=== PATIENT | female | born 1955 | race Caucasian/White ===

== ENCOUNTER 2017-02-21 19:04 | Inpatient (IN) | payer BC, OTHER ==
[2017-02-21] MEDS ORDERED: KETOROLAC 30 MG/ML 1 ML VIAL IVP STA (19:50)
[2017-02-21] MEDS ORDERED: SODIUM CHLORIDE 0.9% 1,000 ML IV STA (19:50)
[2017-02-21] MEDS ORDERED: SODIUM CHLORIDE 0.9% 500 ML IV STA (19:50)
--- NOTE | 2017-02-21 20:34 | XR ---
EXAMINATION TYPE: XR chest 2V DATE OF EXAM: 02/21/2017 COMPARISON: 09/16/16 HISTORY: Shortness of breath TECHNIQUE: Frontal and lateral views of the chest are obtained. FINDINGS: Scattered senescent parenchymal changes noted. Hyperinflation compatible with COPD. No evidence for infiltrate. No evidence for atelectasis. Heart size is stable. Mediastinal structures are stable and grossly unremarkable. No evidence for hilar prominence. Degenerative changes dorsal spine. IMPRESSION: 1. No evidence for acute pulmonary disease.
[2017-02-21 20:37] LABS: Basophils % (A) 0 %; CH 29.5; Eosinophils # (A) 0.1 k/uL (0-0.7); Eosinophils % (A) 1 %; HCT 38.5 % (34.0-46.0); HDW 2.29; HGB 12.7 gm/dL (11.4-16.0); Luc # (Auto) 0.19; Luc % (Auto) 2; Lymphocytes # (A) 1.5 k/uL (1.0-4.8); Lymphocytes % (A) 15 %; MCH 29.7 pg (25.0-35.0); MCHC 33.1 g/dL (31.0-37.0); MCV 89.8 fL (80.0-100.0); Monocytes # (A) 0.8 k/uL (0-1.0); Monocytes % (A) 8 %; Neutrophils # (A) 7.3 k/uL (1.3-7.7); Neutrophils % (A) 74 %; RBC 4.28 m/uL (3.80-5.40); RDW 13.8 % (11.5-15.5); WBC 9.8 k/uL (3.8-10.6); WBC (Perox) 10.05
[2017-02-21 20:43] LABS: ALT 85 U/L (9-52); AST 82 U/L (14-36); Alkaline Phosphatase 108 U/L (38-126); Anion Gap 10 mmol/L; Blood Urea Nitrogen 9 mg/dL (7-17); Calcium 9.1 mg/dL (8.4-10.2); Carbon Dioxide 27 mmol/L (22-30); Chloride 103 mmol/L (98-107); Glucose 118 mg/dL (74-99); Non-African American GFR(MDRD) >60 (>60 ml/min/1.73 sqM); Potassium 3.9 mmol/L (3.5-5.1); Sodium 140 mmol/L (137-145); Total Bilirubin 0.8 mg/dL (0.2-1.3)
[2017-02-21 20:47] LABS: Prothrombin Time 10.2 sec (9.0-12.0)
[2017-02-21 20:50] LABS: Creatine Kinase 75 U/L (30-135)
[2017-02-21 21:02] LABS: Creatine Kinase MB <0.2 ng/mL (0.0-2.4); Troponin I <0.012 ng/mL (0.000-0.034)
[2017-02-21] MEDS ORDERED: RX INFO: IV CONTRAST WAS GIVEN 1 EACH MISC MISCELLANE PRN (21:17)
--- NOTE | 2017-02-21 22:06 | ED ---
General Adult HPI - General Chief complaint: Shortness of Breath Stated complaint: SOB Time Seen by Provider: 02/21/17 19:35 Source: patient Mode of arrival: ambulatory Limitations: no limitations - Related Data Home Medications Medication Instructions Recorded Confirmed Lisinopril 40 mg PO HS 12/09/14 02/21/17 Lovastatin [Mevacor] 20 mg PO HS 12/09/14 02/21/17 Atenolol [Atenolol] 100 mg PO DAILY 12/10/14 02/21/17 hydrALAZINE HCL 25 mg PO BID 06/11/15 02/21/17 Budesonide-Formot 160-4.5 Mcg 2 puff INHALATION RT-BID 09/16/16 02/21/17 [Symbicort 160-4.5 Mcg Inhaler] Levothyroxine Sodium [Synthroid] 100 mcg PO DAILY 09/17/16 02/21/17 Cyclobenzaprine [Flexeril] 10 mg PO TID PRN 02/21/17 02/21/17 Omeprazole 20 mg PO BID 02/21/17 02/21/17 Allergies Allergy/AdvReac Type Severity Reaction Status Date / Time No Known Allergies Allergy Verified 02/21/17 20:13 Review of Systems ROS Statement: Those systems with pertinent positive or pertinent negative responses have been documented in the HPI. ROS Other: All systems not noted in ROS Statement are negative. Past Medical History Past Medical History: GERD/Reflux, Pulmonary Embolus (PE) Additional Past Medical History / Comment(s): chronic neck pain with bulging discs, arthritis, DVT with PE in 2002 History of Any Multi-Drug Resistant Organisms: None Reported Past Surgical History: Cholecystectomy, Hernia Repair Additional Past Surgical History / Comment(s): hiatel hernia Past Anesthesia/Blood Transfusion Reactions: No Reported Reaction Additional Past Anesthesia/Blood Transfusion Reaction / Comment(s): dry heaves from anesthesia Past Psychological History: No Psychological Hx Reported Smoking Status: Never smoker Past Alcohol Use History: None Reported Past Drug Use History: None Reported - Past Family History Brother(s) Family Medical History: Cancer Additional Family Medical History / Comment(s): bone cancer. brain cancer Sister(s) History Unknown: Yes Family Medical History: Cancer Additional Family Medical History / Comment(s): skin cancer. colon cancer Father Family Medical History: Cancer Additional Family Medical History / Comment(s): prostate,lung and brain cancer General Exam Limitations: no limitations Course Vital Signs 02/21/17 02/21/17 19:11 21:26 Temperature 98.4 F Pulse Rate 100 93 Respiratory 26 H 16 Rate Blood Pressure 145/79 135/66 O2 Sat by Pulse 95 96 Oximetry Medical Decision Making - Medical Decision Making Medical decision making the patient's white count is 9.8 hemoglobin 12.7 hematocrit 38.5 with a INR 1.0. D-dimer is elevated 1.75, potassium 3.9 BUN 9 creatinine 0.94 and GFR greater than 60. Glucose 118. Troponin less than 0.012. Chest x-ray was done and reviewed by radiologist his impression is no evidence for acute pulmonary disease. As read by Dr. Lopez CT of the chest was done and reviewed by radiologist his findings are multiple bilateral pulmonary emboli, involving both upper and lower lobes, with segmental and subsegmental involvement. It may be a small amount of thrombus in the main pulmonary trunk along its left lateral superior margin. Aorta thoracic aorta is intact without evidence of dissection. Lungs small left pleural effusion with underlying compressive atelectasis, an additional atelectasis in the right lower lobe and lingula. Heart the right ventricular size is similar to that of the left ventricle suggesting a component of RV strain. No significant pericardial effusion. Final impression #1 multiple bilateral pulmonary emboli. There appears to be a component of associated right ventricular strain. This was called and Dr. Mark at the time of dictation Eastern standard time. A small left pleural effusion with left greater than the right basilar atelectasis. Additional findings as above. As read by Dr. hilliard Patient had high-dose heparin started applying report by radiologist. The case admitted discussed with Dr. Ruiz the patient's to be admitted to his service with pulmonary consultation - Lab Data Result diagrams: 02/21/17 19:35 02/21/17 19:35 Lab Results 02/21/17 02/21/17 02/21/17 Range/Units 19:35 19:35 19:35 WBC 9.8 (3.8-10.6) k/uL RBC 4.28 (3.80-5.40) m/uL Hgb 12.7 (11.4-16.0) gm/dL Hct 38.5 (34.0-46.0) % MCV 89.8 (80.0-100.0) fL MCH 29.7 (25.0-35.0) pg MCHC 33.1 (31.0-37.0) g/dL RDW 13.8 (11.5-15.5) % Plt Count 193 (150-450) k/uL Neutrophils % 74 % Lymphocytes % 15 % Monocytes % 8 % Eosinophils % 1 % Basophils % 0 % Neutrophils # 7.3 (1.3-7.7) k/uL Lymphocytes # 1.5 (1.0-4.8) k/uL Monocytes # 0.8 (0-1.0) k/uL Eosinophils # 0.1 (0-0.7) k/uL Basophils # 0.0 (0-0.2) k/uL PT (9.0-12.0) sec INR (<1.1) D-Dimer (<0.60) mg/L FEU Sodium 140 (137-145) mmol/L Potassium 3.9 (3.5-5.1) mmol/L Chloride 103 (98-107) mmol/L Carbon Dioxide 27 (22-30) mmol/L Anion Gap 10 mmol/L BUN 9 (7-17) mg/dL Creatinine 0.94 (0.52-1.04) mg/dL Est GFR (MDRD) Af Amer >60 (>60 ml/min/1.73 sqM) Est GFR (MDRD) Non-Af >60 (>60 ml/min/1.73 sqM) Glucose 118 H (74-99) mg/dL Calcium 9.1 (8.4-10.2) mg/dL Total Bilirubin 0.8 (0.2-1.3) mg/dL AST 82 H (14-36) U/L ALT 85 H (9-52) U/L Alkaline Phosphatase 108 (38-126) U/L Total Creatine Kinase 75 (30-135) U/L CK-MB (CK-2) <0.2 (0.0-2.4) ng/mL CK-MB (CK-2) Rel Index Troponin I <0.012 (0.000-0.034) ng/mL Total Protein 7.0 (6.3-8.2) g/dL Albumin 4.0 (3.5-5.0) g/dL 02/21/17 Range/Units 19:35 WBC (3.8-10.6) k/uL RBC (3.80-5.40) m/uL Hgb (11.4-16.0) gm/dL Hct (34.0-46.0) % MCV (80.0-100.0) fL MCH (25.0-35.0) pg MCHC (31.0-37.0) g/dL RDW (11.5-15.5) % Plt Count (150-450) k/uL Neutrophils % % Lymphocytes % % Monocytes % % Eosinophils % % Basophils % % Neutrophils # (1.3-7.7) k/uL Lymphocytes # (1.0-4.8) k/uL Monocytes # (0-1.0) k/uL Eosinophils # (0-0.7) k/uL Basophils # (0-0.2) k/uL PT 10.2 (9.0-12.0) sec INR 1.0 (<1.1) D-Dimer 1.75 H (<0.60) mg/L FEU Sodium (137-145) mmol/L Potassium (3.5-5.1) mmol/L Chloride (98-107) mmol/L Carbon Dioxide (22-30) mmol/L Anion Gap mmol/L BUN (7-17) mg/dL Creatinine (0.52-1.04) mg/dL Est GFR (MDRD) Af Amer (>60 ml/min/1.73 sqM) Est GFR (MDRD) Non-Af (>60 ml/min/1.73 sqM) Glucose (74-99) mg/dL Calcium (8.4-10.2) mg/dL Total Bilirubin (0.2-1.3) mg/dL AST (14-36) U/L ALT (9-52) U/L Alkaline Phosphatase (38-126) U/L Total Creatine Kinase (30-135) U/L CK-MB (CK-2) (0.0-2.4) ng/mL CK-MB (CK-2) Rel Index Troponin I (0.000-0.034) ng/mL Total Protein (6.3-8.2) g/dL Albumin (3.5-5.0) g/dL Disposition Clinical Impression: Bilateral pulmonary embolism Disposition: ADMITTED IP TO THIS HOSP Condition: Serious Referrals: Dino Ruiz MD [Primary Care Provider] - 1-2 days
[2017-02-21] MEDS ORDERED: HEPARIN SODIUM,PORCINE 5,000 UNIT/ML 1 ML VIAL IV STA (22:29)
--- NOTE | 2017-02-21 22:29 | CT ---
EXAM: CT Angiography Chest With Intravenous Contrast CLINICAL HISTORY: Reason: CP, short of breath,history PE, elev d dimer TECHNIQUE: Axial computed tomographic angiography images of the chest with intravenous contrast using pulmonary embolism protocol. CTDI is 49.27 mGy and DLP is 571 mGy-cm. This CT exam was performed using one or more of the following dose reduction techniques: automated exposure control, adjustment of the mA and/or kV according to patient size, and/or use of iterative reconstruction technique. MIP reconstructed images were created and reviewed. COMPARISON: Earlier chest radiographs of the same evening. FINDINGS: Pulmonary arteries: Multiple bilateral pulmonary emboli, involving both upper and lower lobes, with segmental and subsegmental involvement. There may be a small amount of thrombus in the main pulmonary trunk along its left lateral superior margin. Aorta: Thoracic aorta is intact without evidence of dissection. Lungs: Small left pleural effusion with underlying compressive atelectasis, and additional atelectasis in the right lower lobe and lingula. Pleural space: See above. Heart: The right ventricular size is similar to that of the left ventricle suggesting a component of RV strain. No significant pericardial effusion. Bones/joints: Degenerative changes without acute osseous abnormality. No dislocation. Soft tissues: Unremarkable. Lymph nodes: No adenopathy seen. Upper abdomen: 12 mm hypodense lesion in the posterior segment right hepatic lobe most suggestive of a cyst. Prior cholecystectomy. Stomach and bowel: Small to moderate sized hiatal hernia with evidence of previous surgery at the GE junction. IMPRESSION: 1. Multiple bilateral pulmonary emboli. There appears to be a component of associated right ventricular strain. This was called to Dr. Mark at time of dictation 2227 hrs. Eastern standard time 2. Small left pleural effusion with left greater than the right basilar atelectasis. 3. Additional findings as above. [employer] 02/21/17 22:26 Call Doctor Regarding Pulmonary Embolism, called Dr. Mark on 02/21 22:26 (-04:00)
[2017-02-21] MEDS ORDERED: NALOXONE 0.4 MG/ML 1 ML VIAL IV PRN (22:37)
[2017-02-21] MEDS ORDERED: CYCLOBENZAPRINE 10 MG TAB PO PRN (22:40)
[2017-02-21] MEDS: HEPARIN SODIUM,PORCINE/D5W PMX 25,000 UNIT in DEXTROSE/WATER 1 500ML.BAG IV SCH (23:09)
[2017-02-22] MEDS ORDERED: PANTOPRAZOLE 40 MG TABLET PO STA (00:20)
[2017-02-22] MEDS ORDERED: ATORVASTATIN 20 MG TAB PO STA (00:21)
[2017-02-22] MEDS ORDERED: hydrALAZINE HCL 25 MG TAB PO STA (00:21)
[2017-02-22] MEDS ORDERED: LISINOPRIL 20 MG TAB PO STA (00:22)
[2017-02-22] MEDS ORDERED: HYDROcodone/APAP 5-325MG 1 EACH TAB PO PRN (00:49)
[2017-02-22] MEDS: SODIUM CHLORIDE 0.9% 1,000 ML IV SCH ×3 (01:34→22:01)
[2017-02-22 05:43] LABS: Basophils % (A) 0 %; CH 29.4; CHCM 32.9; Eosinophils # (A) 0.1 k/uL (0-0.7); Eosinophils % (A) 2 %; HCT 33.9 % (34.0-46.0); HDW 2.27; Luc # (Auto) 0.13; Luc % (Auto) 2; Lymphocytes # (A) 1.5 k/uL (1.0-4.8); Lymphocytes % (A) 23 %; MCH 29.2 pg (25.0-35.0); MCHC 32.4 g/dL (31.0-37.0); Mean Platelet Volume 7.5; Monocytes # (A) 0.5 k/uL (0-1.0); Monocytes % (A) 7 %; Neutrophils # (A) 4.4 k/uL (1.3-7.7); Neutrophils % (A) 67 %; RBC 3.77 m/uL (3.80-5.40); WBC 6.5 k/uL (3.8-10.6); WBC (Perox) 7.02
[2017-02-22 06:06] LABS: Anion Gap 8 mmol/L; Blood Urea Nitrogen 14 mg/dL (7-17); Calcium 8.3 mg/dL (8.4-10.2); Carbon Dioxide 24 mmol/L (22-30); Chloride 109 mmol/L (98-107); Glucose 112 mg/dL (74-99); Non-African American GFR(MDRD) 50 (>60 ml/min/1.73 sqM); Phosphorous 4.1 mg/dL (2.5-4.5); Potassium 3.7 mmol/L (3.5-5.1); Sodium 141 mmol/L (137-145)
[2017-02-22] MEDS: LEVOTHYROXINE 100 MCG TAB PO SCH (06:55)
[2017-02-22] MEDS ORDERED: POTASSIUM CHLORIDE ER 20 MEQ TAB.ER PO SCH (07:00)
--- NOTE | 2017-02-22 07:32 | XR ---
EXAMINATION TYPE: XR chest 1V portable DATE OF EXAM: 02/22/2017 HISTORY: PE. REFERENCE: Previous study dated 02/21/2017. FINDINGS: The lungs are clear. Heart size upper limits of normal. There is a stable left pleural reac tion which may represent some pleural thickening or pleural fluid this was not present in 2016. IMPRESSION: PROBABLE SMALL LEFT EFFUSION.
[2017-02-22] MEDS: ATENOLOL 50 MG TAB PO SCH (08:17)
[2017-02-22] MEDS: hydrALAZINE HCL 25 MG TAB PO SCH ×2 (08:17→20:15)
[2017-02-22] MEDS: SYMBICORT 160-4.5 MCG INHALER INHALATION SCH ×2 (08:57→19:38)
[2017-02-22] MEDS ORDERED: PANTOPRAZOLE 40 MG/10 ML VIAL IV SCH (09:00)
--- NOTE | 2017-02-22 12:44 | ECHOF ---
Referral Reason:Bilateral pulmonary emboli RV strain rule out MEASUREMENTS -------- HEIGHT: 157.5 cm WEIGHT: 81.2 kg BP: 117/63 RVIDd: 2.6 cm (< 3.3) IVSd: 1.1 cm (0.6 - 1.1) LVIDd: 3.5 cm (3.9 - 5.3) LVPWd: 1.1 cm (0.6 - 1.1) IVSs: 1.4 cm LVIDs: 2.1 cm LVPWs: 1.3 cm LA Diam: 2.4 cm (2.7 - 3.8) LAESV Index (A-L): 19.50 ml/m Ao Diam: 2.5 cm (2.0 - 3.7) AV Cusp: 1.8 cm (1.5 - 2.6) MV EXCURSION: 18.894 mm (> 18.000) MV EF SLOPE: 119 mm/s (70 - 150) EPSS: 0.4 cm MV E Pedro: 1.04 m/s MV DecT: 181 ms MV A Pedro: 0.82 m/s MV E/A Ratio: 1.27 FINDINGS -------- Sinus rhythm. This was a technically good study. The left ventricular size is normal. There is borderline concentric left ventricular hypertrophy. Overall left ventricular systolic function is normal with, an EF between 55 - 60 %. The right ventricle is normal in size and function. Normal LA size by volume 22+/-6 ml/m2. The right atrium is normal in size. The aortic valve is trileaflet and appears structurally normal. The mitral valve is normal. The tricuspid valve appears structurally normal. Trace/mild (physiologic) pulmonic regurgitation. The aortic root, ascending aorta and aortic arch are normal. Normal inferior vena cava with normal inspiratory collapse consistent with estimated right atrial pressure of 5 mmHg. The pericardium is normal. CONCLUSIONS -------- 1. Sinus rhythm. 2. The tricuspid valve appears structurally normal. 3. Trace/mild (physiologic) pulmonic regurgitation. 4. The aortic root, ascending aorta and aortic arch are normal. 5. Normal inferior vena cava with normal inspiratory collapse consistent with estimated right atrial pressure of 5 mmHg. 6. The pericardium is normal. 7. This was a technically good study. 8. The left ventricular size is normal. 9. There is borderline concentric left ventricular hypertrophy. 10. Overall left ventricular systolic function is normal with, an EF between 55 - 60 %. 11. The right ventricle is normal in size and function. 12. Normal LA size by volume 22+/-6 ml/m2. 13. The aortic valve is trileaflet and appears structurally normal. 14. The mitral valve is normal. [employer]: Renee Manzo RDCS
--- NOTE | 2017-02-22 13:15 | P.HPIM ---
History of Present Illness H&P Date: 02/22/17 A 61-year-old female presented on the day of admission to the emergency room with a chief complaint of developing shortness of breath onset several days prior. Patient stated that it hurts taken a deep breath causes pain tightness and pressure in the chest. Patient stated I felt like I just couldn't take and of breath. Patient stated it felt similar to a prior event when she was diagnosed with a pulmonary emboli in 1999. Patient was on no anticoagulation this admission. Patient denied any hemoptysis cough fever or chills. In the emergency room was afebrile tachypneic respiratory rate 26 with a heart rate in the 100s. Patient did undergo CAT scan of the chest emergency room it did show evidence of bilateral multiple pulmonary emboli involving both the upper and lower lobes with the right ventricle size similar to the left ventricle size suggesting a component of RV strain. No evidence of pericardial effusion. The patient did undergo an echocardiogram showed left ventricular systolic function normal with an EF between 55 and 60%. Subsequently the patient was admitted to the intensive care unit and started on IV heparin. Patient stated the last pulmonary emboli in 1999 the patient was on Coumadin for 6 months and then it was stopped. Patient additionally states her last hospitalization was in August 2016 at that time the patient stated that she was treated for an acute cholecystitis with the patient underwent a laparoscopic cholecystectomy on 09/18/2016 Review of Systems Essentially unremarkable except as mentioned in the present illness Past Medical History Past Medical History: GERD/Reflux, Hyperlipidemia, Hypertension, Osteoarthritis (OA), Pulmonary Embolus (PE) Additional Past Medical History / Comment(s): chronic neck pain with bulging discs, DVT with PE in 2002 History of Any Multi-Drug Resistant Organisms: None Reported Past Surgical History: Cholecystectomy, Hernia Repair Additional Past Surgical History / Comment(s): hiatel hernia Past Anesthesia/Blood Transfusion Reactions: No Reported Reaction Additional Past Anesthesia/Blood Transfusion Reaction / Comment(s): dry heaves from anesthesia Past Psychological History: No Psychological Hx Reported Smoking Status: Never smoker Past Alcohol Use History: None Reported Past Drug Use History: None Reported - Past Family History Brother(s) Family Medical History: Cancer Additional Family Medical History / Comment(s): bone cancer. brain cancer Sister(s) History Unknown: Yes Family Medical History: Cancer Additional Family Medical History / Comment(s): skin cancer. colon cancer Father Family Medical History: Cancer Additional Family Medical History / Comment(s): prostate,lung and brain cancer Medications and Allergies Home Medications Medication Instructions Recorded Confirmed Type Lisinopril 40 mg PO HS 12/09/14 02/21/17 History Lovastatin [Mevacor] 20 mg PO HS 12/09/14 02/21/17 History Atenolol [Atenolol] 100 mg PO DAILY 12/10/14 02/21/17 History hydrALAZINE HCL 25 mg PO BID 06/11/15 02/22/17 History Budesonide-Formot 160-4.5 Mcg 2 puff INHALATION RT-BID 09/16/16 02/21/17 History [Symbicort 160-4.5 Mcg Inhaler] Levothyroxine Sodium [Synthroid] 100 mcg PO DAILY 09/17/16 02/21/17 History Cyclobenzaprine [Flexeril] 10 mg PO TID PRN 02/21/17 02/21/17 History Omeprazole 20 mg PO BID 02/21/17 02/22/17 History Allergies Allergy/AdvReac Type Severity Reaction Status Date / Time No Known Allergies Allergy Verified 02/21/17 20:13 Physical Exam Vitals: Vital Signs Temp Pulse Resp BP Pulse Ox 02/22/17 11:00 78 26 H 115/67 96 02/22/17 10:00 73 19 117/63 96 02/22/17 09:00 74 20 113/72 98 02/22/17 08:00 98.3 F 67 17 115/74 96 02/22/17 07:00 82 17 105/70 98 02/22/17 06:00 67 18 104/72 97 02/22/17 05:00 73 20 95/60 97 02/22/17 04:00 98.1 F 72 15 93/55 98 02/22/17 03:00 81 17 95/57 98 02/22/17 02:00 75 16 111/65 98 02/22/17 01:00 89 26 H 144/79 88 L 02/22/17 00:01 97.9 F 77 24 142/73 92 L 02/21/17 23:12 87 18 113/70 98 02/21/17 21:26 93 16 135/66 96 02/21/17 19:11 98.4 F 100 26 H 145/79 95 Intake and Output 02/21/17 02/22/17 02/22/17 22:59 06:59 14:59 Intake Total 719.349 410 Output Total 400 Balance 719.349 10 Intake: IV 520 350 Heparin Sodium,Porcine/ 100 D5w Pmx 25,000 unit In Dextrose/Water 1 500ml. bag @ 18 UNITS/KG/HR 28. 21 mls/hr IV .[id number] CHAR Rx#:[id number] Sodium Chloride 0.9% 1, 420 350 000 ml @ 70 mls/hr IV . [id number] CHAR Rx#:[id number] Intake, IV Titration 169.349 Amount Heparin Sodium,Porcine/ 169.349 D5w Pmx 25,000 unit In Dextrose/Water 1 500ml. bag @ 18 UNITS/KG/HR 28. 21 mls/hr IV .[id number] CHAR Rx#:[id number] Oral 30 60 Output: Urine 400 Other: Voiding Method Bedpan Bedpan Weight 78.381 kg 81.2 kg GENERAL APPEARANCE: 61-year-old female patient is alert, oriented, in no acute distress. Sitting up in bed currently is denying shortness of breath dizziness lightheadedness or chest pain when questioning VITAL SIGNS: Reviewed HEENT: Head is normocephalic and atraumatic. Pupils are equal and reactive. The nares are patent. Oropharynx is clear without lesions. NECK: Supple without lymphadenopathy. Traches midline. HEART: S1, S2. Regular rate and rhythm. Monitor sinus rhythm no murmur noted LUNGS: No crackles or wheezes are heard. Adequate air movement bilaterally on room air the sats are documented 96% no cough noted no use of accessory muscles to breathe patient states feels like she can take a deeper breath compared to omission ABDOMEN: Soft, nontender, nondistended with good bowel sounds. No peritoneal signs. No palpable organomegaly or masses. Denies any burning on urination frequency urgency or incontinence denies any nausea or vomiting denies a change in bowel habits denies any blood in stool EXTREMITIES: Normal skin color and turgor. No cyanosis, rash, ulceration, clubbing or edema. Radial pedal pulses are 2/4 bilaterally. Denies any calf tenderness NEUROLOGICAL: No focal deficits. Strength and sensation are grossly intact. Results CBC & Chem 7: 02/22/17 04:59 02/22/17 04:59 Labs: Abnormal Lab Results - Last 24 Hours (Table) 02/21/17 02/21/17 02/22/17 Range/Units 19:35 19:35 04:59 RBC 3.77 L (3.80-5.40) m/uL Hgb 11.0 L (11.4-16.0) gm/dL Hct 33.9 L (34.0-46.0) % APTT (22.0-30.0) sec D-Dimer 1.75 H (<0.60) mg/L FEU Chloride (98-107) mmol/L Creatinine (0.52-1.04) mg/dL Glucose 118 H (74-99) mg/dL Calcium (8.4-10.2) mg/dL AST 82 H (14-36) U/L ALT 85 H (9-52) U/L 02/22/17 02/22/17 Range/Units 04:59 04:59 RBC (3.80-5.40) m/uL Hgb (11.4-16.0) gm/dL Hct (34.0-46.0) % APTT 95.3 H (22.0-30.0) sec D-Dimer (<0.60) mg/L FEU Chloride 109 H (98-107) mmol/L Creatinine 1.10 H (0.52-1.04) mg/dL Glucose 112 H (74-99) mg/dL Calcium 8.3 L (8.4-10.2) mg/dL AST (14-36) U/L ALT (9-52) U/L Thrombosis Risk Factor Assmnt - Choose All That Apply Any of the Below Risk Factors Present?: Yes Each Factor Represents 1 point: Obesity (BMI >25) Other Risk Factors: Yes Each Risk Factor Represents 2 Points: Age 61-74 years Each Risk Factor Represents 3 Points: History of DVT/PE Other congenital or acquired thrombophilia - If yes, enter type in comment: No Thrombosis Risk Factor Assessment Total Risk Factor Score: 6 Thrombosis Risk Factor Assessment Level: High Risk Assessment and Plan Plan: Impression Present on admission shortness of breath with a CAT scan of the chest showing multiple bilateral pulmonary emboli involving upper and lower lobes with a small amount of thrombus in the main pulmonary trunk History of a prior pulmonary emboli in 2002 Hypertension Obesity Echocardiogram February 22 left contiguous systolic function normal with an EF between 55 and 60% History of esophageal reflux disease History of a DVT and pulmonary emboli in 2002 Hyperlipidemia Chronic neck pain Mild Asthma no evidence of acute exacerbation Plan Continue IV heparin as ordered Doppler the lower extremities Cardiology eval pending Cardiovascular dr willis to eval if the patient is a candidate for embolectomy would transfer to a tertiary center for higher level of care if felt to be a candidate will start Coumadin 5 mg daily patient indicates preferring Coumadin was on that in 2002 and has no prescription coverage DVT and GI prophylaxis Repeat labs in the morning Further recommendations pending Resume home meds as appropriate Consult Dr. Clinton hematology oncology coagulopathy workup if indicated The above dictated assessment and findings were discussed with dr yañez Impression and the plan of care have been dictated as directed. Latisha Shafer nurse practitioner acting as a scribe for dr yañez
--- NOTE | 2017-02-22 13:25 | P.CNPUL ---
History of Present Illness Consult date: 02/22/17 Requesting physician: Dino Ruiz Reason for consult: pulmonary embolism Chief complaint: Shortness of breath History of present illness: This is a 61-year-old female patient being evaluated and examined today in the intensive care unit. She came into the emergency room with severe increasing shortness of breath. She was noted to have an elevated d-dimer of 1.75, chest x -ray was done and was negative, a CTA of the chest was done and shows multiple bilateral pulmonary emboli involving both upper and lower lobes with segmental and subsegmental involvement. There is a possible small thrombus in the main pulmonary trunk as well. Lungs were also noted to have bilateral pleural effusions with the left greater than the right. Patient was subsequently started on high-dose heparin per protocol and admitted to the hospital with a pulmonary consultation. Also today cardiothoracic surgery was consulted. Upon examination patient's resting up in bed and states that she feels less of short of breath today. She currently is using 2 L of supplemental oxygen via nasal cannula. The patient does not use home oxygen. Patient does have a known history of PE and DVTs in the past. Review of Systems 14 point review of systems was completed and is negative other than what's noted in the HPI. Past Medical History Past Medical History: GERD/Reflux, Hyperlipidemia, Hypertension, Osteoarthritis (OA), Pulmonary Embolus (PE) Additional Past Medical History / Comment(s): chronic neck pain with bulging discs, DVT with PE in 2002 History of Any Multi-Drug Resistant Organisms: None Reported Past Surgical History: Cholecystectomy, Hernia Repair Additional Past Surgical History / Comment(s): hiatel hernia Past Anesthesia/Blood Transfusion Reactions: No Reported Reaction Additional Past Anesthesia/Blood Transfusion Reaction / Comment(s): dry heaves from anesthesia Past Psychological History: No Psychological Hx Reported Smoking Status: Never smoker Past Alcohol Use History: None Reported Past Drug Use History: None Reported - Past Family History Brother(s) Family Medical History: Cancer Additional Family Medical History / Comment(s): bone cancer. brain cancer Sister(s) History Unknown: Yes Family Medical History: Cancer Additional Family Medical History / Comment(s): skin cancer. colon cancer Father Family Medical History: Cancer Additional Family Medical History / Comment(s): prostate,lung and brain cancer Medications and Allergies Home Medications Medication Instructions Recorded Confirmed Type Lisinopril 40 mg PO HS 12/09/14 02/21/17 History Lovastatin [Mevacor] 20 mg PO HS 12/09/14 02/21/17 History Atenolol [Atenolol] 100 mg PO DAILY 12/10/14 02/21/17 History hydrALAZINE HCL 25 mg PO BID 06/11/15 02/22/17 History Budesonide-Formot 160-4.5 Mcg 2 puff INHALATION RT-BID 09/16/16 02/21/17 History [Symbicort 160-4.5 Mcg Inhaler] Levothyroxine Sodium [Synthroid] 100 mcg PO DAILY 09/17/16 02/21/17 History Cyclobenzaprine [Flexeril] 10 mg PO TID PRN 02/21/17 02/21/17 History Omeprazole 20 mg PO BID 02/21/17 02/22/17 History Allergies Allergy/AdvReac Type Severity Reaction Status Date / Time No Known Allergies Allergy Verified 02/21/17 20:13 Physical Exam Vitals: Vital Signs Temp Pulse Resp BP Pulse Ox 02/22/17 10:00 73 19 117/63 96 02/22/17 09:00 74 20 113/72 98 02/22/17 08:00 98.3 F 67 17 115/74 96 02/22/17 07:00 82 17 105/70 98 02/22/17 06:00 67 18 104/72 97 02/22/17 05:00 73 20 95/60 97 02/22/17 04:00 98.1 F 72 15 93/55 98 02/22/17 03:00 81 17 95/57 98 02/22/17 02:00 75 16 111/65 98 02/22/17 01:00 89 26 H 144/79 88 L 02/22/17 00:01 97.9 F 77 24 142/73 92 L 02/21/17 23:12 87 18 113/70 98 02/21/17 21:26 93 16 135/66 96 02/21/17 19:11 98.4 F 100 26 H 145/79 95 Intake and Output 02/21/17 02/22/17 02/22/17 22:59 06:59 14:59 Intake Total 719.349 340 Output Total 400 Balance 719.349 -60 Intake: IV 520 280 Heparin Sodium,Porcine/ 100 D5w Pmx 25,000 unit In Dextrose/Water 1 500ml. bag @ 18 UNITS/KG/HR 28. 21 mls/hr IV .[id number] CHAR Rx#:[id number] Sodium Chloride 0.9% 1, 420 280 000 ml @ 70 mls/hr IV . [id number] CHAR Rx#:[id number] Intake, IV Titration 169.349 Amount Heparin Sodium,Porcine/ 169.349 D5w Pmx 25,000 unit In Dextrose/Water 1 500ml. bag @ 18 UNITS/KG/HR 28. 21 mls/hr IV .[id number] CHAR Rx#:[id number] Oral 30 60 Output: Urine 400 Other: Voiding Method Bedpan Bedpan Weight 78.381 kg 81.2 kg GENERAL EXAM: Alert, active, comfortable in no apparent distress. HEAD: Normocephalic. EYES: Normal reaction of pupils, equal size. NOSE: Clear with pink turbinates. THROAT: No erythema or exudates. NECK: No masses, no JVD. CHEST: No chest wall deformity. LUNGS: Equal air entry with no crackles, wheeze, rhonchi or dullness. Bases diminished CVS: S1 and S2 normal with no audible mumurs, regular rhythm. ABDOMEN: No hepatosplenomegaly, normal bowel sounds, no guarding or rigidity. EXTREMITIES: No edema noted, pedal pulses palpable. SKIN: No rashes CENTRAL NERVOUS SYSTEM: No focal deficits, tone is normal in all 4 extremities. Results - Laboratory Findings CBC and BMP: 02/22/17 04:59 02/22/17 04:59 PT/INR, D-dimer PT 10.2 sec (9.0-12.0) 02/21/17 19:35 INR 1.0 (<1.1) 02/21/17 19:35 D-Dimer 1.75 mg/L FEU (<0.60) H 02/21/17 19:35 Abnormal lab findings: Abnormal Labs 02/21/17 02/21/17 02/22/17 19:35 19:35 04:59 RBC 3.77 L Hgb 11.0 L Hct 33.9 L APTT D-Dimer 1.75 H Chloride Creatinine Glucose 118 H Calcium AST 82 H ALT 85 H 06/01/17 06/01/17 04:59 04:59 RBC Hgb Hct APTT 95.3 H D-Dimer Chloride 109 H Creatinine 1.10 H Glucose 112 H Calcium 8.3 L AST ALT - Diagnostic Findings Chest x-ray: report reviewed CT scan - chest: report reviewed Assessment and Plan Plan: Assessment Multiple Bilateral pulmonary emboli History of prior pulmonary emboli/DVT in 2002 Acute hypoxic respiratory failure Mild chronic persistent asthma Hypertension Obesity Hyperlipidemia GERD Chronic neck pain Plan Patient can be downgraded from the intensive care unit to the selective care unit. Medications have been reviewed and will be continued as ordered. Patient is also being followed by cardiothoracic surgeon and is being evaluated for possible transfer to a tertiary care facility for catheter directed thrombolytic therapy possibly. Continue with pulmonary hygiene, coughing and deep breathing exercises, and supportive care. Supplemental oxygen to maintain oxygen saturations of 92% or better. Continue nebulizer treatments. GI and DVT prophylaxis. Echocardiogram pending. We will continue to monitor labs/results and adjust treatment as necessary. Further recommendations pending. I performed an examination of the patient and discussed their management with the nurse practitioner. I have reviewed the nurse practitioner's note and agree with the documented findings and plan of care.
--- NOTE | 2017-02-22 14:39 | CONS ---
DATE OF CONSULTATION: CHIEF COMPLAINT: Chest pain. This is a 61-year-old lady with history of hypothyroidism, dyslipidemia, hypertension, and COPD, who comes to hospital with chest pain. She has moderate intensity, sharp pleuritic sort of chest pain involving the right side of her chest. She had initially started with discomfort in the left leg. Patient underwent CT scan of the chest following an elevated d-dimer and was found to have bilateral large pulmonary embolism. An echocardiogram shows normal LV systolic function and no evidence of RV strain. Past medical history is significant for hypertension, dyslipidemia, hypothyroidism. Medications include hydralazine 25 b.i.d., omeprazole 20 b.i.d., Mevacor 20 q. daily, lisinopril 40 q. daily, Synthroid, Flexeril, Symbicort and atenolol. ALLERGIES: There are no known drug allergies. FAMILY HISTORY: Negative for premature coronary artery disease. SOCIAL HISTORY: Negative for smoking, EtOH abuse, or drug abuse. REVIEW OF SYSTEMS: HEENT is unremarkable. CARDIAC: As described above. RESPIRATORY: As described above. GI: Negative. GENITOURINARY: Negative. ALLERGY/IMMUNOLOGY: Negative. SKIN: Negative. MUSCULOSKELETAL: Significant for arthritis. PSYCHOSOCIAL: Negative. ENDOCRINE: Negative. CONSTITUTIONAL: Negative. ONCOLOGICAL: Negative. POT PRESS OPERATOR: Negative. Rest of the system review is not relevant. On exam, he is comfortable at rest. Vital signs are stable. There is no jugular venous distention. Chest exam reveals good air entry bilaterally. Heart exam reveals first and second heart sounds. No gallop. Abdomen is soft, nontender. Exam of the extremities did not reveal edema. Peripheral pulses are felt. Labs show hemoglobin of 11, platelet count is 154. Creatinine is 1.1. Potassium is 3.7. One set of troponin is negative. D-dimer was elevated. I do not have an EKG. Echo had been reviewed. CT scan had been reviewed. ASSESSMENT: Acute bilateral large pulmonary embolism. Patient is stable hemodynamically and does not have any evidence of RV strain. She is not hypotensive. She is not significantly tachycardic. Troponin is not elevated. Will continue with the IV heparin, start her on Coumadin. She needs to be on lifetime anticoagulation. She does not require catheter-based or surgical therapies for pulmonary embolism.
--- NOTE | 2017-02-22 14:42 | P.GSCN ---
History of Present Illness Consult date: 02/22/17 Reason for Consult: Bilateral pulmonary emboli Requesting physician: Dino Ruiz History of present illness: This 61-year-old female patient presented to the emergency room with complaints of shortness of breath over the last several days. She said she started to have cramping in her legs last week and then slowly started to have increasing shortness of breath and chest discomfort. She stated she has had these symptoms previously and was diagnosed with DVTs and pulmonary embolism. At that time she was placed on Coumadin for 6 months. In the emergency room she did have a chest CTA which demonstrated bilateral pulmonary emboli upper and lower lobes, segmental and subsegmental involvement, small thrombus in the main pulmonary trunk, and positive right ventricular strain. She was admitted to the intensive care unit on a heparin drip. Transthoracic echocardiogram this morning demonstrated an ejection fraction of 55-60%, trace pulmonary regurgitation, no right ventricular strain, and no pulmonary hypertension. She is currently pain free and having no difficulty breathing. Cardiothoracic surgery was consulted secondary to the bilateral pulmonary emboli. Review of Systems 14 point review systems was completed and was negative except as noted. - Cardiovascular Reports as per HPI - Respiratory Reports as per HPI - Musculoskeletal Reports as per HPI Past Medical History Past Medical History: GERD/Reflux, Hyperlipidemia, Hypertension, Osteoarthritis (OA), Pulmonary Embolus (PE) Additional Past Medical History / Comment(s): chronic neck pain with bulging discs, DVT with PE in 2002 History of Any Multi-Drug Resistant Organisms: None Reported Past Surgical History: Cholecystectomy, Hernia Repair Additional Past Surgical History / Comment(s): hiatel hernia Past Anesthesia/Blood Transfusion Reactions: No Reported Reaction Additional Past Anesthesia/Blood Transfusion Reaction / Comm: dry heaves from anesthesia Past Psychological History: No Psychological Hx Reported Smoking Status: Never smoker Past Alcohol Use History: None Reported Past Drug Use History: None Reported - Past Family History Brother(s) Family Medical History: Cancer Additional Family Medical History / Comment(s): bone cancer. brain cancer Sister(s) History Unknown: Yes Family Medical History: Cancer Additional Family Medical History / Comment(s): skin cancer. colon cancer Father Family Medical History: Cancer Additional Family Medical History / Comment(s): prostate,lung and brain cancer Medications and Allergies Home Medications Medication Instructions Recorded Confirmed Type Lisinopril 40 mg PO HS 12/09/14 02/21/17 History Lovastatin [Mevacor] 20 mg PO HS 12/09/14 02/21/17 History Atenolol [Atenolol] 100 mg PO DAILY 12/10/14 02/21/17 History hydrALAZINE HCL 25 mg PO BID 06/11/15 02/22/17 History Budesonide-Formot 160-4.5 Mcg 2 puff INHALATION RT-BID 09/16/16 02/21/17 History [Symbicort 160-4.5 Mcg Inhaler] Levothyroxine Sodium [Synthroid] 100 mcg PO DAILY 09/17/16 02/21/17 History Cyclobenzaprine [Flexeril] 10 mg PO TID PRN 02/21/17 02/21/17 History Omeprazole 20 mg PO BID 02/21/17 02/22/17 History Allergies Allergy/AdvReac Type Severity Reaction Status Date / Time No Known Allergies Allergy Verified 02/21/17 20:13 Surgical - Exam Vital Signs Temp Pulse Resp BP Pulse Ox 98.4 F 100 26 H 145/79 95 02/21/17 19:11 02/21/17 19:11 02/21/17 19:11 02/21/17 19:11 02/21/17 19:11 - General well developed, well nourished, no distress, no pain - Eyes PERRL, normal ocular movement - ENT no hearing loss - Neck trachea midline - Respiratory Currently on 2 L nasal cannula with oxygen saturation 98%. normal expansion, normal respiratory effort, clear to auscultation - Cardiovascular Rhythm: regular Heart Sounds: normal: S1, S2 - Abdomen Abdomen: soft, non tender, bowel sounds - Genitourinary Deferred - Rectum Deferred - Integumentary no rash, no growths - Neurologic normal coordination, normal sensation - Psychiatric oriented to time, oriented to person, oriented to place, speech is normal, memory intact Results - Labs 02/22/17 04:59 02/22/17 04:59 Abnormal Lab Results - Last 24 Hours (Table) 02/21/17 02/21/17 02/22/17 Range/Units 19:35 19:35 04:59 RBC 3.77 L (3.80-5.40) m/uL Hgb 11.0 L (11.4-16.0) gm/dL Hct 33.9 L (34.0-46.0) % APTT (22.0-30.0) sec D-Dimer 1.75 H (<0.60) mg/L FEU Chloride (98-107) mmol/L Creatinine (0.52-1.04) mg/dL Glucose 118 H (74-99) mg/dL Calcium (8.4-10.2) mg/dL AST 82 H (14-36) U/L ALT 85 H (9-52) U/L 02/22/17 02/22/17 02/22/17 Range/Units 04:59 04:59 13:06 RBC (3.80-5.40) m/uL Hgb (11.4-16.0) gm/dL Hct (34.0-46.0) % APTT 95.3 H 36.6 H (22.0-30.0) sec D-Dimer (<0.60) mg/L FEU Chloride 109 H (98-107) mmol/L Creatinine 1.10 H (0.52-1.04) mg/dL Glucose 112 H (74-99) mg/dL Calcium 8.3 L (8.4-10.2) mg/dL AST (14-36) U/L ALT (9-52) U/L Diabetes panel 02/21/17 02/22/17 Range/Units 19:35 04:59 Sodium 140 141 (137-145) mmol/L Potassium 3.9 3.7 (3.5-5.1) mmol/L Chloride 103 109 H (98-107) mmol/L Carbon Dioxide 27 24 (22-30) mmol/L BUN 9 14 (7-17) mg/dL Creatinine 0.94 1.10 H (0.52-1.04) mg/dL Glucose 118 H 112 H (74-99) mg/dL Calcium 9.1 8.3 L (8.4-10.2) mg/dL AST 82 H (14-36) U/L ALT 85 H (9-52) U/L Alkaline Phosphatase 108 (38-126) U/L Total Protein 7.0 (6.3-8.2) g/dL Albumin 4.0 (3.5-5.0) g/dL Calcium panel 02/21/17 02/22/17 Range/Units 19:35 04:59 Calcium 9.1 8.3 L (8.4-10.2) mg/dL Phosphorus 4.1 (2.5-4.5) mg/dL Albumin 4.0 (3.5-5.0) g/dL Pituitary panel 02/21/17 02/22/17 Range/Units 19:35 04:59 Sodium 140 141 (137-145) mmol/L Potassium 3.9 3.7 (3.5-5.1) mmol/L Chloride 103 109 H (98-107) mmol/L Carbon Dioxide 27 24 (22-30) mmol/L BUN 9 14 (7-17) mg/dL Creatinine 0.94 1.10 H (0.52-1.04) mg/dL Glucose 118 H 112 H (74-99) mg/dL Calcium 9.1 8.3 L (8.4-10.2) mg/dL Adrenal panel 02/21/17 02/22/17 Range/Units 19:35 04:59 Sodium 140 141 (137-145) mmol/L Potassium 3.9 3.7 (3.5-5.1) mmol/L Chloride 103 109 H (98-107) mmol/L Carbon Dioxide 27 24 (22-30) mmol/L BUN 9 14 (7-17) mg/dL Creatinine 0.94 1.10 H (0.52-1.04) mg/dL Glucose 118 H 112 H (74-99) mg/dL Calcium 9.1 8.3 L (8.4-10.2) mg/dL Total Bilirubin 0.8 (0.2-1.3) mg/dL AST 82 H (14-36) U/L ALT 85 H (9-52) U/L Alkaline Phosphatase 108 (38-126) U/L Total Protein 7.0 (6.3-8.2) g/dL Albumin 4.0 (3.5-5.0) g/dL - Imaging Chest x-ray: image reviewed CT scan - chest: image reviewed Additional studies: Echocardiogram results reviewed Assessment and Plan (1) Bilateral pulmonary embolism Status: Acute (2) Obesity (BMI 30.0-34.9) Status: Acute (3) Hyperlipidemia Status: Chronic (4) Hypertension Status: Chronic Plan: The patient was seen and examined. She's currently in no acute distress. She stable on a heparin drip. Her CTA of the chest and echo results were reviewed. The case will be discussed with Dr. Khan with more recommendations to come. Thank you Dr. Ruiz for this consult. We look for to review the care of your patient. Time with Patient: Greater than 30
--- NOTE | 2017-02-22 15:20 | US ---
EXAMINATION TYPE: US venous doppler duplex LE BI DATE OF EXAM: 02/22/2017 3:11 PM COMPARISON: US CLINICAL HISTORY: rule out dvt. Multiple bilateral PE's, patient on blood thinners, exam done portabl e in ICU SIDE PERFORMED: Bilateral TECHNIQUE: The lower extremity deep venous system is examined utilizing real time linear array sonog иван with graded compression, doppler sonography and color-flow sonography. VESSELS IMAGED: External Iliac Vein (EIV) Common Femoral Vein Deep Femoral Vein Greater Saphenous Vein * Femoral Vein Popliteal Vein Small Saphenous Vein * Proximal Calf Veins (* superficial vessels) Right Leg: Appears negative for DVT Left Leg: Appears negative for DVT No popliteal fossa lesion is seen. IMPRESSION: THIS EXAMINATION IS NEGATIVE FOR DVT IN BOTH LEGS.
--- NOTE | 2017-02-22 17:10 | HP ---
DATE OF ADMISSION: CHIEF COMPLAINT: Chest pain and shortness of breath. HISTORY OF PRESENT ILLNESS: This is another admission for this 61-year-old white female. She noticed some pain in the left calf without any significant swelling. She massaged it with no benefit. She thought it was a cramp. She became short of breath and started to have bilateral lower anterior chest pain. She came to the emergency room. Her d-dimer is elevated. She was found to have multiple pulmonary emboli. She has had no fever, chills, hemoptysis, etc. She has had pulmonary emboli in the past. REVIEW OF SYSTEMS: She has had no headaches, orthopnea, PND, etc. She does have hypertension. She has had no abdominal pain, nausea, vomiting, hematemesis, melena, hematochezia, colitis, diverticulosis, diverticulitis, hemorrhage, jaundice, urinary complaints, arthralgias, diabetes, etc. Past medical history, family history and personal and social histories reveals she is not allergic to any medication. She is on levothyroxine 0.1 mg a day, Symbicort 80/4.5, 2 puffs b.i.d., omeprazole 20 mg twice a day, hydralazine 25 mg twice a day, Flexeril 10 mg t.i.d. p.r.n., vitamin D 50,000 units a month, Zantac 150 mg twice a day for gastritis, atenolol 100 mg once a day, lovastatin 20 mg once a day, lisinopril 40 mg once a day. She does not smoke or drink. PHYSICAL EXAMINATION: VITAL SIGNS: Blood pressure 110/80, pulse 60, respirations 34, she is afebrile. GENERAL: She appeared to be well-developed, well-nourished, in no acute distress. Skin color is normal. Skin is warm and dry. Lymph nodes are not enlarged. Head, ears, eyes, nose, mouth, and throat are normal. Neck veins not distended. Thyroid is not enlarged. Chest is clear. Cardiac exam is normal and in some nontender. Extremities normal. No edema. Neurologically she is intact. IMPRESSION: 1. Multiple pulmonary emboli. 2. Hypertension. PLAN: 1. Bed rest. 2. IV fluids. 3. Anticoagulate. 4. Pulmonology/intensive medicine and vascular surgery consult.
--- NOTE | 2017-02-22 17:24 | PN ---
DATE OF SERVICE: 02/22/2017 CHIEF COMPLAINT: Status post multiple pulmonary emboli. HISTORY OF PRESENT ILLNESS: This lady is presently comfortable. She had no fever, chills, hemoptysis, etc. PHYSICAL EXAMINATION: VITAL SIGNS: Her chest is quite clear. CARDIAC: Normal. ABDOMEN: Soft, nontender. IMPRESSION: 1. Multiple pulmonary emboli. 2. Hypertension. PLAN: Continue with anticoagulation and she will be seen by Thoracic and Vascular Surgery.
[2017-02-22] MEDS ORDERED: HEPARIN SODIUM,PORCINE 5,000 UNIT/ML 1 ML VIAL ONE ×2 (17:30→17:40)
[2017-02-22] MEDS ORDERED: WARFARIN 7.5 MG TAB PO SCH (18:00)
[2017-02-22] MEDS ORDERED: WARFARIN 10 MG TAB PO ONE (18:00)
[2017-02-22] MEDS: HEPARIN SODIUM,PORCINE/D5W PMX 25,000 UNIT in DEXTROSE/WATER 1 500ML.BAG IV SCH ×2 (18:25→21:59)
[2017-02-22] MEDS: ATORVASTATIN 10 MG TAB PO SCH (20:14)
[2017-02-22] MEDS: LISINOPRIL 20 MG TAB PO SCH (20:15)
[2017-02-22] MEDS ORDERED: HEPARIN SODIUM,PORCINE 5,000 UNIT/ML 1 ML VIAL IV PRN (23:20)
[2017-02-23] MEDS: SODIUM CHLORIDE 0.9% 1,000 ML IV SCH ×2 (03:52→17:51)
[2017-02-23 06:35] LABS: Basophils % (A) 0 %; CH 29.5; CHCM 33.9; Eosinophils # (A) 0.2 k/uL (0-0.7); Eosinophils % (A) 3 %; HCT 33.1 % (34.0-46.0); HDW 2.39; HGB 11.3 gm/dL (11.4-16.0); Luc # (Auto) 0.11; Luc % (Auto) 2; Lymphocytes # (A) 1.4 k/uL (1.0-4.8); Lymphocytes % (A) 22 %; MCHC 34.3 g/dL (31.0-37.0); MCV 87.4 fL (80.0-100.0); Mean Platelet Volume 7.5; Monocytes # (A) 0.4 k/uL (0-1.0); Monocytes % (A) 6 %; Neutrophils # (A) 4.2 k/uL (1.3-7.7); Neutrophils % (A) 68 %; RBC 3.78 m/uL (3.80-5.40); RDW 13.4 % (11.5-15.5); WBC 6.2 k/uL (3.8-10.6); WBC (Perox) 6.68
[2017-02-23 06:45] LABS: INR 1.1 (<1.1); Partial Thromboplastin Time 57.6 sec (22.0-30.0); Prothrombin Time 10.8 sec (9.0-12.0)
[2017-02-23] MEDS: PANTOPRAZOLE 40 MG TABLET PO SCH (06:45)
[2017-02-23] MEDS: LEVOTHYROXINE 100 MCG TAB PO SCH (06:45)
[2017-02-23 07:32] LABS: ALT 129 U/L (9-52); AST 80 U/L (14-36); Alkaline Phosphatase 119 U/L (38-126); Anion Gap 8 mmol/L; Blood Urea Nitrogen 13 mg/dL (7-17); Calcium 8.3 mg/dL (8.4-10.2); Carbon Dioxide 23 mmol/L (22-30); Chloride 111 mmol/L (98-107); Glucose 111 mg/dL (74-99); Non-African American GFR(MDRD) 60 (>60 ml/min/1.73 sqM); Potassium 3.8 mmol/L (3.5-5.1); Sodium 142 mmol/L (137-145); Total Bilirubin 0.5 mg/dL (0.2-1.3); Total Protein 5.6 g/dL (6.3-8.2)
[2017-02-23] MEDS: hydrALAZINE HCL 25 MG TAB PO SCH ×2 (08:46→20:50)
[2017-02-23] MEDS: ATENOLOL 50 MG TAB PO SCH (08:46)
[2017-02-23] MEDS: SYMBICORT 160-4.5 MCG INHALER INHALATION SCH ×2 (08:56→19:38)
--- NOTE | 2017-02-23 08:56 | P.PN ---
Subjective Principal diagnosis: Bilateral pulmonary emboli Patient's currently sitting up in bed in no apparent distress. Remains on heparin drip. Objective - Vital Signs Vital signs: Vital Signs Temp 99.1 F 02/23/17 03:59 Pulse 83 02/23/17 03:59 Resp 22 02/23/17 03:59 BP 119/73 02/23/17 03:59 Pulse Ox 93 L 02/23/17 03:59 Intake & Output 02/22/17 02/23/17 02/23/17 18:59 06:59 18:59 Intake Total 997.147 400.267 Output Total 400 Balance 597.147 400.267 Weight 78.1 kg Intake: IV 770 63 Sodium Chloride 0.9% 1, 770 63 000 ml @ 70 mls/hr IV . [id number] CHAR Rx#:[id number] Intake, IV Titration 167.147 97.267 Amount Heparin Sodium,Porcine/ 167.147 97.267 D5w Pmx 25,000 unit In Dextrose/Water 1 500ml. bag @ 18 UNITS/KG/HR 28. 21 mls/hr IV .[id number] CHAR Rx#:[id number] Oral 60 240 Output: Urine 400 Other: Voiding Method Bedside Commode Toilet # Voids 1 1 - Constitutional General appearance: Present: cooperative, no acute distress - Respiratory Details: Currently on room air with oxygen saturation 93%. Respiratory: bilateral: diminished - Cardiovascular Rhythm: regular Heart sounds: normal: S1, S2 - Gastrointestinal General gastrointestinal: Present: normal bowel sounds, soft - Musculoskeletal Musculoskeletal: Present: strength equal bilaterally - Psychiatric Psychiatric: Present: A&O x's 3, appropriate affect, intact judgment & insight - Allied health notes Allied health notes reviewed: nursing - Labs CBC & Chem 7: 02/23/17 06:14 02/23/17 06:14 Labs: Abnormal Lab Results - Last 24 Hours (Table) 02/22/17 02/22/17 02/23/17 Range/Units 13:06 22:47 06:14 RBC 3.78 L (3.80-5.40) m/uL Hgb 11.3 L (11.4-16.0) gm/dL Hct 33.1 L (34.0-46.0) % APTT 36.6 H 52.2 H (22.0-30.0) sec Chloride (98-107) mmol/L Glucose (74-99) mg/dL Calcium (8.4-10.2) mg/dL AST (14-36) U/L ALT (9-52) U/L Total Protein (6.3-8.2) g/dL Albumin (3.5-5.0) g/dL 02/23/17 02/23/17 Range/Units 06:14 06:14 RBC (3.80-5.40) m/uL Hgb (11.4-16.0) gm/dL Hct (34.0-46.0) % APTT 57.6 H (22.0-30.0) sec Chloride 111 H (98-107) mmol/L Glucose 111 H (74-99) mg/dL Calcium 8.3 L (8.4-10.2) mg/dL AST 80 H (14-36) U/L ALT 129 H (9-52) U/L Total Protein 5.6 L (6.3-8.2) g/dL Albumin 2.9 L (3.5-5.0) g/dL Assessment and Plan (1) Bilateral pulmonary embolism Status: Acute (2) Obesity (BMI 30.0-34.9) Status: Acute (3) Hyperlipidemia Status: Chronic (4) Hypertension Status: Chronic Plan: The patient was seen and examined with Dr. Khan. No surgical intervention at this time. Our recommendations would be to continue with heparin, bridge to Coumadin which should be lifelong. We will see patient on an as-needed basis. Please call with any questions. Time with Patient: Greater than 30
--- NOTE | 2017-02-23 09:16 | P.PN ---
Subjective This is a 61-year-old female patient being evaluated and examined today in the intensive care unit. She came into the emergency room with severe increasing shortness of breath. She was noted to have an elevated d-dimer of 1.75, chest x -ray was done and was negative, a CTA of the chest was done and shows multiple bilateral pulmonary emboli involving both upper and lower lobes with segmental and subsegmental involvement. There is a possible small thrombus in the main pulmonary trunk as well. Lungs were also noted to have bilateral pleural effusions with the left greater than the right. Patient was subsequently started on high-dose heparin per protocol and admitted to the hospital with a pulmonary consultation. Also cardiothoracic surgery was consulted. Upon examination patient's resting up in bed and states that she feels less of short of breath today. She currently is on room air however is using 2 L of supplemental oxygen via nasal cannula at at bedtime and when needed. The patient does not use home oxygen. Patient does have a known history of PE and DVTs in the past. Cardiothoracic surgery was consult that yesterday and decided against sending the patient to a tertiary care facility for procedures as it was felt this was on needed at that time. Objective - Vital Signs Vital signs: Vital Signs Temp 98.9 F 02/23/17 08:00 Pulse 77 02/23/17 08:00 Resp 17 02/23/17 08:00 BP 130/79 02/23/17 08:00 Pulse Ox 92 L 02/23/17 08:00 Intake & Output 02/22/17 02/23/17 02/23/17 18:59 06:59 18:59 Intake Total 997.147 400.267 Output Total 400 Balance 597.147 400.267 Weight 78.1 kg Intake: IV 770 63 Sodium Chloride 0.9% 1, 770 63 000 ml @ 70 mls/hr IV . [id number] [facility] Rx#:[id number] Intake, IV Titration 167.147 97.267 Amount Heparin Sodium,Porcine/ 167.147 97.267 D5w Pmx 25,000 unit In Dextrose/Water 1 500ml. bag @ 18 UNITS/KG/HR 28. 21 mls/hr IV .[id number] [facility] Rx#:[id number] Oral 60 240 Output: Urine 400 Other: Voiding Method Bedside Commode Toilet # Voids 1 1 - Exam GENERAL EXAM: Alert, active, comfortable in no apparent distress. HEAD: Normocephalic. EYES: Normal reaction of pupils, equal size. NOSE: Clear with pink turbinates. THROAT: No erythema or exudates. NECK: No masses, no JVD. CHEST: No chest wall deformity. LUNGS: Equal air entry with no crackles, wheeze, rhonchi or dullness. Bases diminished CVS: S1 and S2 normal with no audible mumurs, regular rhythm. ABDOMEN: No hepatosplenomegaly, normal bowel sounds, no guarding or rigidity. EXTREMITIES: No edema noted, pedal pulses palpable. SKIN: No rashes CENTRAL NERVOUS SYSTEM: No focal deficits, tone is normal in all 4 extremities. - Labs CBC & Chem 7: 02/23/17 06:14 02/23/17 06:14 Labs: Abnormal Lab Results - Last 24 Hours (Table) 02/22/17 02/22/17 02/23/17 Range/Units 13:06 22:47 06:14 RBC 3.78 L (3.80-5.40) m/uL Hgb 11.3 L (11.4-16.0) gm/dL Hct 33.1 L (34.0-46.0) % APTT 36.6 H 52.2 H (22.0-30.0) sec Chloride (98-107) mmol/L Glucose (74-99) mg/dL Calcium (8.4-10.2) mg/dL AST (14-36) U/L ALT (9-52) U/L Total Protein (6.3-8.2) g/dL Albumin (3.5-5.0) g/dL 02/23/17 02/23/17 Range/Units 06:14 06:14 RBC (3.80-5.40) m/uL Hgb (11.4-16.0) gm/dL Hct (34.0-46.0) % APTT 57.6 H (22.0-30.0) sec Chloride 111 H (98-107) mmol/L Glucose 111 H (74-99) mg/dL Calcium 8.3 L (8.4-10.2) mg/dL AST 80 H (14-36) U/L ALT 129 H (9-52) U/L Total Protein 5.6 L (6.3-8.2) g/dL Albumin 2.9 L (3.5-5.0) g/dL Assessment and Plan Plan: Assessment Multiple Bilateral pulmonary emboli History of prior pulmonary emboli/DVT in 2002 Acute hypoxic respiratory failure Mild chronic persistent asthma Hypertension Obesity Hyperlipidemia GERD Chronic neck pain Plan Medications have been reviewed and will be continued as ordered. Patient is also being followed by cardiothoracic surgeon. Continue with pulmonary hygiene , coughing and deep breathing exercises, and supportive care. Continue with heparin drip. Supplemental oxygen to maintain oxygen saturations of 92% or better. Continue nebulizer treatments. GI and DVT prophylaxis. Echocardiogram reviewed. We will continue to monitor labs/results and adjust treatment as necessary. Further recommendations pending. I performed an examination of the patient and discussed their management with the nurse practitioner. I have reviewed the nurse practitioner's note and agree with the documented findings and plan of care.
--- NOTE | 2017-02-23 11:28 | P.PN ---
Subjective 61-year-old female seen and examined. Currently is sitting up in bed. States breathing feels improved. Patient states feels less short of breath. Currently is on room air pulse ox sat 92%. No hemoptysis. Did note cardiothoracic surgery was consult and they indicate that the patient currently at this time is not a candidate be transferred to a tertiary center for possible embolectomy. Currently the patient's being followed by cardiology and pulmonary service Patient came into the emergency room with a chief complaint of developing chest pain CAT scan of the chest did show multiple bilateral pulmonary emboli involving both the upper and lower lobes. Also of the lungs were noted to have bilateral pleural effusions left greater than the right. Patient had a previous history of a pulmonary emboli in 2002 at that time was started on Coumadin therapy. Patient stated that she stop the Coumadin therapy 6 months after initiation and has not been on anticoagulation at that time. Patient states that she does not have any prescription coverage and any other anticoagulation may be too costly for her to keep. Patient is requesting to restart Coumadin therapy which she states she can't afford. The INR this morning is 1.1. Patient did receive 10 mg of Coumadin on February 22 Objective - Vital Signs Vital signs: Vital Signs Temp 98.9 F 02/23/17 08:00 Pulse 77 02/23/17 08:00 Resp 17 02/23/17 08:00 BP 130/79 02/23/17 08:00 Pulse Ox 92 L 02/23/17 08:00 Intake & Output 02/22/17 02/23/17 02/23/17 18:59 06:59 18:59 Intake Total 997.147 400.267 600 Output Total 400 Balance 597.147 400.267 600 Weight 78.1 kg Intake: IV 770 63 Sodium Chloride 0.9% 1, 770 63 000 ml @ 70 mls/hr IV . [id number] [facility] Rx#:[id number] Intake, IV Titration 167.147 97.267 Amount Heparin Sodium,Porcine/ 167.147 97.267 D5w Pmx 25,000 unit In Dextrose/Water 1 500ml. bag @ 18 UNITS/KG/HR 28. 21 mls/hr IV .[id number] [facility] Rx#:[id number] Oral 60 240 600 Output: Urine 400 Other: Voiding Method Bedside Commode Toilet # Voids 1 1 - Exam Physical exam 61-year-old female seen and examined sitting up in bed appears in no acute distress Lungs decreased at the bases otherwise adequate air movement no hemoptysis no cough no conversational dyspnea currently on room air sats are documented 92% patient states breathing feels improved Heart S1-S2 audible and regular Abdomen soft reports no nausea vomiting not distended bowel tones present no difficulty in urinating no frequent stooling Extremities no evidence of edema - Labs CBC & Chem 7: 02/23/17 06:14 02/23/17 06:14 Labs: Abnormal Lab Results - Last 24 Hours (Table) 02/22/17 02/22/17 02/23/17 Range/Units 13:06 22:47 06:14 RBC 3.78 L (3.80-5.40) m/uL Hgb 11.3 L (11.4-16.0) gm/dL Hct 33.1 L (34.0-46.0) % APTT 36.6 H 52.2 H (22.0-30.0) sec Chloride (98-107) mmol/L Glucose (74-99) mg/dL Calcium (8.4-10.2) mg/dL AST (14-36) U/L ALT (9-52) U/L Total Protein (6.3-8.2) g/dL Albumin (3.5-5.0) g/dL 02/23/17 02/23/17 Range/Units 06:14 06:14 RBC (3.80-5.40) m/uL Hgb (11.4-16.0) gm/dL Hct (34.0-46.0) % APTT 57.6 H (22.0-30.0) sec Chloride 111 H (98-107) mmol/L Glucose 111 H (74-99) mg/dL Calcium 8.3 L (8.4-10.2) mg/dL AST 80 H (14-36) U/L ALT 129 H (9-52) U/L Total Protein 5.6 L (6.3-8.2) g/dL Albumin 2.9 L (3.5-5.0) g/dL Assessment and Plan Plan: Impression Present on admission shortness of breath with a CAT scan of the chest showing multiple bilateral pulmonary emboli involving upper and lower lobes with a small amount of thrombus in the main pulmonary trunk History of a prior pulmonary emboli in 2002 Hypertension Obesity Echocardiogram February 22 left contiguous systolic function normal with an EF between 55 and 60% History of esophageal reflux disease History of a DVT and pulmonary emboli in 2002 Hyperlipidemia Chronic neck pain Mild Asthma no evidence of acute exacerbation Present on admission shortness of breath suspect due to an acute hypoxic respiratory failure due to multiple bilateral pulmonary emboli as evident on a CAT scan of the chest Dopplers to the bilateral lower extremities no evidence of a DVT Plan Continue IV heparin as ordered bridge with Coumadin will need lifelong Cardiology eval pending DVT and GI prophylaxis Repeat labs in the morning Resume home meds as appropriate Consult Dr. Clinton hematology oncology coagulopathy workup if indicated The above dictated assessment and findings were discussed with dr otilio Joseph and the plan of care have been dictated as directed. Latisha Shafer nurse practitioner acting as a scribe for dr yañez
[2017-02-23 13:46] VITALS: BMI 31.4
--- NOTE | 2017-02-23 15:21 | P.PN ---
Subjective This is a pleasant 61-year-old lady with a history of hypothyroidism, dyslipidemia, hypertension and COPD. She presented to the hospital with chest pain. She initially started with complaints of discomfort in her left leg. Patient underwent computed tomography scan of the chest due to an elevated d- dimer and was found to have large bilateral pulmonary embolism. She underwent echocardiogram that showed normal LV systolic function and no evidence of RV strain. On examination, patient denies any complaints of discomfort. She is breathing well. Objective - Vital Signs Vital signs: Vital Signs Temp 98.9 F 02/23/17 08:00 Pulse 85 02/23/17 12:00 Resp 17 02/23/17 12:00 BP 128/69 02/23/17 12:00 Pulse Ox 97 02/23/17 12:00 Intake & Output 02/22/17 02/23/17 02/23/17 18:59 06:59 18:59 Intake Total 997.147 400.267 600 Output Total 400 Balance 597.147 400.267 600 Weight 78.1 kg 78.1 kg Intake: IV 770 63 Sodium Chloride 0.9% 1, 770 63 000 ml @ 70 mls/hr IV . [id number] [facility] Rx#:[id number] Intake, IV Titration 167.147 97.267 Amount Heparin Sodium,Porcine/ 167.147 97.267 D5w Pmx 25,000 unit In Dextrose/Water 1 500ml. bag @ 18 UNITS/KG/HR 28. 21 mls/hr IV .[id number] [facility] Rx#:[id number] Oral 60 240 600 Output: Urine 400 Other: Voiding Method Bedside Commode Toilet # Voids 1 1 2 - Exam PHYSICAL EXAMINATION: HEENT: Head is atraumatic, normocephalic. Pupils equal, round. Neck is supple. There is no elevated jugular venous pressure. HEART EXAMINATION: Heart sounds regular, S1 and S2 normal. No murmur or gallop heard. CHEST EXAMINATION: Lungs are clear to auscultation and precussion. No chest wall tenderness is noted on palpation or with deep breathing. ABDOMEN: Soft, nontender. Bowel sounds are heard. No organomegaly noted. EXTREMITIES: 2+ peripheral pulses with no evidence of peripheral edema and no calf tenderness noted. NEUROLOGIC patient is awake, alert and oriented x3. . - Labs CBC & Chem 7: 02/23/17 06:14 02/23/17 06:14 Labs: Abnormal Lab Results - Last 24 Hours (Table) 02/22/17 02/23/17 02/23/17 Range/Units 22:47 06:14 06:14 RBC 3.78 L (3.80-5.40) m/uL Hgb 11.3 L (11.4-16.0) gm/dL Hct 33.1 L (34.0-46.0) % APTT 52.2 H (22.0-30.0) sec Chloride 111 H (98-107) mmol/L Glucose 111 H (74-99) mg/dL Calcium 8.3 L (8.4-10.2) mg/dL AST 80 H (14-36) U/L ALT 129 H (9-52) U/L Total Protein 5.6 L (6.3-8.2) g/dL Albumin 2.9 L (3.5-5.0) g/dL 02/23/17 Range/Units 06:14 RBC (3.80-5.40) m/uL Hgb (11.4-16.0) gm/dL Hct (34.0-46.0) % APTT 57.6 H (22.0-30.0) sec Chloride (98-107) mmol/L Glucose (74-99) mg/dL Calcium (8.4-10.2) mg/dL AST (14-36) U/L ALT (9-52) U/L Total Protein (6.3-8.2) g/dL Albumin (3.5-5.0) g/dL Assessment and Plan Plan: Assessment and plan #1 large bilateral pulmonary embolism #2 hypertension #3 dyslipidemia #4 hypothyroidism #5 COPD From cardiology's perspective, patient is hemodynamically stable with no evidence of RV strain. Continue IV heparin and Coumadin. Patient will need lifetime anticoagulation. We'll continue to follow the patient and write further recommendations accordingly. The above dictated assessment and findings were discussed with signing physician. The impression and plan of care have been directed as dictated. Sugey Sierra, Nurse Practitioner, acting as scribe for signing physician.
--- NOTE | 2017-02-23 17:38 | P.CONS ---
History of Present Illness - Reason for Consult Consult date: 02/23/17 Recurrent, bilateral pulmonary embolus - History of Present Illness The patient is a 61-year-old lady, with generally well controlled medical problems. She came into the emergency room because of fairly acute onset of shortness of breath and chest pressure, that are made worse by deep breathing. A CTA of the chest was done, revealing bilateral pulmonary emboli. She was therefore admitted for further management. No provoking factor was identified. The patient stated that she had been having some crampy in the left calf and had used electric massager, fairly recently prior to the onset of shortness of breath. She has a history of DVT and PE in 2002, when she was treated with warfarin for about 6 months. 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 She tolerated warfarin well at that time. She has a strong family history of venous thrombus embolism, with both parents as well as a brother affected Review of Systems Constitutional: Denies chills, Denies fever Eyes: denies blurred vision, denies pain Ears: deny: decreased hearing, ear discharge, earache, tinnitus Ears, nose, mouth and throat: Denies headache, Denies sore throat Cardiovascular: Reports chest pain, Reports rapid heart beat, Reports shortness of breath Respiratory: Reports dyspnea Gastrointestinal: Denies abdominal pain, Denies diarrhea, Denies nausea, Denies vomiting Genitourinary: Denies dysuria, Denies hematuria Menstruation: Reports postmenopausal Musculoskeletal: Reports muscle cramps Integumentary: Denies pruritus, Denies rash Neurological: Denies numbness, Denies weakness Psychiatric: Denies anxiety, Denies depression Endocrine: Denies fatigue, Denies weight change Hematologic/Lymphatic: Reports thrombophilia Past Medical History Past Medical History: GERD/Reflux, Hyperlipidemia, Hypertension, Osteoarthritis (OA), Pulmonary Embolus (PE) Additional Past Medical History / Comment(s): chronic neck pain with bulging discs, DVT with PE in 2002 History of Any Multi-Drug Resistant Organisms: None Reported Past Surgical History: Cholecystectomy, Hernia Repair Additional Past Surgical History / Comment(s): hiatel hernia Past Anesthesia/Blood Transfusion Reactions: No Reported Reaction Additional Past Anesthesia/Blood Transfusion Reaction / Comm: dry heaves from anesthesia Past Psychological History: No Psychological Hx Reported Smoking Status: Never smoker Past Alcohol Use History: None Reported Past Drug Use History: None Reported - Past Family History Brother(s) Family Medical History: Cancer Additional Family Medical History / Comment(s): bone cancer. brain cancer Sister(s) History Unknown: Yes Family Medical History: Cancer Additional Family Medical History / Comment(s): skin cancer. colon cancer Father Family Medical History: Cancer Additional Family Medical History / Comment(s): prostate,lung and brain cancer Medications and Allergies Home Medications Medication Instructions Recorded Confirmed Type Lisinopril 40 mg PO HS 12/09/14 02/21/17 History Lovastatin [Mevacor] 20 mg PO HS 12/09/14 02/21/17 History Atenolol [Atenolol] 100 mg PO DAILY 12/10/14 02/21/17 History hydrALAZINE HCL 25 mg PO BID 06/11/15 02/22/17 History Budesonide-Formot 160-4.5 Mcg 2 puff INHALATION RT-BID 09/16/16 02/21/17 History [Symbicort 160-4.5 Mcg Inhaler] Levothyroxine Sodium [Synthroid] 100 mcg PO DAILY 09/17/16 02/21/17 History Cyclobenzaprine [Flexeril] 10 mg PO TID PRN 02/21/17 02/21/17 History Omeprazole 20 mg PO BID 02/21/17 02/22/17 History Allergies Allergy/AdvReac Type Severity Reaction Status Date / Time No Known Allergies Allergy Verified 02/21/17 20:13 Physical Exam Vitals: Vital Signs Temp Pulse Pulse Pulse Resp BP Pulse Ox 02/23/17 12:00 85 17 128/69 97 02/23/17 08:00 98.9 F 77 17 130/79 92 L 02/23/17 03:59 99.1 F 83 22 119/73 93 L 02/23/17 03:55 83 22 02/23/17 00:00 99.3 F 80 20 133/77 95 02/22/17 20:00 99.4 F 71 97 20 140/88 97 02/22/17 18:30 97.9 F 80 139/87 93 L Intake and Output 02/23/17 02/23/17 02/23/17 06:59 14:59 22:59 Intake Total 63 600 Balance 63 600 Intake: IV 63 Sodium Chloride 0.9% 1, 63 000 ml @ 70 mls/hr IV . [id number] [facility] Rx#:[id number] Oral 600 Other: Voiding Method Toilet # Voids 2 Weight 78.1 kg 78.1 kg Patient Weight 02/24/17 06:59 Weight 78.1 kg - Constitutional General appearance: no acute distress - EENT Eyes: EOMI, PERRLA ENT: hearing grossly normal, normal oropharynx - Neck Neck: no lymphadenopathy Thyroid: bilateral: normal size - Respiratory Respiratory: bilateral: CTA - Cardiovascular Rhythm: regular Heart sounds: normal: S1, S2 - Gastrointestinal General gastrointestinal: normal bowel sounds, soft - Integumentary Integumentary: normal - Neurologic Neurologic: CNII-XII intact - Musculoskeletal Musculoskeletal: strength equal bilaterally - Psychiatric Psychiatric: A&O x's 3, appropriate affect Results CBC & Chem 7: 02/23/17 06:14 02/23/17 06:14 Labs: Abnormal Lab Results - Last 24 Hours (Table) 02/22/17 02/23/17 02/23/17 Range/Units 22:47 06:14 06:14 RBC 3.78 L (3.80-5.40) m/uL Hgb 11.3 L (11.4-16.0) gm/dL Hct 33.1 L (34.0-46.0) % APTT 52.2 H (22.0-30.0) sec Chloride 111 H (98-107) mmol/L Glucose 111 H (74-99) mg/dL Calcium 8.3 L (8.4-10.2) mg/dL AST 80 H (14-36) U/L ALT 129 H (9-52) U/L Total Protein 5.6 L (6.3-8.2) g/dL Albumin 2.9 L (3.5-5.0) g/dL 02/23/17 Range/Units 06:14 RBC (3.80-5.40) m/uL Hgb (11.4-16.0) gm/dL Hct (34.0-46.0) % APTT 57.6 H (22.0-30.0) sec Chloride (98-107) mmol/L Glucose (74-99) mg/dL Calcium (8.4-10.2) mg/dL AST (14-36) U/L ALT (9-52) U/L Total Protein (6.3-8.2) g/dL Albumin (3.5-5.0) g/dL Chest x-ray: report reviewed CT scan - chest: report reviewed Venous US: report reviewed Assessment and Plan (1) Bilateral pulmonary embolism Narrative/Plan: 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 This episode appears to be unprovoked. The patient is currently improved with anticoagulation on IV heparin. For continued anticoagulation, the patient can be switched over to warfarin, or one of the newer direct factor inhibitors. However due to financial considerations, she wants to use warfarin. She denies any problems with warfarin when used previously. Based on her history, she will need lifelong anticoagulation. Given her family history, as well as personal history, there is possibility of for hypercoagulable state. I discussed that testing with her in detail. A positive or negative result testing would not affect her management whatsoever. It may however have implications for family members specifically if any are interested in testing and/or may be at increased risk. The patient has no children of her own but has several siblings. She states that she is not really interested in testing if it would not impact her management, but we'll talk to her family and let me know if she changes her mind. The patient is up-to-date with her age-appropriate cancer screening. She has no suspicious signs or symptoms to merit extended workup. Status: Acute
[2017-02-23] MEDS ORDERED: WARFARIN 7.5 MG TAB PO ONE (18:00)
[2017-02-23] MEDS: ATORVASTATIN 10 MG TAB PO SCH (20:50)
[2017-02-23] MEDS: LISINOPRIL 20 MG TAB PO SCH (20:50)
[2017-02-23] MEDS: HEPARIN SODIUM,PORCINE/D5W PMX 25,000 UNIT in DEXTROSE/WATER 1 500ML.BAG IV SCH (20:50)
--- NOTE | 2017-02-23 20:59 | PN ---
DATE OF SERVICE: 02/23/2017 CHIEF COMPLAINT: Pulmonary emboli. HISTORY OF PRESENT ILLNESS: This lady is doing fairly well. She has had no fever, chills, cough, hemoptysis, chest pain, etc. She is not particularly short of breath. PHYSICAL EXAMINATION: Breath sounds are heard on both sides. The chest is completely clear. Cardiac exam is normal. Abdomen is soft and nontender. IMPRESSION: 1. Multiple pulmonary emboli. 2. Hypertension. PLAN: Continue with heparin. Coumadin has been started. She cannot afford the novel anticoagulants. She will go home once her PT/INR is under good control.
[2017-02-24] MEDS: LEVOTHYROXINE 100 MCG TAB PO SCH (06:23)
[2017-02-24] MEDS: PANTOPRAZOLE 40 MG TABLET PO SCH (06:23)
[2017-02-24 06:54] LABS: Basophils % (A) 0 %; CH 29.3; CHCM 32.6; Eosinophils # (A) 0.2 k/uL (0-0.7); Eosinophils % (A) 3 %; HCT 35.7 % (34.0-46.0); HDW 2.28; HGB 11.6 gm/dL (11.4-16.0); Luc % (Auto) 2; Lymphocytes # (A) 1.4 k/uL (1.0-4.8); Lymphocytes % (A) 24 %; MCH 29.3 pg (25.0-35.0); MCHC 32.5 g/dL (31.0-37.0); MCV 90.2 fL (80.0-100.0); Mean Platelet Volume 7.6; Monocytes # (A) 0.3 k/uL (0-1.0); Monocytes % (A) 5 %; Neutrophils # (A) 3.7 k/uL (1.3-7.7); Neutrophils % (A) 65 %; RBC 3.96 m/uL (3.80-5.40); RDW 13.7 % (11.5-15.5); WBC 5.6 k/uL (3.8-10.6); WBC (Perox) 5.86
[2017-02-24 07:08] LABS: INR 1.6 (<1.1); Partial Thromboplastin Time 56.1 sec (22.0-30.0); Prothrombin Time 15.4 sec (9.0-12.0)
[2017-02-24 07:16] LABS: ALT 98 U/L (9-52); AST 50 U/L (14-36); Alkaline Phosphatase 135 U/L (38-126); Anion Gap 8 mmol/L; Blood Urea Nitrogen 11 mg/dL (7-17); Calcium 8.9 mg/dL (8.4-10.2); Carbon Dioxide 24 mmol/L (22-30); Chloride 111 mmol/L (98-107); Glucose 106 mg/dL (74-99); Non-African American GFR(MDRD) 56 (>60 ml/min/1.73 sqM); Potassium 4.2 mmol/L (3.5-5.1); Sodium 143 mmol/L (137-145); Total Bilirubin 0.2 mg/dL (0.2-1.3); Total Protein 5.7 g/dL (6.3-8.2)
[2017-02-24] MEDS: SODIUM CHLORIDE 0.9% 1,000 ML IV SCH ×2 (08:33→21:20)
[2017-02-24] MEDS: ATENOLOL 50 MG TAB PO SCH (08:34)
[2017-02-24] MEDS: hydrALAZINE HCL 25 MG TAB PO SCH ×2 (08:34→21:21)
[2017-02-24] MEDS: SYMBICORT 160-4.5 MCG INHALER INHALATION SCH ×2 (09:02→21:02)
--- NOTE | 2017-02-24 12:49 | P.PN ---
Subjective Principal diagnosis: PE This is a pleasant 61-year-old lady with a history of hypothyroidism, dyslipidemia, hypertension and COPD. She presented to the hospital with chest pain. She initially started with complaints of discomfort in her left leg. Patient underwent computed tomography scan of the chest due to an elevated d- dimer and was found to have large bilateral pulmonary embolism. She underwent echocardiogram that showed normal LV systolic function and no evidence of RV strain. On examination, patient denies any complaints of discomfort. She is breathing well. INR today 1.6. Objective - Vital Signs Vital signs: Vital Signs Temp 97.5 F L 02/24/17 11:50 Pulse 71 02/24/17 11:50 Resp 18 02/24/17 11:50 BP 142/86 02/24/17 11:50 Pulse Ox 95 02/24/17 11:50 Intake & Output 02/23/17 02/24/17 02/24/17 18:59 06:59 18:59 Intake Total 1710 1360 492.967 Balance 1710 1360 492.967 Weight 78.1 kg 79.379 kg Intake: IV 490 560 Sodium Chloride 0.9% 1, 490 560 000 ml @ 70 mls/hr IV . [id number] [facility] Rx#:[id number] Intake, IV Titration 500 255.967 Amount Heparin Sodium,Porcine/ 500 255.967 D5w Pmx 25,000 unit In Dextrose/Water 1 500ml. bag @ 18 UNITS/KG/HR 28. 21 mls/hr IV .[id number] [facility] Rx#:[id number] Oral 1220 300 237 Other: Voiding Method Toilet Toilet # Voids 1 1 - Exam PHYSICAL EXAMINATION: HEENT: Head is atraumatic, normocephalic. Pupils equal, round. Neck is supple. There is no elevated jugular venous pressure. HEART EXAMINATION: Heart sounds regular, S1 and S2 normal. No murmur or gallop heard. CHEST EXAMINATION: Lungs are clear to auscultation and precussion. No chest wall tenderness is noted on palpation or with deep breathing. ABDOMEN: Soft, nontender. Bowel sounds are heard. No organomegaly noted. EXTREMITIES: 2+ peripheral pulses with no evidence of peripheral edema and no calf tenderness noted. NEUROLOGIC patient is awake, alert and oriented x3. . - Labs CBC & Chem 7: 02/24/17 06:22 02/24/17 06:22 Labs: Abnormal Lab Results - Last 24 Hours (Table) 02/24/17 02/24/17 Range/Units 06:22 06:22 PT 15.4 H (9.0-12.0) sec APTT 56.1 H (22.0-30.0) sec Chloride 111 H (98-107) mmol/L Glucose 106 H (74-99) mg/dL AST 50 H (14-36) U/L ALT 98 H (9-52) U/L Alkaline Phosphatase 135 H (38-126) U/L Total Protein 5.7 L (6.3-8.2) g/dL Albumin 3.2 L (3.5-5.0) g/dL Assessment and Plan Plan: Assessment and plan #1 large bilateral pulmonary embolism #2 hypertension #3 dyslipidemia #4 hypothyroidism #5 COPD From cardiology's perspective, patient is hemodynamically stable with no evidence of RV strain. Continue IV heparin. She will receive Coumadin 5 mg tonight. Patient will need lifetime anticoagulation. We anticipate the patient 's INR to be repeated tomorrow likely be discharged with the next 24 hours. The above dictated assessment and findings were discussed with signing physician. The impression and plan of care have been directed as dictated. Sugey Sierra, Nurse Practitioner, acting as scribe for signing physician.
[2017-02-24] MEDS ORDERED: RX INFO: IV CONTRAST WAS GIVEN 1 EACH MISC MISCELLANE PRN (13:26)
[2017-02-24] MEDS ORDERED: IOHEXOL 350 MG/ML 25 ML BOTTLE (ORAL USE) PO PRN (13:26)
[2017-02-24 14:33] LABS: Hepatitis B Surface Ag Index 0.05
[2017-02-24 14:39] LABS: Hepatitis B Core IgM Index 0.01
[2017-02-24 14:51] LABS: Hepatitis C Virus IgG Ab Negative (Negative); Hepatitis C Virus IgG Index 0.02
--- NOTE | 2017-02-24 15:07 | CT ---
EXAMINATION TYPE: CT abdomen w con DATE OF EXAM: 02/24/2017 2:53 PM COMPARISON: 04/02/2014 HISTORY: Abnormal lab work. No complaints at time of scan CT DLP: 630.6 mGycm Automated exposure control for dose reduction was used. TECHNIQUE: Helical acquisition of images was performed from the lung bases through the top of iliac crest to include entire abdomen. CONTRAST: Performed with Oral Contrast and with IV Contrast, patient injected with 80 mL of Visipaque 320. FINDINGS: There is left pleural effusion. There is large hiatal hernia. There is some patchy atelectasis and in filtrate at the lung bases. This is worse on the left side. There is a 1 cm hypodensity in the posterior right lobe of the liver that could be a cyst or hemangio ma. There are clips from cholecystectomy. Bile ducts are not dilated. There is no pancreatic mass. Sp marissa appears normal. There is no adrenal mass. The kidneys show satisfactory contrast opacification. There is no hydroneph rosis. There is no retroperitoneal adenopathy. Ureters are not dilated. There is no ascites. I see no intestinal wall thickening. There are no dilated loops. I see no bony d estructive process. There is mild narrowing at L5-S1 disc space. There is no compression fracture. IMPRESSION: COMPARED TO THE LAST CT SCAN THERE IS NEW PLEURAL EFFUSIONS AND INFILTRATE AND ATELECTASIS AT THE EL G BASES. STABLE HIATAL HERNIA. STABLE HEPATIC CYST OR SMALL HEMANGIOMA. THERE IS PROBABLY A 2 CM STAB LE RIGHT OVARIAN CYST. There is new minimal subcutaneous edema around the lateral and posterior abdomen compared to old exam . This could relate to congestive heart failure.
--- NOTE | 2017-02-24 15:59 | PN ---
DATE OF SERVICE: 02/24/2017 She has some mild shortness of breath, but otherwise seems to be doing fair. She denies any chest pain at this time. On physical examination, her blood pressure is 134/84, respiratory rate of 18, pulse rate of 74, temperature 98.4, O2 sat on room air is 94%. HEENT is unremarkable. Chest is clear. Cardiovascular system reveals an S1 and S2. Abdomen is soft. There is no pedal edema. Labs were reviewed. IMPRESSION: 1. Acute bilateral pulmonary emboli. Continue IV heparin. 2. Optimize coagulopathy with warfarin. PT, INR today is 1.6. 3. Follow electrolytes, increase her activity level. Her prognosis at this time is guarded. She did have evidence of right ventricular strain consistent with acute cor pulmonale.
[2017-02-24] MEDS ORDERED: WARFARIN 5 MG TAB PO ONE (18:00)
[2017-02-24] MEDS: HEPARIN SODIUM,PORCINE/D5W PMX 25,000 UNIT in DEXTROSE/WATER 1 500ML.BAG IV SCH (21:19)
[2017-02-24] MEDS: LISINOPRIL 20 MG TAB PO SCH (21:22)
[2017-02-24] MEDS: ATORVASTATIN 10 MG TAB PO SCH (21:22)
--- NOTE | 2017-02-24 22:38 | PN ---
CHIEF COMPLAINT: Status post pulmonary embolism. HISTORY OF PRESENT ILLNESS: This lady is doing well and feeling good. However, her x-ray demonstrates a small left pleural effusion and liver function studies are elevated. She had no history of alcohol use or abuse, hepatitis, etc. PHYSICAL EXAMINATION: Color is good and chest is clear. CARDIAC: Normal. ABDOMEN: Soft, nontender. IMPRESSION: 1. Status post pulmonary emboli. 2. Left pleural effusion. 3. Elevated liver function studies. PLAN: 1. Continue with anticoagulation with Coumadin. Her INR is 1.8 and she will be given 10 mg a day. 2. Work up abnormal liver enzymes.
[2017-02-25 06:08] LABS: INR 2.9 (<1.1); Partial Thromboplastin Time 56.4 sec (22.0-30.0)
[2017-02-25 06:18] LABS: ALT 81 U/L (9-52); AST 49 U/L (14-36); Alkaline Phosphatase 140 U/L (38-126); Amylase 36 U/L (30-110); Anion Gap 8 mmol/L; Blood Urea Nitrogen 12 mg/dL (7-17); Calcium 8.8 mg/dL (8.4-10.2); Carbon Dioxide 22 mmol/L (22-30); Chloride 112 mmol/L (98-107); Glucose 105 mg/dL (74-99); Non-African American GFR(MDRD) >60 (>60 ml/min/1.73 sqM); Potassium 3.8 mmol/L (3.5-5.1); Sodium 142 mmol/L (137-145); Total Bilirubin 0.3 mg/dL (0.2-1.3); Total Protein 5.9 g/dL (6.3-8.2)
[2017-02-25] MEDS: PANTOPRAZOLE 40 MG TABLET PO SCH (06:44)
[2017-02-25] MEDS: LEVOTHYROXINE 100 MCG TAB PO SCH (06:44)
[2017-02-25] MEDS: hydrALAZINE HCL 25 MG TAB PO SCH (07:40)
[2017-02-25] MEDS: ATENOLOL 50 MG TAB PO SCH (07:41)
[2017-02-25] MEDS: SYMBICORT 160-4.5 MCG INHALER INHALATION SCH (09:42)
[2017-02-25] MEDS ORDERED: ACETAMINOPHEN TAB 325 MG TAB ONE (10:27)
--- NOTE | 2017-02-25 10:36 | PN ---
This is a 61-year-old lady who was admitted to hospital with bilateral large pulmonary embolism and is currently on heparin and Coumadin. Her INR today is 2.9. We will stop the intravenous heparin at this time. She received a dose of 5 mg of Coumadin yesterday and will receive a 2.5 today and will have an INR done through my office on Sunday. She is free of symptoms. Eager to go home. On exam, comfortable at rest. Vital signs are stable. There is no jugular venous distention. Chest exam reveals good air entry bilaterally. Heart exam reveals first and second heart sounds. No gallop. No murmur. ABDOMEN: Soft. Exam of extremities did not reveal edema. Peripheral pulses are felt. Labs show that the INR is 2.9. Potassium is 3.8. Creatinine is 0.9. ASSESSMENT: Acute bilateral pulmonary embolism. PLAN: Stop the IV heparin, ambulate her. Hopefully home later this afternoon on 2.5 mg of Coumadin with an INR through my office early next week.
[2017-02-25 12:07] VITALS: BP 137/81; PULSE 78; RESP 16; TEMP 97.9
[2017-02-25] MEDS ORDERED: WARFARIN 2.5 MG TAB PO ONE (18:00)
--- NOTE | 2017-02-25 18:57 | PN ---
DATE OF SERVICE: 02/25/2017. She was seen again on 02/25/2017. She does not have any chest pain or shortness of breath. On physical examination, her vitals are stable. She is afebrile her chest is clear. Cardiovascular system reveals S1 and S2. No S3. No S4. ABDOMEN: Soft. There is no edema. PT, INR is therapeutic at 2.9. IMPRESSION: Bilateral pulmonary embolism, agree with discharge planning on Coumadin. She would require lifelong anticoagulation.
--- NOTE | 2017-02-28 06:21 | DS ---
DATE OF ADMISSION: 02/21/2017 DATE OF DISCHARGE: 02/25/2017 CHIEF COMPLAINT: Left calf pain and shortness of breath. HISTORY OF PRESENT ILLNESS AND PHYSICAL EXAM: Details of this lady's history and physical can be found in the initial workup. LABORATORY STUDIES: While she was in the hospital she had laboratory studies, the details of which can be found in the laboratory section of her chart. COURSE IN THE HOSPITAL: After admission, she was placed on bed rest and started on intravenous fluids and heparin. She remained fairly hemodynamically stable and did improve. She was seen by Pulmonology and Hematology and it was determined that due to cost factors, she would be treated with Coumadin and she started and anticoagulated while she was on heparin. Her INR venita to above 2 and it was felt that she could go home. She will follow up in a few days in the office and she will be contacted by the director medicare sales. FINAL DIAGNOSES: 1. Bilateral pulmonary emboli. 2. Hypertension. OPERATIONS: None. CONSULTATIONS: Pulmonology and Hematology. She is improved.
== END 2017-02-25 12:22 | disposition home or self-care (01) | DRG 175 ==
LOC: EC 19:04 → 6ICU 22:37 → 6SEL 02-22 17:51
PROVIDERS: ADMIT Family Medicine; ATTEND Family Medicine
DX: I26.09 Other pulmonary embolism with acute cor pulmonale (principal); J96.01 Acute respiratory failure with hypoxia; J90 Pleural effusion, not elsewhere classified; I10 Essential (primary) hypertension; E78.5 Hyperlipidemia, unspecified; E66.9 Obesity, unspecified; Z68.30 Body mass index [BMI] 30.0-30.9, adult; G89.29 Other chronic pain; M54.2 Cervicalgia; J44.9 Chronic obstructive pulmonary disease, unspecified; E03.9 Hypothyroidism, unspecified; M19.91 Primary osteoarthritis, unspecified site; Z86.718 Personal history of other venous thrombosis and embolism; Z86.711 Personal history of pulmonary embolism; Z90.49 Acquired absence of other specified parts of digestive tract; K21.9 Gastro-esophageal reflux disease without esophagitis; Z79.51 Long term (current) use of inhaled steroids; Z79.899 Other long term (current) drug therapy
CPT/HCPCS: 36415; 71010; 71020; 71275; 74160; 80048; 80053; 80074; 82150; 82550; 82553; 83690; 83735; 84100; 84484; 85025; 85379; 85610; 85730; 86301; 93005; 93306; 93970; 96361; 96365; 96375; 96376; 99285

== ENCOUNTER → 2017-04-02 | Outpatient (CLI) | payer OTHER ==
--- NOTE | 2017-04-02 15:58 | US ---
EXAMINATION TYPE: US venous doppler duplex LE RT DATE OF EXAM: 04/02/2017 3:36 PM COMPARISON: NONE CLINICAL HISTORY: 61-year-old female Pain in rt lower limb M79.661. PE diagnosed this year and patie nt stated is on Coumadin; c/o right posterior calf pain x 2 days. SIDE PERFORMED: Right TECHNIQUE: The lower extremity deep venous system is examined utilizing real time linear array sonog иван with graded compression, doppler sonography and color-flow sonography. FINDINGS: VESSELS IMAGED: Common Femoral Vein Deep Femoral Vein Greater Saphenous Vein * Femoral Vein Popliteal Vein Small Saphenous Vein * Proximal Calf Veins Posterior Tibial Vein pair (* superficial vessels) Right Leg: Negative for DVT IMPRESSION: No evidence for DVT within the right lower extremity.
== END | disposition home or self-care (01) ==
LOC: RADUSWWP 14:34
PROVIDERS: ATTEND Family Medicine
DX: M79.661 Pain in right lower leg (principal)

== ENCOUNTER 2017-09-15 19:01 | Observation (INO) | payer OTHER ==
[2017-09-15] MEDS ORDERED: SODIUM CHLORIDE 0.9% 500 ML IV STA (19:29)
--- NOTE | 2017-09-15 19:36 | ED ---
General Adult HPI - General Chief complaint: Chest Pain Stated complaint: heart burning, shaky, vertigo, low pulse high bp Time Seen by Provider: 09/15/17 19:01 Source: patient, RN notes reviewed Mode of arrival: wheelchair Limitations: no limitations - History of Present Illness Initial comments: This is a 62-year-old female with past medical history significant for high blood pressure. Patient comes in today stating that she woke up this morning and a little later on had a little bit of the shakes and then had a slight headache later in the day she experienced this short episode of vertigo her headache got worse but she did go to the [employer] [facility]. After the [employer] [facility] then she started having some lower sternal pain and when all the way down into her suprapubic region and that pain in her abdomen slightly still exists. she wasn't feeling well and she was shaking so she went and saw her son and then she took a nap and ate dinner thought maybe it would feel better. Patient denies nausea vomiting. Patient denies palpitations. Patient denies any shortness of breath or difficulty breathing. Patient has any fever chills. Patient denies any numbness or weakness. Patient's discomfort in the lower sternum down through her abdomen started at 2:00 this afternoon. - Related Data Home Medications Medication Instructions Recorded Confirmed Lisinopril 40 mg PO HS 12/09/14 09/15/17 Lovastatin [Mevacor] 20 mg PO HS 12/09/14 09/15/17 hydrALAZINE HCL 25 mg PO TID 06/11/15 09/15/17 Budesonide-Formot 160-4.5 Mcg 2 puff INHALATION RT-BID PRN 09/16/16 09/15/17 [Symbicort 160-4.5 Mcg Inhaler] Levothyroxine Sodium [Synthroid] 100 mcg PO DAILY 09/17/16 09/15/17 Cyclobenzaprine [Flexeril] 10 mg PO TID PRN 02/21/17 09/15/17 Omeprazole 20 mg PO BID 02/21/17 09/15/17 Ergocalciferol (Vitamin D2) 50,000 unit PO Q30D 09/15/17 09/15/17 [Vitamin D2] Metoprolol Tartrate [Lopressor] 50 mg PO BID 09/15/17 09/15/17 Warfarin Sodium [Coumadin] 4 mg PO DAILY 09/15/17 09/15/17 Warfarin [Coumadin] 5 mg PO ONCE 09/15/17 09/15/17 Allergies Allergy/AdvReac Type Severity Reaction Status Date / Time No Known Allergies Allergy Verified 09/15/17 20:01 Review of Systems ROS Statement: Those systems with pertinent positive or pertinent negative responses have been documented in the HPI. ROS Other: All systems not noted in ROS Statement are negative. Past Medical History Past Medical History: GERD/Reflux, Hyperlipidemia, Hypertension, Osteoarthritis (OA), Pulmonary Embolus (PE) Additional Past Medical History / Comment(s): chronic neck pain with bulging discs, DVT with PE in 2002 History of Any Multi-Drug Resistant Organisms: None Reported Past Surgical History: Cholecystectomy, Hernia Repair Additional Past Surgical History / Comment(s): hiatel hernia Past Anesthesia/Blood Transfusion Reactions: No Reported Reaction Additional Past Anesthesia/Blood Transfusion Reaction / Comment(s): dry heaves from anesthesia Past Psychological History: No Psychological Hx Reported Smoking Status: Never smoker Past Alcohol Use History: None Reported Past Drug Use History: None Reported - Past Family History Brother(s) Family Medical History: Cancer Additional Family Medical History / Comment(s): bone cancer. brain cancer Sister(s) History Unknown: Yes Family Medical History: Cancer Additional Family Medical History / Comment(s): skin cancer. colon cancer Father Family Medical History: Cancer Additional Family Medical History / Comment(s): prostate,lung and brain cancer General Exam - General Exam Comments Initial Comments: GENERAL: Patient is well-developed and well-nourished. Patient is nontoxic and well- hydrated and is in no acute distress. ENT: Neck is soft and supple. No significant lymphadenopathy is noted. Oropharynx is clear. Moist mucous membranes. Neck has full range of motion without eliciting any pain. EYES: The sclera were anicteric and conjunctiva were pink and moist. Extraocular movements were intact and pupils were equal round and reactive to light. Eyelids were unremarkable. PULMONARY: Unlabored respirations. Good breath sounds bilaterally. No audible rales rhonchi or wheezing was noted. CARDIOVASCULAR: There is a regular rate and rhythm without any murmurs gallops or rubs. ABDOMEN: Soft and nontender with normal bowel sounds. No palpable organomegaly was noted. There is no palpable pulsatile mass. SKIN: Skin is clear with no lesions or rashes and otherwise unremarkable. NEUROLOGIC: Patient is alert and oriented x3. Cranial nerves II through XII are grossly intact. Motor and sensory are also intact. Normal speech, volume and content. Symmetrical smile. MUSCULOSKELETAL: Normal extremities with adequate strength and full range of motion. No lower extremity swelling or edema. No calf tenderness. LYMPHATICS: No significant lymphadenopathy is noted PSYCHIATRIC: Normal psychiatric evaluation. Limitations: no limitations Course Vital Signs 09/15/17 09/15/17 19:03 19:48 Temperature 98.8 F Pulse Rate 68 Respiratory 16 Rate Blood Pressure 180/81 135/75 O2 Sat by Pulse 95 99 Oximetry Medical Decision Making - Medical Decision Making EKG shows normal sinus rhythm at 71 bpm AK interval is 134 QRS is 72 QT interval 384 QTC is 417. Patient's EKG shows no ST segment elevation or depression or T wave abnormalities are noted. Patient's chest x-ray showed no acute abnormality. Patient continued to have some burning sensation now in her chest psychiatric GI cocktail. Because of the Sunday of symptoms and the continued chest pain and decided to admit the patient and observe her overnight. I spoke with Dr. Sandoval's nurse practitioner and she agreed to accept the patient wrote admitting orders. - Lab Data Result diagrams: 09/15/17 19:37 09/15/17 19:37 Lab Results 09/15/17 09/15/17 09/15/17 Range/Units 19:37 19:37 19:37 WBC 8.6 (3.8-10.6) k/uL RBC 4.78 (3.80-5.40) m/uL Hgb 13.8 (11.4-16.0) gm/dL Hct 42.0 (34.0-46.0) % MCV 87.8 (80.0-100.0) fL MCH 28.8 (25.0-35.0) pg MCHC 32.8 (31.0-37.0) g/dL RDW 13.7 (11.5-15.5) % Plt Count 241 (150-450) k/uL Neutrophils % 78 % Lymphocytes % 16 % Monocytes % 3 % Eosinophils % 1 % Basophils % 0 % Neutrophils # 6.7 (1.3-7.7) k/uL Lymphocytes # 1.4 (1.0-4.8) k/uL Monocytes # 0.3 (0-1.0) k/uL Eosinophils # 0.1 (0-0.7) k/uL Basophils # 0.0 (0-0.2) k/uL PT (9.0-12.0) sec INR (<1.2) APTT (22.0-30.0) sec Sodium 143 (137-145) mmol/L Potassium 4.1 (3.5-5.1) mmol/L Chloride 109 H (98-107) mmol/L Carbon Dioxide 24 (22-30) mmol/L Anion Gap 10 mmol/L BUN 16 (7-17) mg/dL Creatinine 1.31 H (0.52-1.04) mg/dL Est GFR (MDRD) Af Amer 50 (>60 ml/min/1.73 sqM) Est GFR (MDRD) Non-Af 41 (>60 ml/min/1.73 sqM) Glucose 126 H (74-99) mg/dL Calcium 10.1 (8.4-10.2) mg/dL Magnesium 2.0 (1.6-2.3) mg/dL Total Bilirubin 0.4 (0.2-1.3) mg/dL AST 37 H (14-36) U/L ALT 41 (9-52) U/L Alkaline Phosphatase 61 (38-126) U/L Total Creatine Kinase 193 H (30-135) U/L CK-MB (CK-2) 0.5 (0.0-2.4) ng/mL CK-MB (CK-2) Rel Index 0.3 Troponin I <0.012 (0.000-0.034) ng/mL Total Protein 7.4 (6.3-8.2) g/dL Albumin 4.3 (3.5-5.0) g/dL Urine Color Urine Appearance (Clear) Urine pH (5.0-8.0) Ur Specific [place] (1.001-1.035) Urine Protein (Negative) Urine Glucose (UA) (Negative) Urine Ketones (Negative) Urine Blood (Negative) Urine Nitrite (Negative) Urine Bilirubin (Negative) Urine Urobilinogen (<2.0) mg/dL Ur Leukocyte Esterase (Negative) 12/23/17 12/23/17 Range/Units 19:37 19:37 WBC (3.8-10.6) k/uL RBC (3.80-5.40) m/uL Hgb (11.4-16.0) gm/dL Hct (34.0-46.0) % MCV (80.0-100.0) fL MCH (25.0-35.0) pg MCHC (31.0-37.0) g/dL RDW (11.5-15.5) % Plt Count (150-450) k/uL Neutrophils % % Lymphocytes % % Monocytes % % Eosinophils % % Basophils % % Neutrophils # (1.3-7.7) k/uL Lymphocytes # (1.0-4.8) k/uL Monocytes # (0-1.0) k/uL Eosinophils # (0-0.7) k/uL Basophils # (0-0.2) k/uL PT 61.4 H (9.0-12.0) sec INR 6.7 H* (<1.2) APTT 40.5 H (22.0-30.0) sec Sodium (137-145) mmol/L Potassium (3.5-5.1) mmol/L Chloride (98-107) mmol/L Carbon Dioxide (22-30) mmol/L Anion Gap mmol/L BUN (7-17) mg/dL Creatinine (0.52-1.04) mg/dL Est GFR (MDRD) Af Amer (>60 ml/min/1.73 sqM) Est GFR (MDRD) Non-Af (>60 ml/min/1.73 sqM) Glucose (74-99) mg/dL Calcium (8.4-10.2) mg/dL Magnesium (1.6-2.3) mg/dL Total Bilirubin (0.2-1.3) mg/dL AST (14-36) U/L ALT (9-52) U/L Alkaline Phosphatase (38-126) U/L Total Creatine Kinase (30-135) U/L CK-MB (CK-2) (0.0-2.4) ng/mL CK-MB (CK-2) Rel Index Troponin I (0.000-0.034) ng/mL Total Protein (6.3-8.2) g/dL Albumin (3.5-5.0) g/dL Urine Color Light Yellow Urine Appearance Clear (Clear) Urine pH 7.0 (5.0-8.0) Ur Specific [place] 1.005 (1.001-1.035) Urine Protein Negative (Negative) Urine Glucose (UA) Negative (Negative) Urine Ketones Negative (Negative) Urine Blood Negative (Negative) Urine Nitrite Negative (Negative) Urine Bilirubin Negative (Negative) Urine Urobilinogen <2.0 (<2.0) mg/dL Ur Leukocyte Esterase Negative (Negative) Disposition Clinical Impression: Chest pain, Abdominal pain Disposition: ADMITTED IP TO THIS HOSP Referrals: Dino Ruiz MD [Primary Care Provider] - 1-2 days Time of Disposition: 21:00
[2017-09-15] MEDS ORDERED: hydrALAZINE HCL 20 MG/ML 1 ML VIAL IVP STA (19:37)
[2017-09-15 19:54] LABS: Basophils % (A) 0 %; Eosinophils # (A) 0.1 k/uL (0-0.7); Eosinophils % (A) 1 %; HGB 13.8 gm/dL (11.4-16.0); Lymphocytes # (A) 1.4 k/uL (1.0-4.8); Lymphocytes % (A) 16 %; MCH 28.8 pg (25.0-35.0); MCHC 32.8 g/dL (31.0-37.0); MCV 87.8 fL (80.0-100.0); Mean Platelet Volume 7.8; Monocytes # (A) 0.3 k/uL (0-1.0); Monocytes % (A) 3 %; Neutrophils # (A) 6.7 k/uL (1.3-7.7); Neutrophils % (A) 78 %; Platelet Count 241 k/uL (150-450); RBC 4.78 m/uL (3.80-5.40); RDW 13.7 % (11.5-15.5); WBC 8.6 k/uL (3.8-10.6)
[2017-09-15 19:55] LABS: Appearance,Urine Clear (Clear); Bilirubin,Urine Negative (Negative); Blood,Urine Negative (Negative); Color,Urine Light Yellow; Glucose,Urine (UA) Negative (Negative); Ketones,Urine Negative (Negative); Leukocyte Esterase,Urine Negative (Negative); Nitrite,Urine Negative (Negative); Protein,Urine Negative (Negative); Specific Gravity,Urine 1.005 (1.001-1.035); Urobilinogen,Urine <2.0 mg/dL (<2.0)
[2017-09-15 20:16] LABS: Creatine Kinase 193 U/L (30-135)
--- NOTE | 2017-09-15 20:19 | XR ---
EXAMINATION TYPE: XR chest 2V DATE OF EXAM: 09/15/2017 COMPARISON: September 24, 2016 HISTORY: Dizziness with hypertension. TECHNIQUE: Frontal and lateral views of the chest are obtained. FINDINGS: There is no focal air space opacity, pleural effusion, or pneumothorax seen. The cardiac silhouette size is within normal limits. The osseous structures are intact. IMPRESSION: No acute cardiopulmonary process.
[2017-09-15 20:29] LABS: Albumin 4.3 g/dL (3.5-5.0); Calcium 10.1 mg/dL (8.4-10.2); Potassium 4.1 mmol/L (3.5-5.1); Total Bilirubin 0.4 mg/dL (0.2-1.3); Total Protein 7.4 g/dL (6.3-8.2)
[2017-09-15 20:30] LABS: Creatine Kinase MB 0.5 ng/mL (0.0-2.4); Troponin I <0.012 ng/mL (0.000-0.034)
[2017-09-15 20:50] LABS: Partial Thromboplastin Time 40.5 sec (22.0-30.0); Prothrombin Time 61.4 sec (9.0-12.0)
[2017-09-15 20:53] LABS: INR 6.7 (<1.2)
[2017-09-15] MEDS ORDERED: MAG HYDROX/AL HYDROX/SIMETH 30 ML, HYOSCYAMINE ELIXIR 10 ML, CIMETIDINE HCL 300 MG, LID... PO STA ×4 (21:00)
[2017-09-15] MEDS ORDERED: ASPIRIN 81 MG PO STA (21:01)
[2017-09-15] MEDS ORDERED: NITROGLYCERIN SL TABS 0.4 MG TAB SUBLINGUAL PRN (21:01)
[2017-09-15 22:57] VITALS: BMI 31.1
[2017-09-15] MEDS ORDERED: CYCLOBENZAPRINE 10 MG TAB PO PRN (23:25)
[2017-09-15] MEDS ORDERED: ATORVASTATIN 10 MG TAB PO SCH (23:30)
[2017-09-16] MEDS: METOPROLOL TARTRATE 50 MG TAB PO SCH ×2 (00:02→08:33)
[2017-09-16] MEDS: PANTOPRAZOLE 40 MG TABLET PO SCH ×2 (00:02→08:33)
[2017-09-16] MEDS: hydrALAZINE HCL 25 MG TAB PO SCH ×2 (00:03→08:33)
[2017-09-16] MEDS: NITROGLYCERIN OINT 1 INCH/GM PACKET TOPICAL SCH ×2 (00:04→06:05)
[2017-09-16 03:20] LABS: Cholesterol 139 mg/dL (<200); HDL Cholesterol 38 mg/dL (40-60); LDL Cholesterol,Calculated 73 mg/dL (0-99); Triglycerides 139 mg/dL (<150)
[2017-09-16 03:21] LABS: Creatine Kinase 151 U/L (30-135)
[2017-09-16 03:34] LABS: Creatine Kinase MB 0.5 ng/mL (0.0-2.4); Troponin I <0.012 ng/mL (0.000-0.034)
[2017-09-16 08:25] LABS: Basophils % (A) 0 %; Eosinophils # (A) 0.1 k/uL (0-0.7); Eosinophils % (A) 1 %; HCT 37.6 % (34.0-46.0); HGB 12.1 gm/dL (11.4-16.0); Lymphocytes # (A) 1.3 k/uL (1.0-4.8); Lymphocytes % (A) 29 %; MCH 28.4 pg (25.0-35.0); MCHC 32.1 g/dL (31.0-37.0); MCV 88.5 fL (80.0-100.0); Monocytes # (A) 0.3 k/uL (0-1.0); Monocytes % (A) 6 %; Neutrophils # (A) 2.8 k/uL (1.3-7.7); Neutrophils % (A) 62 %; Platelet Count 201 k/uL (150-450); RBC 4.25 m/uL (3.80-5.40); RDW 13.8 % (11.5-15.5); WBC 4.5 k/uL (3.8-10.6)
[2017-09-16] MEDS ORDERED: ASPIRIN 325 MG TAB PO SCH (09:00)
[2017-09-16] MEDS ORDERED: LEVOTHYROXINE 100 MCG TAB PO SCH (09:00)
[2017-09-16] MEDS ORDERED: FAMOTIDINE 20 MG/2 ML VIAL IV SCH (09:00)
[2017-09-16 09:02] LABS: Calcium 9.2 mg/dL (8.4-10.2); Potassium 4.4 mmol/L (3.5-5.1)
[2017-09-16 09:08] LABS: Creatine Kinase 129 U/L (30-135)
[2017-09-16 09:21] LABS: Creatine Kinase MB 0.4 ng/mL (0.0-2.4); Troponin I <0.012 ng/mL (0.000-0.034)
[2017-09-16] MEDS ORDERED: PHYTONADIONE ORAL 5 MG/5 ML ORAL.SYRG PO STA (09:49)
[2017-09-16 10:05] LABS: Prothrombin Time 62.6 sec (9.0-12.0)
[2017-09-16 10:06] LABS: INR 6.8 (<1.2)
--- NOTE | 2017-09-16 11:00 | US ---
EXAMINATION TYPE: US abdomen complete DATE OF EXAM: 09/16/2017 COMPARISON: Previous study dated 09/16/2016. CLINICAL HISTORY: abd pain and tenderness. Epigastric pain EXAM MEASUREMENTS: Liver Length: 11.5 cm Gallbladder Wall: Surgically absent cm CBD: 0.3 cm Spleen: 9.6 cm Right Kidney: 8.6 x 4.3 x 3.7 cm Left Kidney: 10.4 x 4.9 x 5.8 cm Pancreas: not well visualized due to midline bowel gas Liver: small cyst measures 0.8 x 1.0 x 1.0 cm Gallbladder: Surgically absent CBD: wnl Spleen: wnl Right Kidney: atrophied as compared to left Left Kidney: No hydronephrosis or masses seen Upper IVC: wnl Abd Aorta: wnl The pancreas is poorly visualized. The liver is normal in size. There is a small, 1 cm cyst in the right lobe of the liver. This was not visualized previously. The gallbladder is been removed. The distal common hepatic duct measures 3 mm. The spleen is normal in size. The right kidney is smaller than the left. The kidneys otherwise appear normal. Visualized portions of aorta and IVC are normal. IMPRESSION: 1. SMALL HEPATIC CYST. 2. STATUS POST CHOLECYSTECTOMY. 3. I COULD NOT EXCLUDE SOME RIGHT RENAL ATROPHY.
--- NOTE | 2017-09-16 11:02 | US ---
EXAMINATION TYPE: US pelvic complete DATE OF EXAM: 09/16/2017 COMPARISON: Previous study dated 03/17/2015. CLINICAL HISTORY: pain. Epigastric pain, history of ovarian cyst TECHNIQUE: Transabdominal (TA) Date of LMP: 5 years ago EXAM MEASUREMENTS: Uterus: 7.2 x 4.5 x 5.2 cm Endometrial Stripe: 0.9 cm Right Ovary: 2.9 x 2.2 x 2.8 cm Left Ovary: not visualized cm 1. Uterus: Anteverted echogenic mass fundal left measures 1.5 x 1.6 x 1.6 cm, probable fibroid 2. Endometrium: thickened for post menopausal, no HRT. 3. Right Ovary: cyst measures 2.4 x 1.9 x 2.3 cm 4. Left Ovary: not visualized 5. Bilateral Adnexa: wnl 6. Posterior cul-de-sac: no free fluid IMPRESSION: 1. FIBROID UTERUS. 2. SIMPLE APPEARING RIGHT OVARIAN CYST.
[2017-09-16 11:11] VITALS: RESP 18
--- NOTE | 2017-09-16 13:32 | ECHOF ---
Referral Reason:lv function MEASUREMENTS -------- HEIGHT: 157.5 cm WEIGHT: 79.4 kg BP: 109/88 RVIDd: 2.7 cm (< 3.3) IVSd: 1.0 cm (0.6 - 1.1) LVIDd: 4.1 cm (3.9 - 5.3) LVPWd: 1.1 cm (0.6 - 1.1) IVSs: 1.4 cm LVIDs: 2.9 cm LVPWs: 1.6 cm LA Diam: 3.3 cm (2.7 - 3.8) LAESV Index (A-L): 30.41 ml/m Ao Diam: 2.5 cm (2.0 - 3.7) AV Cusp: 1.8 cm (1.5 - 2.6) MV EXCURSION: 17.310 mm (> 18.000) MV EF SLOPE: 109 mm/s (70 - 150) EPSS: 0.2 cm MV E Pedro: 1.07 m/s MV DecT: 203 ms MV A Pedro: 0.62 m/s MV E/A Ratio: 1.74 RAP: 5.00 mmHg RVSP: 29.61 mmHg FINDINGS -------- Sinus rhythm. This was a technically good study. The left ventricular size is normal. There is borderline concentric left ventricular hypertrophy. Overall left ventricular systolic function is normal with, an EF between 55 - 60 %. The right ventricle is normal in size. LA is midly dilated 29-33ml/m2. The right atrium is normal in size. The aortic valve is trileaflet and appears structurally normal. Mild mitral regurgitation is present. Mild tricuspid regurgitation present. Right ventricular systolic pressure is normal at < 35 mmHg. Trace/mild (physiologic) pulmonic regurgitation. The aortic root size is normal. The inferior vena cava is mildly dilated. There is no pericardial effusion. CONCLUSIONS -------- 1. Sinus rhythm. 2. This was a technically good study. 3. The left ventricular size is normal. 4. There is borderline concentric left ventricular hypertrophy. 5. Overall left ventricular systolic function is normal with, an EF between 55 - 60 %. 6. The right ventricle is normal in size. 7. LA is midly dilated 29-33ml/m2. 8. The right atrium is normal in size. 9. The aortic valve is trileaflet and appears structurally normal. 10. Mild mitral regurgitation is present. 11. Mild tricuspid regurgitation present. 12. Right ventricular systolic pressure is normal at < 35 mmHg. 13. Trace/mild (physiologic) pulmonic regurgitation. 14. The aortic root size is normal. 15. The inferior vena cava is mildly dilated. 16. There is no pericardial effusion. [employer] OFFBEARER: Renee Manzo RDCS
[2017-09-16] MEDS ORDERED: SYMBICORT 160-4.5 MCG INHALER INHALATION PRN (14:21)
[2017-09-16 14:39] VITALS: BP 114/52; PULSE 61; TEMP 97
--- NOTE | 2017-09-16 18:22 | CONS ---
CONSULTATION This is a 62-year-old lady with a diagnosis of a history of DVT, pulmonary embolism in the past, hypertension, hypothyroidism, who came into the hospital with episode of epigastric discomfort starting from the xiphoid cartilage down to her suprapubic area. First, she had symptoms of vertigo, dizziness, and then she started having pain in the lower chest and abdomen and came in with these symptoms. Symptoms seems to have improved somewhat but she still has tenderness in the abdomen. She is resting comfortably. She takes Coumadin and was advised by her primary care physician Dr. Ruiz to cut down the dose, but she did not go and get a new prescription. Instead continued to take higher dose of Coumadin and INR is more than 6.0 at this time. She is resting comfortably at the time of my evaluation. Denies any chest discomfort. Her presentation seems to be more of an abdominal pain than a chest pain. She is asymptomatic from a cardiac standpoint at this time. Her EKGs are normal troponins are unremarkable. Her repeat INR today was also 6.8, and I am going to reverse her anticoagulation. Creatinine is 1.41. PAST MEDICAL HISTORY: 1. History of DVT and pulmonary embolism. 2. Hypertension. 3. History of hypothyroidism on replacement therapy. MEDICATIONS: At home include Coumadin, Mevacor, Lopressor 50 mg b.i.d., hydralazine 25 mg t.i.d., Synthroid 100 mcg daily, and omeprazole 20 mg daily. ALLERGIES: None. REVIEW OF SYSTEMS: Unremarkable other than mentioned facts. EXAMINATION: Blood pressure is 110/70, pulse rate is 60 per minute regular. HEENT unremarkable. Fundus was not examined by me. NECK: Supple. There is no JVD. I do not hear a carotid bruit. Heart exam reveals S1, S2 heard normally. No significant rub, murmur or gallop. Lungs are clear. ABDOMEN: Soft. There is tenderness in the left upper quadrant area as well as some tenderness in the epigastric area. Lower extremities reveal palpable pulses. No edema. Central nervous system is normal. EKG revealed a sinus mechanism with nonspecific ST abnormality. LABORATORY DATA: Suggests the INR is 6.7. Renal function is abnormal with a creatinine of 1.4. Troponins are normal. IMPRESSION: 1. This patient does not have any chest discomfort to suggest angina. 2. Abdominal discomfort with some tenderness, rule out any diverticulitis type picture. 3. Hypercoagulability secondary to Coumadin and she was advised to cut down, but continued to take higher dose of Coumadin. 4. History of deep venous thrombosis and pulmonary embolism. 5. Hyperlipidemia. 6. Hypertension. RECOMMENDATIONS: I am recommending that we reverse the Coumadin with 10 mg of vitamin K, no further intervention necessary from a cardiac standpoint at this time. Outpatient stress testing can be performed. I am recommending ultrasound of the abdomen and pelvis as well. I discussed my thoughts in detail with the patient. MMODL / IJN: [id number] /
[2017-09-16] MEDS ORDERED: LISINOPRIL 20 MG TAB PO SCH (21:00)
--- NOTE | 2017-09-18 11:47 | HP ---
HISTORY AND PHYSICAL CHIEF COMPLAINT: Chest pain and abdominal pain. HISTORY OF PRESENT ILLNESS: This is another admission for this 62-year-old, white female. She has a history of DVT and pulmonary emboli as well as hypertension. She developed a slight headache with vertigo and then felt somewhat tremulous and came to the emergency room with chest pain as well as some epigastric pain. REVIEW OF SYSTEMS: She has had no shortness of breath, palpitations, diaphoresis, abdominal pain, vomiting, diarrhea, etc. Past medical history, family history, personal and social histories are all otherwise unremarkable and unchanged can be found in her med rec. She does not smoke or drink and she has fairly well controlled hypertension. She has had no hemoptysis or chest pain. Her INR was elevated. PHYSICAL EXAM: Blood pressure is 132/82 with a pulse of 78, respirations 30 and she is afebrile. In general, she appeared to be well developed, well nourished, in no acute distress. Skin color is normal. Skin is warm, dry. Lymph nodes are not enlarged. Head, ears, eyes, nose, mouth, and throat were normal. Neck veins were not distended. Thyroid is not enlarged. Chest is clear. Cardiac exam is normal sinus rhythm and there are no murmurs or extra sounds. Abdomen is soft, nontender without visceromegaly or masses. Extremities are normal. Neurologically, she is intact. She is admitted to the hospital with diagnoses: 1. Chest pain. 2. Abdominal pain. 3. Hypertension. 4. History of pulmonary embolism. PLAN: 1. Bed rest. 2. IV fluids. 3. Telemetry. 4. Serial EKGs and enzymes. MMODL / IJN: [id number] /
--- NOTE | 2017-09-18 19:39 | DS ---
DISCHARGE SUMMARY CHIEF COMPLAINT: Chest pain. HISTORY OF PRESENT ILLNESS AND PHYSICAL EXAM: Details of this lady's history and physical can be found in the initial workup. LABORATORY STUDIES: While she was in the hospital she had laboratory studies, details of which can be found in the laboratory section of her chart. COURSE IN THE HOSPITAL: After admission, she was placed in bedrest, started on intravenous fluids and she did well. She had no complications or problems. Studies were negative and she was anxious to be discharged. She will be sent home on her usual activity, diet and medication and she will be seen in the office in several days. FINAL DIAGNOSES: 1. Chest pain, noncardiac. 2. Abdominal pain. OPERATIONS: None. MMODL / IJN: [id number] /
--- NOTE | 2017-09-22 11:33 | DS ---
DISCHARGE SUMMARY DATE OF ADMISSION: 09/15/2017. DATE OF DISCHARGE: 09/16/2017 CHIEF COMPLAINT: Chest pain. HISTORY OF PRESENT ILLNESS AND PHYSICAL EXAM: Details of this lady's history and physical can be found in the initial workup. LABORATORY STUDIES: While she was in a hospital she had laboratory studies, details of which can be found in the laboratory section of her chart and which included an elevated INR above 6. COURSE IN HOSPITAL: After admission, she was placed on bedrest, started on intravenous fluids and serial EKGs and enzymes were normal and all other studies were considered normal. She was doing well and it was felt that she could go home on the and she will go home on her usual diet, activity and be on no anticoagulant. She will follow up in the office in several days. FINAL DIAGNOSES: 1. Chest pain, noncardiac. 2. Iatrogenic hyperprothrombinemia. 3. Hypertension. 4. Previous history of pulmonary embolism. OPERATIONS: None. CONSULTATIONS: None. She is improved. MMODL / IJN: [id number] /
== END 2017-09-16 15:52 | disposition home or self-care (01) ==
LOC: EC 19:01 → 6SEL 21:13
PROVIDERS: ADMIT Family Medicine; ATTEND Family Medicine
DX: R07.89 Other chest pain (principal); D68.59 Other primary thrombophilia; T45.515A Adverse effect of anticoagulants, initial encounter; Z91.14 Patient's other noncompliance with medication regimen; Z86.711 Personal history of pulmonary embolism; R10.13 Epigastric pain; E03.9 Hypothyroidism, unspecified; I10 Essential (primary) hypertension; K21.9 Gastro-esophageal reflux disease without esophagitis; E78.5 Hyperlipidemia, unspecified; M19.90 Unspecified osteoarthritis, unspecified site; M54.2 Cervicalgia; G89.29 Other chronic pain; Z79.01 Long term (current) use of anticoagulants; Z79.51 Long term (current) use of inhaled steroids; Z79.899 Other long term (current) drug therapy; Z86.718 Personal history of other venous thrombosis and embolism
CPT/HCPCS: 99285 ×2; 96361 ×3; 96374; 36415; 94760; 93005; 93306; 80061; 80053; 80048; 82550 ×2; 82553 ×2; 83735; 84484 ×2; 85025 ×2; 85610 ×2; 85730; 81003; 71020; 76700; 76856; G0378 ×2

== ENCOUNTER → 2017-11-14 | Outpatient (CLI) | payer BC ==
--- NOTE | 2017-11-14 16:53 | CT ---
EXAMINATION TYPE: CT angio chest DATE OF EXAM: 11/14/2017 COMPARISON: 02/21/2017 HISTORY: 62-year-old female right lower pain. History of PE. Shortness of breath. TECHNIQUE: Contiguous axial scanning of the chest performed with IV Contrast, patient injected with 7 0 mL of Omnipaque 350. Coronal/sagittal MIP reconstructions performed. CT DLP: 273.3 mGycm Automated exposure control for dose reduction was used. FINDINGS: The heart is upper limits of normal in size without pericardial effusion. Minimal LAD calcifications are seen. Aorta normal caliber with bovine configuration to the aortic arch. No thoracic lymphadenopathy by CT size criteria. Satisfactory opacification of the pulmonary arterial system with interval clearance of previous pulmo nary emboli Mild diffuse bronchial wall thickening mild dependent atelectasis. No consolidation or pleural effusi on. 6 mm and 7 mm nodularity at the medial right apex probably represents pleural parenchymal scarrin g and appears a little more defined as compared to 02/21/2017. No consolidation or pleural effusion. T here is some patchy opacity at inferior lingula. A moderate-sized hernia with some post surgical changes at the diaphragmatic hiatus. Visualized upper abdomen shows stable 1 cm hypodensity posterior right liver lobe, probable cyst. Cho lecystectomy clips. Bones: No osseous destructive process. IMPRESSION: 1. INTERVAL CLEARANCE OF THE PREVIOUS PULMONARY EMBOLI. NO NEW PULMONARY EMBOLUS. 2. Mild diffuse bronchial wall thickening suggests bronchitis or chronic asthma. 3. Small amount of patchy atelectasis or infiltrate at the inferior lingula. Correlate for any infect ious signs or symptoms. 4. 6 mm and 7 mm nodularity in the medial right apex likely represents pleural parenchymal scarring b ut is slightly more full as compared to 02/21/2017. Consider a one-year follow-up to reassess. 5. A moderate size hiatal hernia is redemonstrated. There is some surgical material at the diaphragma tic hiatus. Query possible breakdown of a previous fundoplication. Consider arranging for follow-up w ith the patient's surgeon especially if any GI symptoms are present.
--- NOTE | 2017-11-14 17:10 | US ---
EXAMINATION TYPE: US venous doppler duplex LE RT DATE OF EXAM: 11/14/2017 4:58 PM COMPARISON: 04/02/2017 CLINICAL HISTORY: 62-year-old female R06.02 shortness of breath, Pain in Rt lower M79.6. Right leg pa in x 3 days, history of PE and right leg DVT, patient off blood thinners since August 2017 SIDE PERFORMED: Right TECHNIQUE: The lower extremity deep venous system is examined utilizing real time linear array sonog иван with graded compression, doppler sonography and color-flow sonography. FINDINGS: VESSELS IMAGED: External Iliac Vein (EIV) Common Femoral Vein Deep Femoral Vein Greater Saphenous Vein * Femoral Vein Popliteal Vein Small Saphenous Vein * Proximal Calf Veins (* superficial vessels) Right Leg: Appears negative for DVT IMPRESSION: No evidence for DVT within the right lower extremity imaged from the groin to the upper calf.
== END | disposition home or self-care (01) ==
LOC: RADCTMAIN 16:07
PROVIDERS: ATTEND Family Medicine
DX: R91.8 Other nonspecific abnormal finding of lung field (principal); K44.9 Diaphragmatic hernia without obstruction or gangrene; M79.661 Pain in right lower leg; R07.9 Chest pain, unspecified; Z86.711 Personal history of pulmonary embolism
CPT/HCPCS: 93971; 71275; Q9967

== ENCOUNTER → 2018-10-01 | Outpatient (CLI) | payer BC ==
--- NOTE | 2018-10-05 08:52 | MM ---
Reason for exam: screening (asymptomatic). Last mammogram was performed 1 year and 1 month ago. History: Patient is postmenopausal, has history of bilateral breast cancer, and is nulliparous. MG 3D Screening Mammo W/Cad Bilateral CC and MLO view(s) were taken. Prior study comparison: September 10, 2017, bilateral MG 3d screening mammo w/cad. February 14, 2016, bilateral MG 3d screening mammo w/cad. The breast tissue is heterogeneously dense. This may lower the sensitivity of mammography. Chronic nodulary bilateral. No discrete abnormality. ASSESSMENT: Benign, BI-RAD 2 RECOMMENDATION: Routine screening mammogram of both breasts in 1 year.
== END | disposition home or self-care (01) ==
LOC: RADMAMWWP 06:54
PROVIDERS: ATTEND Family Medicine
DX: Z12.31 Encounter for screening mammogram for malignant neoplasm of breast (principal)
CPT/HCPCS: 77063; 77067

== ENCOUNTER 2019-10-24 22:03 | Emergency (ER) | payer BC, MEDICARE ==
[2019-10-24 22:12] VITALS: TEMP 97.9
--- NOTE | 2019-10-24 23:03 | US ---
EXAMINATION TYPE: US venous doppler duplex LE RT DATE OF EXAM: 10/24/2019 10:54 PM COMPARISON: NONE CLINICAL HISTORY: calf pain. right calf pain, history of PE and DVT SIDE PERFORMED: right TECHNIQUE: The lower extremity deep venous system is examined utilizing real time linear array sonog иван with graded compression, doppler sonography and color-flow sonography. VESSELS IMAGED: External Iliac Vein (EIV) Common Femoral Vein Deep Femoral Vein Greater Saphenous Vein * Femoral Vein Popliteal Vein Small Saphenous Vein * Proximal Calf Veins (* superficial vessels) Right Leg: No evidence of DVT IMPRESSION: No evidence of deep venous thrombosis in the right leg.
--- NOTE | 2019-10-24 23:19 | ED ---
General Adult HPI - General Chief complaint: Extremity Problem,Nontraumatic Stated complaint: R Leg Pain Time Seen by Provider: 10/24/19 22:16 Source: patient, RN notes reviewed, old records reviewed Mode of arrival: ambulatory Limitations: no limitations - History of Present Illness Initial comments: 64-year-old female patient past history significant for pulmonary embolism, DVT not currently anticoagulated due to get discontinuation by her physician presented to the ED complaining of calf pain for 2 days. Denies any chest pain or shortness of breath. Does report that she is active around the house, however denies any injury. Concern for possible recurrence of DVT. Systemic: Pt denies fatigue, fever/chills, rash. Pt denies weakness, night swea ts, weight loss. Neuro: Pt denies headache, visual disturbances, syncope or pre-syncope. HEENT: Pt denies ocular discharge or irritation, otalgia, rhinorrhea, pharyngitis or notable lymphadenopathy. Cardiopulmonary: Pt denies chest pain, SOB, heart palpitations, dyspnea on exertion. Abdominal/GI: Pt denies abdominal pain, n/v/d. : Pt denies dysuria, burning w/ urination, frequency/urgency. Denies new onset urinary or bowel incontinence. MSK: Pt denies myalgia, loss of strength or function in extremities. Neuro: Pt denies new onset weakness, paresthesias. - Related Data Home Medications Medication Instructions Recorded Confirmed Lisinopril 40 mg PO HS 12/09/14 09/15/17 Lovastatin [Mevacor] 20 mg PO HS 12/09/14 09/15/17 hydrALAZINE HCL 25 mg PO TID 06/11/15 09/15/17 Budesonide-Formot 160-4.5 Mcg 2 puff INHALATION RT-BID PRN 09/16/16 09/15/17 [Symbicort 160-4.5 Mcg Inhaler] Levothyroxine Sodium [Synthroid] 100 mcg PO DAILY 09/17/16 09/15/17 Cyclobenzaprine [Flexeril] 10 mg PO TID PRN 02/21/17 09/15/17 Omeprazole 20 mg PO BID 02/21/17 09/15/17 Ergocalciferol (Vitamin D2) 50,000 unit PO Q30D 12/23/17 12/23/17 [Vitamin D2] Metoprolol Tartrate [Lopressor] 50 mg PO BID 09/15/17 09/15/17 Warfarin [Coumadin] 5 mg PO ONCE 09/15/17 09/15/17 Allergies Allergy/AdvReac Type Severity Reaction Status Date / Time No Known Allergies Allergy Verified 10/24/19 22:12 Review of Systems ROS Statement: Those systems with pertinent positive or pertinent negative responses have been documented in the HPI. ROS Other: All systems not noted in ROS Statement are negative. Past Medical History Past Medical History: Deep Vein Thrombosis (DVT), GERD/Reflux, Hyperlipidemia, Hypertension, Osteoarthritis (OA), Pulmonary Embolus (PE) Additional Past Medical History / Comment(s): chronic neck pain with bulging discs, DVT with PE in 2002; upper hiatal hernia repaired 2003 History of Any Multi-Drug Resistant Organisms: None Reported Past Surgical History: Cholecystectomy, Hernia Repair Additional Past Surgical History / Comment(s): hiatel hernia Past Anesthesia/Blood Transfusion Reactions: No Reported Reaction Additional Past Anesthesia/Blood Transfusion Reaction / Comment(s): dry heaves from anesthesia Past Psychological History: No Psychological Hx Reported Smoking Status: Never smoker Past Alcohol Use History: None Reported Past Drug Use History: None Reported - Past Family History Brother(s) Family Medical History: Cancer Additional Family Medical History / Comment(s): bone cancer. brain cancer Sister(s) History Unknown: Yes Family Medical History: Cancer Additional Family Medical History / Comment(s): skin cancer. colon cancer Father Family Medical History: Cancer Additional Family Medical History / Comment(s): prostate,lung and brain cancer General Exam - General Exam Comments Initial Comments: Constitutional: NAD, AOX3, Pt has pleasant affect. HEENT: NC/AT, trachea midline, neck supple, no lymphadenopathy. Posterior pharynx non erythematous, without exudates. External ears appear normal, without discharge. Mucous membranes moist. Eyes PERRLA, EOM intact. There is no scleral icterus. No pallor noted. Cardiopulmonary: RRR, no murmurs, rubs or gallops, no JVD noted. Lungs CTAB in anterior and posterior galeana. No peripheral edema. Abdominal exam: Abdomen soft and non-distended. Abdomen non-tender to palpation in all 4 quadrants. Bowel sounds active in LLQ. No hepatosplenomegaly. No ecchym osis Neuro: CN II-XII grossly intact. No nuchal rigidity. No raccon eyes, no urbano sign, no hemotympanum. No cervical spinal tenderness. MSK: Posterior calf tenderness positive. Left posterior calf tenderness negative. No unilateral leg swelling or skin changes noted. Right Homans sign is positive, left Homans sign is negative. Posterior tibialis and radial pulse +2 bilaterally. Sensation intact in upper and lower extremities. Full active ROM in upper and lower extremities, 5/5 stregnth. Limitations: no limitations Course Vital Signs 10/24/19 22:09 Temperature 97.9 F Pulse Rate 64 Respiratory 22 Rate Blood Pressure 160/93 O2 Sat by Pulse 96 Oximetry Medical Decision Making - Medical Decision Making 64-year-old female patient past history significant for pulmonary embolism, DVT not currently anticoagulated due to get discontinuation by her physician presented to the ED complaining of calf pain for 2 days. Denies any chest pain or shortness of breath. Does report that she is active around the house, however denies any injury. Concern for possible recurrence of DVT. Patient was under stable, afebrile. Physical exam displayed: Posterior calf tenderness positive. Left posterior calf tenderness negative. No unilateral leg swelling or skin changes noted. Right Homans sign is positive, left Homans sign is negative. Ultrasound is fully no evidence of DVT. Patient likely strained to musculoskeletal strain. Patient will discharge to follow up with primary care provider will return to ER if condition worsens. Case discussed with Dr. Farnco. Disposition Clinical Impression: Myalgia, Calf pain Disposition: HOME SELF-CARE Condition: Stable Instructions (If sedation given, give patient instructions): Musculoskeletal Pain (ED) Additional Instructions: 64-year-old female patient past history significant for pulmonary embolism, DVT not currently anticoagulated due to get discontinuation by her physician presented to the ED complaining of calf pain for 2 days. Denies any chest pain or shortness of breath. Does report that she is active around the house, however denies any injury. Concern for possible recurrence of DVT. Patient was under stable, afebrile. Physical exam displayed: Right Posterior calf ten derness positive. Left posterior calf tenderness negative. No unilateral leg swelling or skin changes noted. Right Homans sign is positive, left Homans sign is negative. Ultrasound is fully no evidence of DVT. Patient likely experiencing musculoskeletal strain. Patient will discharge to follow up with primary care provider will return to ER if condition worsens. Case discussed with Dr. Franco. Is patient prescribed a controlled substance at d/c from ED?: No Referrals: Dino Ruiz MD [Primary Care Provider] - 1-2 days
--- NOTE | 2019-10-24 23:27 | ED ---
Disposition Clinical Impression: Myalgia, Calf pain Disposition: HOME SELF-CARE Condition: Stable Instructions (If sedation given, give patient instructions): Musculoskeletal Pain (ED) Additional Instructions: Follow-up with primary care provider tomorrow, return to ER if condition worsens in any way. Is patient prescribed a controlled substance at d/c from ED?: No Referrals: Dino Ruiz MD [Primary Care Provider] - 1-2 days
[2019-10-24 23:45] VITALS: BP 149/100; PULSE 69; RESP 18
== END 2019-10-24 23:45 | disposition home or self-care (01) ==
LOC: EC 22:03
DX: M79.18 Myalgia, other site (principal); K21.9 Gastro-esophageal reflux disease without esophagitis; E78.5 Hyperlipidemia, unspecified; I10 Essential (primary) hypertension; Z79.01 Long term (current) use of anticoagulants; Z79.890 Hormone replacement therapy; Z79.899 Other long term (current) drug therapy; Z86.711 Personal history of pulmonary embolism; Z86.718 Personal history of other venous thrombosis and embolism; Z87.39 Personal history of other diseases of the musculoskeletal system and connective tissue
CPT/HCPCS: 99284

== ENCOUNTER → 2019-11-04 | Outpatient (CLI) | payer MEDICARE ==
--- NOTE | 2019-11-04 10:33 | MM ---
Reason for exam: screening (asymptomatic). Last mammogram was performed 1 year and 1 month ago. History: Patient is postmenopausal and is nulliparous. Physical Findings: A clinical breast exam by your physician is recommended on an annual basis and results should be correlated with mammographic findings. MG 3D Screening Mammo W/Cad Bilateral CC and MLO view(s) were taken. Prior study comparison: October 01, 2018, bilateral MG 3d screening mammo w/cad. September 10, 2017, bilateral MG 3d screening mammo w/cad. The breast tissue is heterogeneously dense. This may lower the sensitivity of mammography. There is no discrete abnormality. No significant changes when compared with prior studies. ASSESSMENT: Negative, BI-RAD 1 RECOMMENDATION: Routine screening mammogram of both breasts in 1 year.
== END | disposition home or self-care (01) ==
LOC: RADMAMWWP 07:08
PROVIDERS: ATTEND Family Medicine
DX: Z12.31 Encounter for screening mammogram for malignant neoplasm of breast (principal)
CPT/HCPCS: 77063; 77067

== ENCOUNTER 2020-04-02 20:29 | Observation (INO) | payer MEDICARE ==
[2020-04-02] MEDS ORDERED: SODIUM CHLORIDE 0.9% 1,000 ML IV STA (21:23)
--- NOTE | 2020-04-02 21:25 | ED ---
Neuro HPI - General Chief Complaint: Neuro Symptoms/Deficit Stated Complaint: LT side pain/tingling Time Seen by Provider: 04/02/20 20:47 Source: patient, RN notes reviewed, old records reviewed Mode of arrival: wheelchair Limitations: no limitations - History of Present Illness Is the patient presenting with stroke symptoms?: No -: hour(s) Initial Comments: This is a 64-year-old female with history of high blood pressure also having carpal tunnel with left arm pain related his left arm does not feel well no weakness which is states are feels off. No chest pain she admits to shortness of breath which she states that she always has. Patient is at high blood pressure has been taking her blood pressure with no abnormalities. Otherwise no new complaints patient symptoms been going on for about 8 hours with no change Location: left arm (Weakness and feels like it's falling asleep) History of same: No Place: home Severity: mild Quality: constant Improves With: none Worsens With: none On Anticoagulants: No Context: sudden onset Associated Symptoms: denies other symptoms Treatments Prior to Arrival: none - Related Data Home Medications: Home Medications Medication Instructions Recorded Confirmed Lovastatin [Mevacor] 20 mg PO HS 12/09/14 04/02/20 hydrALAZINE HCL 25 mg PO TID 06/11/15 04/02/20 Budesonide-Formot 160-4.5 Mcg 2 puff INHALATION RT-DAILY PRN 09/16/16 04/02/20 [Symbicort 160-4.5 Mcg Inhaler] Levothyroxine Sodium [Synthroid] 100 mcg PO DAILY 09/17/16 04/02/20 Cyclobenzaprine [Flexeril] 10 mg PO TID PRN 02/21/17 04/02/20 Omeprazole 20 mg PO BID 02/21/17 04/02/20 Ergocalciferol (Vitamin D2) 50,000 unit PO Q30D 09/15/17 04/02/20 [Vitamin D2] Metoprolol Tartrate [Lopressor] 50 mg PO DAILY 09/15/17 04/02/20 Latanoprost [Xalatan 0.005%] 1 drop BOTH EYES HS 04/02/20 04/02/20 Losartan Potassium [Cozaar] 100 mg PO DAILY 04/02/20 04/02/20 Sucralfate [Carafate] 1 tab PO QID 04/02/20 04/02/20 Allergies/Adverse Reactions: Allergies Allergy/AdvReac Type Severity Reaction Status Date / Time No Known Allergies Allergy Verified 04/02/20 21:19 Review of Systems ROS Statement: Those systems with pertinent positive or pertinent negative responses have been documented in the HPI. ROS Other: All systems not noted in ROS Statement are negative. General Exam Limitations: no limitations General appearance: alert, in no apparent distress Head exam: Present: atraumatic, normocephalic, normal inspection Eye exam: Present: normal appearance, PERRL, EOMI. Absent: scleral icterus, conjunctival injection, periorbital swelling ENT exam: Present: normal exam, mucous membranes moist Neck exam: Present: normal inspection. Absent: tenderness, meningismus, lymphadenopathy Respiratory exam: Present: normal lung sounds bilaterally. Absent: respiratory distress, wheezes, rales, rhonchi, stridor Cardiovascular Exam: Present: regular rate, normal rhythm, normal heart sounds. Absent: systolic murmur, diastolic murmur, rubs, gallop, clicks GI/Abdominal exam: Present: soft, normal bowel sounds. Absent: distended, tenderness, guarding, rebound, rigid Extremities exam: Present: normal inspection, full ROM, normal capillary refill. Absent: tenderness, pedal edema, joint swelling, calf tenderness Back exam: Present: normal inspection Neurological exam: Present: alert, oriented X3, CN II-XII intact Psychiatric exam: Present: normal affect, normal mood Skin exam: Present: warm, dry, intact, normal color. Absent: rash Stroke MDM - Lab Data Result diagrams: 04/02/20 21:25 04/02/20 21:24 Lab Results 04/02/20 04/02/20 04/02/20 Range/Units 21:24 21:24 21:24 WBC (3.8-10.6) k/uL RBC (3.80-5.40) m/uL Hgb (11.4-16.0) gm/dL Hct (34.0-46.0) % MCV (80.0-100.0) fL MCH (25.0-35.0) pg MCHC (31.0-37.0) g/dL RDW (11.5-15.5) % Plt Count (150-450) k/uL Neutrophils % % Lymphocytes % % Monocytes % % Eosinophils % % Basophils % % Neutrophils # (1.3-7.7) k/uL Lymphocytes # (1.0-4.8) k/uL Monocytes # (0-1.0) k/uL Eosinophils # (0-0.7) k/uL Basophils # (0-0.2) k/uL PT (9.0-12.0) sec INR (<1.2) APTT (22.0-30.0) sec Sodium 138 (137-145) mmol/L Potassium 4.1 (3.5-5.1) mmol/L Chloride 108 H (98-107) mmol/L Carbon Dioxide 23 (22-30) mmol/L Anion Gap 7 mmol/L BUN 18 H (7-17) mg/dL Creatinine 1.13 H (0.52-1.04) mg/dL Est GFR (CKD-EPI)AfAm 59 (>60 ml/min/1.73 sqM) Est GFR (CKD-EPI)NonAf 51 (>60 ml/min/1.73 sqM) Glucose 98 (74-99) mg/dL Plasma Lactic Acid Sukh 0.7 (0.7-2.0) mmol/L Calcium 9.2 (8.4-10.2) mg/dL Phosphorus 3.3 (2.5-4.5) mg/dL Magnesium 1.9 (1.6-2.3) mg/dL Total Bilirubin 0.6 (0.2-1.3) mg/dL AST 26 (14-36) U/L ALT 17 (4-34) U/L Alkaline Phosphatase 47 (38-126) U/L Creatine Kinase 109 (30-135) U/L Troponin I <0.012 (0.000-0.034) ng/mL NT-Pro-B Natriuret Pep pg/mL Total Protein 6.1 L (6.3-8.2) g/dL Albumin 3.6 (3.5-5.0) g/dL Urine Color Urine Appearance (Clear) Urine pH (5.0-8.0) Ur Specific [place] (1.001-1.035) Urine Protein (Negative) Urine Glucose (UA) (Negative) Urine Ketones (Negative) Urine Blood (Negative) Urine Nitrite (Negative) Urine Bilirubin (Negative) Urine Urobilinogen (<2.0) mg/dL Ur Leukocyte Esterase (Negative) 04/02/20 04/02/20 04/02/20 Range/Units 21:24 21:25 21:25 WBC 6.2 (3.8-10.6) k/uL RBC 4.24 (3.80-5.40) m/uL Hgb 12.2 (11.4-16.0) gm/dL Hct 37.5 (34.0-46.0) % MCV 88.5 (80.0-100.0) fL MCH 28.9 (25.0-35.0) pg MCHC 32.7 (31.0-37.0) g/dL RDW 13.9 (11.5-15.5) % Plt Count 198 (150-450) k/uL Neutrophils % 63 % Lymphocytes % 25 % Monocytes % 7 % Eosinophils % 2 % Basophils % 0 % Neutrophils # 3.9 (1.3-7.7) k/uL Lymphocytes # 1.5 (1.0-4.8) k/uL Monocytes # 0.5 (0-1.0) k/uL Eosinophils # 0.1 (0-0.7) k/uL Basophils # 0.0 (0-0.2) k/uL PT 10.1 (9.0-12.0) sec INR 1.0 (<1.2) APTT 21.2 L (22.0-30.0) sec Sodium (137-145) mmol/L Potassium (3.5-5.1) mmol/L Chloride (98-107) mmol/L Carbon Dioxide (22-30) mmol/L Anion Gap mmol/L BUN (7-17) mg/dL Creatinine (0.52-1.04) mg/dL Est GFR (CKD-EPI)AfAm (>60 ml/min/1.73 sqM) Est GFR (CKD-EPI)NonAf (>60 ml/min/1.73 sqM) Glucose (74-99) mg/dL Plasma Lactic Acid Sukh (0.7-2.0) mmol/L Calcium (8.4-10.2) mg/dL Phosphorus (2.5-4.5) mg/dL Magnesium (1.6-2.3) mg/dL Total Bilirubin (0.2-1.3) mg/dL AST (14-36) U/L ALT (4-34) U/L Alkaline Phosphatase (38-126) U/L Creatine Kinase (30-135) U/L Troponin I (0.000-0.034) ng/mL NT-Pro-B Natriuret Pep 348 pg/mL Total Protein (6.3-8.2) g/dL Albumin (3.5-5.0) g/dL Urine Color Urine Appearance (Clear) Urine pH (5.0-8.0) Ur Specific [place] (1.001-1.035) Urine Protein (Negative) Urine Glucose (UA) (Negative) Urine Ketones (Negative) Urine Blood (Negative) Urine Nitrite (Negative) Urine Bilirubin (Negative) Urine Urobilinogen (<2.0) mg/dL Ur Leukocyte Esterase (Negative) 04/02/20 Range/Units 22:54 WBC (3.8-10.6) k/uL RBC (3.80-5.40) m/uL Hgb (11.4-16.0) gm/dL Hct (34.0-46.0) % MCV (80.0-100.0) fL MCH (25.0-35.0) pg MCHC (31.0-37.0) g/dL RDW (11.5-15.5) % Plt Count (150-450) k/uL Neutrophils % % Lymphocytes % % Monocytes % % Eosinophils % % Basophils % % Neutrophils # (1.3-7.7) k/uL Lymphocytes # (1.0-4.8) k/uL Monocytes # (0-1.0) k/uL Eosinophils # (0-0.7) k/uL Basophils # (0-0.2) k/uL PT (9.0-12.0) sec INR (<1.2) APTT (22.0-30.0) sec Sodium (137-145) mmol/L Potassium (3.5-5.1) mmol/L Chloride (98-107) mmol/L Carbon Dioxide (22-30) mmol/L Anion Gap mmol/L BUN (7-17) mg/dL Creatinine (0.52-1.04) mg/dL Est GFR (CKD-EPI)AfAm (>60 ml/min/1.73 sqM) Est GFR (CKD-EPI)NonAf (>60 ml/min/1.73 sqM) Glucose (74-99) mg/dL Plasma Lactic Acid Sukh (0.7-2.0) mmol/L Calcium (8.4-10.2) mg/dL Phosphorus (2.5-4.5) mg/dL Magnesium (1.6-2.3) mg/dL Total Bilirubin (0.2-1.3) mg/dL AST (14-36) U/L ALT (4-34) U/L Alkaline Phosphatase (38-126) U/L Creatine Kinase (30-135) U/L Troponin I (0.000-0.034) ng/mL NT-Pro-B Natriuret Pep pg/mL Total Protein (6.3-8.2) g/dL Albumin (3.5-5.0) g/dL Urine Color Colorless Urine Appearance Clear (Clear) Urine pH 5.5 (5.0-8.0) Ur Specific [place] 1.003 (1.001-1.035) Urine Protein Negative (Negative) Urine Glucose (UA) Negative (Negative) Urine Ketones Negative (Negative) Urine Blood Negative (Negative) Urine Nitrite Negative (Negative) Urine Bilirubin Negative (Negative) Urine Urobilinogen <2.0 (<2.0) mg/dL Ur Leukocyte Esterase Negative (Negative) - NIH Stroke Scale 1a. Level of Consciousness: (0) alert 1b. LOC Questions: (0) answers correctly (ENT positive) 1c. LOC Commands: (0) performs tasks correctly 2. Best Gaze: (0) normal 3. Visual: (0) no visual loss 4. Facial Palsy: (0) normal symmetrical movement 5a. Motor Arm Left: (0) no drift 5b. Motor Arm Right: (0) no drift 6a. Motor Leg Left: (0) no drift 6b. Motor Leg Right: (0) no drift 7. Limb Ataxia: (0) absent 8. Sensory: (0) normal 9. Best Language: (0) no aphasia 10. Dysarthria: (0) normal 11. Extinction/Inattention: (0) no abnormality - Thrombolytic Inclusion/Exclusion Thrombolytic Exclusion Criteria: Symptom Onset > 4.5 Hours - Radiology Data Radiology results: report reviewed (CT brain is negative for acute disease chest x-rays negative for acute disease), image reviewed Past Medical History Past Medical History: Deep Vein Thrombosis (DVT), GERD/Reflux, Hyperlipidemia, Hypertension, Osteoarthritis (OA), Pulmonary Embolus (PE) Additional Past Medical History / Comment(s): chronic neck pain with bulging discs, DVT with PE in 2002; upper hiatal hernia repaired 2003 History of Any Multi-Drug Resistant Organisms: None Reported Past Surgical History: Cholecystectomy, Hernia Repair Additional Past Surgical History / Comment(s): hiatel hernia Past Anesthesia/Blood Transfusion Reactions: No Reported Reaction Additional Past Anesthesia/Blood Transfusion Reaction / Comment(s): dry heaves from anesthesia Past Psychological History: No Psychological Hx Reported Smoking Status: Never smoker Past Alcohol Use History: Rare Past Drug Use History: None Reported - Past Family History Brother(s) Family Medical History: Cancer Additional Family Medical History / Comment(s): bone cancer. brain cancer Sister(s) History Unknown: Yes Family Medical History: Cancer Additional Family Medical History / Comment(s): skin cancer. colon cancer Father Family Medical History: Cancer Additional Family Medical History / Comment(s): prostate,lung and brain cancer Course Vital Signs 04/02/20 20:38 Temperature 98.6 F Pulse Rate 62 Respiratory 16 Rate Blood Pressure 125/82 O2 Sat by Pulse 97 Oximetry - Reevaluation(s) Reevaluation #1: 04/02/20 23:19 Medical records reviewed Reevaluation #2: 04/02/20 23:19 Patient still with chest pain or more so left arm pain and hand pain - Consultations Consultation #1: Spoke with Dr. Curry and agrees to admit this patient Disposition Clinical Impression: Chest pain, Atypical chest pain Disposition: ADMITTED IP TO THIS [facility] Condition: Undetermined Is patient prescribed a controlled substance at d/c from ED?: No Referrals: Dino Ruiz MD [Primary Care Provider] - 1-2 days
[2020-04-02 21:34] LABS: Basophils % (A) 0 %; Eosinophils # (A) 0.1 k/uL (0-0.7); Eosinophils % (A) 2 %; HCT 37.5 % (34.0-46.0); HGB 12.2 gm/dL (11.4-16.0); Lymphocytes # (A) 1.5 k/uL (1.0-4.8); Lymphocytes % (A) 25 %; MCH 28.9 pg (25.0-35.0); MCHC 32.7 g/dL (31.0-37.0); MCV 88.5 fL (80.0-100.0); Mean Platelet Volume 8.7; Monocytes # (A) 0.5 k/uL (0-1.0); Monocytes % (A) 7 %; Neutrophils # (A) 3.9 k/uL (1.3-7.7); Neutrophils % (A) 63 %; Platelet Count 198 k/uL (150-450); RBC 4.24 m/uL (3.80-5.40); RDW 13.9 % (11.5-15.5); WBC 6.2 k/uL (3.8-10.6)
[2020-04-02 21:53] LABS: Albumin 3.6 g/dL (3.5-5.0); Calcium 9.2 mg/dL (8.4-10.2); Magnesium 1.9 mg/dL (1.6-2.3); Phosphorus 3.3 mg/dL (2.5-4.5); Potassium 4.1 mmol/L (3.5-5.1); Total Bilirubin 0.6 mg/dL (0.2-1.3); Total Protein 6.1 g/dL (6.3-8.2)
[2020-04-02 21:56] LABS: Prothrombin Time 10.1 sec (9.0-12.0)
[2020-04-02 22:01] LABS: Partial Thromboplastin Time 21.2 sec (22.0-30.0)
--- NOTE | 2020-04-02 22:02 | CT ---
EXAMINATION TYPE: CT brain wo con DATE OF EXAM: 04/02/2020 COMPARISON: Prior CT 12/09/2014 HISTORY: weakness CT DLP: 1072.4 mGycm Automated exposure control for dose reduction was used. Head CT performed using departmental article. FINDINGS: There is no interval change. There is no hemorrhage or hydrocephalus. The orbits show symmetric appea kvng. Brain density is maintained. Midline structures are unremarkable. IMPRESSION: NO ACUTE ABNORMALITY. FOLLOW-UP INDICATED.
--- NOTE | 2020-04-02 22:04 | XR ---
EXAMINATION TYPE: XR chest 2V DATE OF EXAM: 04/02/2020 COMPARISON: Prior chest x-ray dated 09/15/2017 HISTORY: Weakness TECHNIQUE: Frontal and lateral views of the chest are obtained. FINDINGS: Patient is rotated. There is no focal air space opacity, pleural effusion, or pneumothorax seen. The cardiac silhouette size is stable, retrocardiac density is consistent with hiatal hernia. The osseous structures are intact. IMPRESSION: No acute cardiopulmonary process.
[2020-04-02 23:05] LABS: Appearance,Urine Clear (Clear); Bilirubin,Urine Negative (Negative); Blood,Urine Negative (Negative); Color,Urine Colorless; Glucose,Urine (UA) Negative (Negative); Ketones,Urine Negative (Negative); Leukocyte Esterase,Urine Negative (Negative); Nitrite,Urine Negative (Negative); PH, Urine 5.5 (5.0-8.0); Protein,Urine Negative (Negative); Specific Gravity,Urine 1.003 (1.001-1.035); Urobilinogen,Urine <2.0 mg/dL (<2.0)
[2020-04-02] MEDS ORDERED: MORPHINE SULFATE 4 MG/ML SYRINGE IV PRN (23:16)
[2020-04-02] MEDS ORDERED: NITROGLYCERIN SL TABS 0.4 MG TAB SUBLINGUAL PRN (23:16)
[2020-04-02] MEDS ORDERED: ASPIRIN 81 MG PO STA (23:16)
[2020-04-03 05:51] LABS: Cholesterol 118 mg/dL (<200); HDL Cholesterol 39 mg/dL (40-60); LDL Cholesterol,Calculated 60 mg/dL (0-99); Triglycerides 94 mg/dL (<150)
[2020-04-03 07:52] VITALS: RESP 12
[2020-04-03] MEDS ORDERED: ASPIRIN 325 MG TAB PO SCH (09:00)
[2020-04-03] MEDS ORDERED: ATORVASTATIN 80 MG TAB PO SCH (09:00)
[2020-04-03] MEDS ORDERED: CYCLOBENZAPRINE 10 MG TAB PO PRN (09:41)
--- NOTE | 2020-04-03 10:26 | US ---
EXAMINATION TYPE: US carotid duplex BILAT DATE OF EXAM: 04/03/2020 COMPARISON: NONE CLINICAL HISTORY: chest pain. Left side chest pain. No hx TIA. Patient states she has HTN controlle d with meds. EXAM MEASUREMENTS: RIGHT: Peak Systolic Velocity (PSV) cm/sec ----- Right CCA: 42.7 ----- Right ICA: 73.5 ----- Right ECA: 82.3 ICA/CCA ratio: 1.7 RIGHT: End Diastole cm/sec ----- Right CCA: 15.6 ----- Right ICA: 30.7 ----- Right ECA: 9.8 LEFT: Peak Systolic Velocity (PSV) cm/sec ----- Left CCA: 60.3 ----- Left ICA: 104.3 ----- Left ECA: 43.3 ICA/CCA ratio: 1.7 LEFT: End Diastole cm/sec ----- Left CCA: 21.9 ----- Left ICA: 53.8 ----- Left ECA: 11.9 VERTEBRALS (direction of flow): Right Vertebral: Antegrade Left Vertebral: Antegrade Rhythm: Normal IMPRESSION: No wall thickening. No elevated velocities or significant stenosis. Small amount of pl aque seen in bilateral bulbs. Criteria for Assigning % of Stenosis / Diameter reduction (Estimation based on the indirect measurements of the internal carotid artery velocities (ICA PSV). 1. Normal (no stenosis)=ICA PSV < 125 cm/s: ratio < 2.0: ICA EDV<40 cm/s. 2. Less than 50% stenosis=ICA PSV < 125 cm/s: ratio < 2.0: ICA EDV<40 cm/s. 3. 50 to 69% stenosis=ICA PSV of 125 to 230 cm/s: ration 2.0 ? 4.0: ICA EDV 40-100 cm/s. 4. Greater than 70% stenosis to near occlusion= ICA PSV > 230 cm/s: ratio > 4.0: ICA EDV > 100 cm/s. 5. Near occlusion= ICA PSV velocities may be low or undetectable: variable ratio and ICA EDV. 6. Total occlusion=unable to detect flow.
--- NOTE | 2020-04-03 10:29 | CONS ---
CONSULTATION HISTORY OF PRESENT ILLNESS: Chelsey is a 64-year-old lady with history of hypertension, dyslipidemia, hypothyroidism, who presents to the hospital initially with left leg tingling and numbness and discomfort and subsequently she had discomfort in the left arm. She is admitted to the hospital as chest pain but she states that she did not have any chest pain. At the time of my evaluation, her predominant symptom is the left arm and the left leg discomfort. At the time of my evaluation, she is chest pain free, hemodynamically stable and does not have any other symptoms. An EKG did not reveal acute ischemic changes. Cardiac enzymes have been negative. PAST MEDICAL HISTORY: Significant for hypertension, hypothyroidism, dyslipidemia. MEDICATIONS: Medications at home include Flexeril, Synthroid, Mevacor 20 daily, hydralazine 25 t.i.d., Lopressor 50 daily, omeprazole, Cozaar 100 daily, Symbicort, and Carafate. ALLERGIES: There are no known drug allergies. FAMILY HISTORY: Negative for premature coronary artery disease. SOCIAL HISTORY: Negative for current smoking, EtOH abuse, or drug abuse. REVIEW OF SYSTEMS: HEENT is unremarkable. Cardiac as described above. Respiratory as described above. GI negative. negative. Allergy and immunology negative. Skin negative. Musculoskeletal negative for arthritis. Psychosocial negative. Hematological negative. Derm negative. Constitutional negative. PHYSICAL EXAM: She is comfortable at rest. Vital signs are stable. There is no jugular venous distention. Carotid upstroke is normal. There is no bruit. Chest exam reveals good air entry bilaterally. Heart exam reveals first and second heart sounds. No gallop. No murmur. No rub. Abdomen is soft, nontender. Exam of extremities did not reveal any edema. Peripheral pulses are palpable. EKG does not reveal ischemic changes. ASSESSMENT: 1. Left arm, left leg discomfort, noncardiac in origin. 2. Coronary artery disease status post angioplasty. PLAN: Patient needs neurological evaluation. I spoke to Dr. Ruiz, her primary care physician, who was there at the time of my evaluation and he is going to take care of these issues. From a cardiac standpoint, so far, she has not had any chest pain. Myocardial infarction is ruled out disease. I will obtain an echocardiogram to evaluate the LV function and wall motion. The patient had a recent catheterization and angioplasty in February of 2020 and had stenting of the distal RCA. Thank you for allowing us to participate in the care of this pleasant lady. [place] / TRISTONN: [id number] /
[2020-04-03 11:43] VITALS: BP 133/54; PULSE 68; TEMP 98.3
[2020-04-03] MEDS ORDERED: SUCRALFATE 1 GM TAB PO SCH (12:30)
--- NOTE | 2020-04-03 13:48 | ECHOF ---
Referral Reason:left arm pain/ chest pain MEASUREMENTS -------- HEIGHT: 157.5 cm WEIGHT: 82.6 kg BP: 108/64 RVIDd: 3.5 cm (< 3.3) IVSd: 1.2 cm (0.6 - 1.1) LVIDd: 3.9 cm (3.9 - 5.3) LVPWd: 1.4 cm (0.6 - 1.1) IVSs: 1.5 cm LVIDs: 2.7 cm LVPWs: 1.6 cm LAESV Index (A-L): 22.99 ml/m Ao Diam: 3.1 cm (2.0 - 3.7) AV Cusp: 1.7 cm (1.5 - 2.6) MV EXCURSION: 12.842 mm (> 18.000) MV EF SLOPE: 98 mm/s (70 - 150) EPSS: 0.4 cm MV E Pedro: 0.81 m/s MV DecT: 174 ms MV A Pedro: 0.70 m/s MV E/A Ratio: 1.15 RAP: 5.00 mmHg RVSP: 27.32 mmHg FINDINGS -------- This was a technically adequate study. The left ventricular size is normal. There is moderate concentric left ventricular hypertrophy. O verall left ventricular systolic function is normal with, an EF between 55 - 60 %. The diastolic fi lling pattern is normal for the age of the patient 11.90. The right ventricle is mildly enlarged. Normal LA size by volume 22+/-6 ml/m2. The right atrial size is normal. Interatrial and interventricular septum intact. The aortic valve is trileaflet and appears structurally normal. There is no evidence of aortic sten osis. Mild mitral regurgitation is present. Mild tricuspid regurgitation present. There is no evidence of pulmonary hypertension. The right v entricular systolic pressure, as measured by Doppler, is 27.32mmHg. There is no pulmonic regurgitation present. The aortic root size is normal. IVC Not well visulized. There is no pericardial effusion. CONCLUSIONS -------- 1. This was a technically adequate study. 2. The left ventricular size is normal. 3. There is moderate concentric left ventricular hypertrophy. 4. Overall left ventricular systolic function is normal with, an EF between 55 - 60 %. 5. The diastolic filling pattern is normal for the age of the patient 11.90 6. The right ventricle is mildly enlarged. 7. Normal LA size by volume 22+/-6 ml/m2. 8. The right atrial size is normal. 9. Interatrial and interventricular septum intact. 10. The aortic valve is trileaflet and appears structurally normal. 11. There is no evidence of aortic stenosis. 12. Mild mitral regurgitation is present. 13. Mild tricuspid regurgitation present. 14. There is no evidence of pulmonary hypertension. 15. The right ventricular systolic pressure, as measured by Doppler, is 27.32mmHg. 16. There is no pulmonic regurgitation present. 17. The aortic root size is normal. 18. IVC Not well visulized. 19. There is no pericardial effusion. CAPACITY PLANNING ENGINEER: Lucy Carlton RDCS
--- NOTE | 2020-04-03 15:53 | HP ---
HISTORY AND PHYSICAL CHIEF COMPLAINT: Discomfort in the left arm and tingling in the left foot with chest pain. HISTORY OF PRESENT ILLNESS: This is another admission for this 64-year-old white female. She came to emergency room after she had an episode at work where she felt tingling and discomfort in the left foot and then in the left arm. The tingling was in her left hand, but she had pain throughout the entire arm. She thought she might have had a slight chest discomfort, but she had no diaphoresis, shortness of breath, palpitations, nausea, vomiting, dizziness, etc. Studies in the emergency room were normal. REVIEW OF SYSTEMS: She had no other focal neurologic deficits including diplopia, and amaurosis fugax, etc. She had no fever and chills, cough, hemoptysis, abdominal pain, nausea, vomiting, diarrhea, melena, hematochezia, dysuria, frequency, urgency and incontinence, etc. Past medical history, family history, personal and social histories otherwise unremarkable and noncontributory. She is not allergic to any medication. She does have hypertension, quite a bit of difficulty with gastritis, hyperlipidemia. She is on Cozaar 100 mg once a day, hydralazine 50 mg t.i.d., vitamin D, Qvar 1 puff twice a day, metoprolol 50 mg twice a day, levothyroxine 0.1 mg a day, Carafate 1 g q.i.d., Ventolin HFA p.r.n., omeprazole 20 mg twice a day, lovastatin 20 mg q.h.s. Remainder of the history is unremarkable. She does not smoke and does not abuse alcohol. PHYSICAL EXAMINATION: Blood pressure 138/70, pulse 76, respirations 18 and she is afebrile. In general, she appeared to be well developed, well nourished, no acute distress. Skin color is normal. Skin is warm, dry. Lymph nodes not enlarged. Head, ears, eyes, nose, mouth, and throat were normal. Neck veins not distended. Thyroid not enlarged. Chest is clear. Cardiac exam is normal. No murmurs or extra sounds. No rubs. Abdomen is soft and nontender without visceromegaly or masses. Bowel sounds present. Extremities normal. Neurological is intact. Pulses are good in extremities. IMPRESSION: 1. Dysesthesias in the left foot and hand as well as left arm pain. 2. Chest pain. 3. Essential hypertension. 4. Gastritis and gastroesophageal reflux disease. 5. Osteoarthritis of the back, neck and right knee. PLAN: 1. Bed rest. 2. IV fluids. 3. Serial EKGs and enzymes. 4. Carotid duplex imaging. 5. Consult Cardiology. MMODL / IJN: [id number] /
[2020-04-03] MEDS ORDERED: hydrALAZINE HCL 25 MG TAB PO SCH (16:00)
--- NOTE | 2020-04-03 17:17 | DS ---
DISCHARGE SUMMARY CHIEF COMPLAINT: Dysesthesias in the left hand and left foot. HISTORY OF PRESENT ILLNESS AND PHYSICAL EXAM: Details of this lady's history and physical can be found in the initial workup. LABORATORY STUDIES: While she was in the hospital she had laboratory studies, details of which can be found in the laboratory section of her chart. COURSE IN THE HOSPITAL: After admission she was placed on bedrest and started on intravenous fluids and she had serial EKGs and enzymes. She was seen by Cardiology. After their evaluation, it was felt she could be discharged home. She will go home on usual activity, diet and medication and follow up in the office in several days. At that time she may be started on a neurologic and/or vascular evaluation. FINAL DIAGNOSES: 1. Dysesthesias in the left hand and foot. 2. Hypertension. 3. Arthritis. 4. Gastritis. OPERATIONS: None. CONSULTATIONS: Cardiology. She is improved. MMCRISTALL / TRISTONN: [id number] /
[2020-04-03] MEDS ORDERED: PANTOPRAZOLE 40 MG TABLET PO SCH (17:30)
[2020-04-03] MEDS ORDERED: LATANOPROST 0.005% OPHTH DROPS 2.5 ML BTL BOTH EYES SCH (21:00)
[2020-04-03] MEDS ORDERED: ATORVASTATIN 10 MG TAB PO SCH (21:00)
[2020-04-04] MEDS ORDERED: LEVOTHYROXINE 100 MCG TAB PO SCH (06:30)
[2020-04-04] MEDS ORDERED: LOSARTAN 50 MG TAB PO SCH (09:00)
[2020-04-04] MEDS ORDERED: METOPROLOL TARTRATE 50 MG TAB PO SCH (09:00)
== END 2020-04-03 12:53 | disposition home or self-care (01) ==
LOC: EC 20:29 → 1SOBS 23:16
PROVIDERS: ADMIT Family Medicine; ATTEND Family Medicine
DX: R20.8 Other disturbances of skin sensation (principal); R20.2 Paresthesia of skin; R06.02 Shortness of breath; R53.1 Weakness; M79.602 Pain in left arm; M79.642 Pain in left hand; R07.89 Other chest pain; R20.0 Anesthesia of skin; M79.605 Pain in left leg; I10 Essential (primary) hypertension; K29.70 Gastritis, unspecified, without bleeding; G56.02 Carpal tunnel syndrome, left upper limb; K21.9 Gastro-esophageal reflux disease without esophagitis; E78.5 Hyperlipidemia, unspecified; G89.29 Other chronic pain; E03.9 Hypothyroidism, unspecified; I25.10 Atherosclerotic heart disease of native coronary artery without angina pectoris; M47.819 Spondylosis without myelopathy or radiculopathy, site unspecified; M47.812 Spondylosis without myelopathy or radiculopathy, cervical region; M17.11 Unilateral primary osteoarthritis, right knee; Z90.49 Acquired absence of other specified parts of digestive tract; Z95.5 Presence of coronary angioplasty implant and graft; Z79.899 Other long term (current) drug therapy; Z79.51 Long term (current) use of inhaled steroids; Z79.890 Hormone replacement therapy; Z86.718 Personal history of other venous thrombosis and embolism; Z86.711 Personal history of pulmonary embolism; Z83.6 Family history of other diseases of the respiratory system; Z80.8 Family history of malignant neoplasm of other organs or systems; Z80.0 Family history of malignant neoplasm of digestive organs; Z80.42 Family history of malignant neoplasm of prostate; Z11.59 Encounter for screening for other viral diseases
CPT/HCPCS: 96361 ×2; 96360; 99285; 36415; 93005 ×2; 93306; 83880; 80061; 80053; 82550; 83605; 83735; 84100; 84484 ×2; 85025; 85610; 85730; 81003; 71046; 93880; 70450; G0378 ×2; U0003

== ENCOUNTER → 2020-08-30 | Outpatient (CLI) | payer MEDICARE | END | disposition home or self-care (01) | LOC: LABWHC1 11:17 | PROVIDERS: ATTEND Family Medicine | DX: U07.1 COVID-19 (principal); Z03.818 Encounter for observation for suspected exposure to other biological agents ruled out | CPT/HCPCS: U0003; C9803 ==

== ENCOUNTER → 2020-12-29 | Outpatient (CLI) | payer MEDICARE ==
--- NOTE | 2020-12-30 08:49 | MM ---
Reason for exam: screening (asymptomatic). Last mammogram was performed 1 year and 2 months ago. History: Patient is postmenopausal and is nulliparous. Physical Findings: A clinical breast exam by your physician is recommended on an annual basis and results should be correlated with mammographic findings. MG Screening Mammo w CAD Bilateral CC and MLO view(s) were taken. Prior study comparison: November 04, 2019, bilateral MG 3d screening mammo w/cad. October 01, 2018, bilateral MG 3d screening mammo w/cad. The breast tissue is heterogeneously dense. This may lower the sensitivity of mammography. Nodular density upper outer right breast zone A. ASSESSMENT: Incomplete: need additional imaging evaluation, BI-RAD 0 RECOMMENDATION: Special view mammogram of the right breast. If lesion persists on supplemental views, image directed ultrasound is recommended. [facility] will attempt to contact patient to return for supplemental views and ultrasound if indicated.
== END | disposition home or self-care (01) ==
LOC: RADMAMWWP 08:12
PROVIDERS: ATTEND Family Medicine
DX: Z12.31 Encounter for screening mammogram for malignant neoplasm of breast (principal); Z78.0 Asymptomatic menopausal state
CPT/HCPCS: 77067

== ENCOUNTER → 2021-01-06 | Outpatient (CLI) | payer MEDICARE ==
--- NOTE | 2021-01-06 08:38 | MM ---
Reason for exam: additional evaluation requested from abnormal screening. Last mammogram was performed less than 1 month ago. History: Patient is postmenopausal and is nulliparous. Physical Findings: Nurse did not find any significant physical abnormalities on exam. MG Work Up Mamm w CAD RT Spot compression CC, spot compression MLO, and ML view(s) were taken of the right breast. Prior study comparison: December 29, 2020, bilateral MG screening mammo w CAD. November 04, 2019, bilateral MG 3d screening mammo w/cad. The breast tissue is heterogeneously dense. This may lower the sensitivity of mammography. There is no discrete abnormality including area of concern. No significant new findings when compared with previous films. These results were verbally communicated with the patient and result sheet given to the patient on 01/06/21. ASSESSMENT: Benign, BI-RAD 2 RECOMMENDATION: Return to routine screening mammogram schedule for both breasts.
== END | disposition home or self-care (01) ==
LOC: RADMAMWWP 06:59
PROVIDERS: ATTEND Family Medicine
DX: Z78.0 Asymptomatic menopausal state (principal)
CPT/HCPCS: 77065

== ENCOUNTER 2021-05-25 22:58 | Emergency (ER) | payer MEDICARE ==
[2021-05-25 23:03] VITALS: TEMP 97.5
--- NOTE | 2021-05-25 23:32 | ED ---
Chest Pain HPI - General Chief Complaint: Chest Pain Stated Complaint: Chest Pain Time Seen by Provider: 05/25/21 23:00 Source: patient, RN notes reviewed, old records reviewed Mode of arrival: wheelchair Limitations: no limitations - History of Present Illness Initial Comments: This is a 65-year-old female to the emergency department today for evaluation. Patient presents today for evaluation regards to epigastric abdominal pain and burning for 3 days. No real heaviness on her chest no shortness of breath no fevers. Also complaining of some mild abdominal pain. No history of heart disease color is been removed. Patient believes that it is likely just reflux but the symptoms of been persistent she became more concerned is the time when on. Pain started on Sunday away came back worse today. With help with Maalox but not resolved. MD Complaint: chest pain, other (Epigastric abdominal pain) -: hour(s) Onset: after eating, awoke with symptoms Pain Location: substernal, epigastric Severity: moderate Severity scale (1-10): 2 Quality: sharp, other (Burning) Consistency: constant Improves With: nothing Worsens With: nothing Context: other (none) Anginal Symptoms: nausea, dyspnea (Patient states she is always short of breath) Other Symptoms: acid taste in mouth Treatments Prior to Arrival: none - Related Data Home Medications Medication Instructions Recorded Confirmed Lovastatin [Mevacor] 20 mg PO HS 12/09/14 04/02/20 hydrALAZINE HCL 25 mg PO TID 06/11/15 04/02/20 Budesonide-Formot 160-4.5 Mcg 2 puff INHALATION RT-DAILY PRN 09/16/16 04/02/20 [Symbicort 160-4.5 Mcg Inhaler] Levothyroxine Sodium [Synthroid] 100 mcg PO DAILY 09/17/16 04/02/20 Cyclobenzaprine [Flexeril] 10 mg PO TID PRN 02/21/17 04/02/20 Omeprazole 20 mg PO BID 02/21/17 04/02/20 Ergocalciferol (Vitamin D2) 50,000 unit PO Q30D 09/15/17 04/02/20 [Vitamin D2] Metoprolol Tartrate [Lopressor] 50 mg PO DAILY 09/15/17 04/02/20 Latanoprost [Xalatan 0.005%] 1 drop BOTH EYES HS 07/10/20 07/10/20 Losartan Potassium [Cozaar] 100 mg PO DAILY 04/02/20 04/02/20 Sucralfate [Carafate] 1 tab PO QID 04/02/20 04/02/20 Allergies Allergy/AdvReac Type Severity Reaction Status Date / Time No Known Allergies Allergy Verified 05/25/21 22:59 Review of Systems ROS Statement: Those systems with pertinent positive or pertinent negative responses have been documented in the HPI. ROS Other: All systems not noted in ROS Statement are negative. EKG Findings - EKG Comments: EKG Findings:: EKG shows nsr 69 IL 140 QRS 70 QTc 443 Past Medical History Past Medical History: Deep Vein Thrombosis (DVT), GERD/Reflux, Hyperlipidemia, Hypertension, Osteoarthritis (OA), Pulmonary Embolus (PE) Additional Past Medical History / Comment(s): chronic neck pain with bulging discs, DVT with PE in 2002; upper hiatal hernia repaired 2003 History of Any Multi-Drug Resistant Organisms: None Reported Past Surgical History: Cholecystectomy, Hernia Repair Additional Past Surgical History / Comment(s): hiatel hernia Past Anesthesia/Blood Transfusion Reactions: No Reported Reaction Additional Past Anesthesia/Blood Transfusion Reaction / Comment(s): dry heaves from anesthesia Past Psychological History: No Psychological Hx Reported Smoking Status: Never smoker Past Alcohol Use History: Rare Past Drug Use History: None Reported - Past Family History Brother(s) Family Medical History: Cancer Additional Family Medical History / Comment(s): bone cancer. brain cancer Sister(s) History Unknown: Yes Family Medical History: Cancer Additional Family Medical History / Comment(s): skin cancer. colon cancer Father Family Medical History: Cancer Additional Family Medical History / Comment(s): prostate,lung and brain cancer General Exam Limitations: no limitations General appearance: alert, in no apparent distress Head exam: Present: atraumatic, normocephalic, normal inspection Eye exam: Present: normal appearance, PERRL, EOMI. Absent: scleral icterus, conjunctival injection, periorbital swelling ENT exam: Present: normal exam, mucous membranes moist Neck exam: Present: normal inspection. Absent: tenderness, meningismus, lymphadenopathy Respiratory exam: Present: normal lung sounds bilaterally. Absent: respiratory distress, wheezes, rales, rhonchi, stridor Cardiovascular Exam: Present: regular rate, normal rhythm, normal heart sounds. Absent: systolic murmur, diastolic murmur, rubs, gallop, clicks GI/Abdominal exam: Present: soft, normal bowel sounds. Absent: distended, tenderness, guarding, rebound, rigid Extremities exam: Present: normal inspection, full ROM, normal capillary refill. Absent: tenderness, pedal edema, joint swelling, calf tenderness Back exam: Present: normal inspection Neurological exam: Present: alert, oriented X3, CN II-XII intact Psychiatric exam: Present: normal affect, normal mood Skin exam: Present: warm, dry, intact, normal color. Absent: rash Course Vital Signs 05/25/21 05/25/21 05/26/21 22:59 23:47 00:18 Temperature 97.5 F L Pulse Rate 80 61 67 Respiratory 20 20 18 Rate Blood Pressure 151/75 122/67 112/58 O2 Sat by Pulse 98 97 95 Oximetry 05/26/21 01:20 Temperature Pulse Rate 70 Respiratory 20 Rate Blood Pressure 130/77 O2 Sat by Pulse 97 Oximetry - Reevaluation(s) Reevaluation #1: 05/26/21 01:25 Medical record is reviewed Reevaluation #2: 05/26/21 01:25 Patient informed results and questions are answered Reevaluation #3: 05/26/21 01:25 Patient is in no distress - Consultations Consultation #1: Studies Chest x-ray, CT abdomen and pelvis negative for acute disease Chest Pain MDM - MDM 65 female to the ER for evaluation of epigastric abdominal pain. Persistent abdominal pain and chest pain here in the ER. Patient has otherwise no significant complaints. She was concern for heart although at this point patient is without chest pain or shortness of breath. Patient can be discharged home Disposition Clinical Impression: Chest pain, Atypical chest pain, Gastritis Disposition: HOME SELF-CARE Condition: Good Instructions (If sedation given, give patient instructions): Chest Pain (ED), Gastritis (ED) Is patient prescribed a controlled substance at d/c from ED?: No Referrals: Dino Ruiz MD [Primary Care Provider] - 1-2 days
[2021-05-25 23:47] LABS: Basophils % (A) 1 %; Eosinophils # (A) 0.1 k/uL (0-0.7); Eosinophils % (A) 2 %; HCT 36.7 % (34.0-46.0); HGB 12.9 gm/dL (11.4-16.0); Lymphocytes # (A) 1.4 k/uL (1.0-4.8); Lymphocytes % (A) 23 %; MCH 30.8 pg (25.0-35.0); MCHC 35.1 g/dL (31.0-37.0); MCV 87.8 fL (80.0-100.0); Mean Platelet Volume 8.7; Monocytes # (A) 0.4 k/uL (0-1.0); Monocytes % (A) 7 %; Neutrophils # (A) 4.1 k/uL (1.3-7.7); Neutrophils % (A) 66 %; Platelet Count 170 k/uL (150-450); RBC 4.19 m/uL (3.80-5.40); RDW 14.4 % (11.5-15.5); WBC 6.2 k/uL (3.8-10.6)
--- NOTE | 2021-05-26 00:08 | XR ---
EXAMINATION TYPE: XR chest 2V DATE OF EXAM: 05/25/2021 COMPARISON: 04/02/2020 HISTORY: Chest pain TECHNIQUE: 2 views FINDINGS: Heart is normal. Lungs are clear of infiltrate. There is no heart failure. There is small h iatal hernia. Bony thorax is intact IMPRESSION: No active cardiopulmonary disease. Normal heart. No change.
[2021-05-26 00:22] LABS: Albumin 3.5 g/dL (3.5-5.0); Calcium 9.1 mg/dL (8.4-10.2); Magnesium 2.1 mg/dL (1.6-2.3); Potassium 3.7 mmol/L (3.5-5.1); Total Bilirubin 0.3 mg/dL (0.2-1.3); Total Protein 6.1 g/dL (6.3-8.2)
[2021-05-26 00:27] LABS: INR 0.9 (<1.2); Partial Thromboplastin Time 21.1 sec (22.0-30.0)
[2021-05-26 01:21] VITALS: BP 130/77; PULSE 70; RESP 20
--- NOTE | 2021-05-26 01:28 | CT ---
EXAMINATION TYPE: CT abdomen pelvis w con DATE OF EXAM: 05/26/2021 COMPARISON: 03/18/2019 HISTORY: GENERALIZED ABD PAIN CT DLP: 1011.2 mGycm Automated exposure control for dose reduction was used. CONTRAST: Performed with IV Contrast, patient injected with 100 mL of Isovue 300. There is mild subsegmental atelectasis at the lung bases. There is moderate-sized hiatal hernia. Ther e is previous surgery at the esophageal hiatus. Stomach is intact. There is no pleural effusion. Ther e is no pericardial effusion. There is irregular 1.5 cm hypodensity posterior right lobe of the liver consistent with a cyst. The bile ducts are not dilated. There are clips from cholecystectomy. Spleen is intact. There is no evidence of a pancreatic mass. There is no adrenal mass. Kidneys show satisfactory contrast opacification. There is no hydronephrosi s. Ureters are not dilated. There is no retroperitoneal adenopathy. Delayed images show normal renal excretion. Bladder distends smoothly. There is no inguinal hernia. There is no free fluid in the pelv is. Uterus is anteverted. There is no sign of a pelvic mass. There is 3 cm cyst on the right ovary. Appendix not clearly seen. No sign of thickened appendix. There is no mesenteric edema. There is no ascites or free air. There is no bowel obstruction. Lumbar vertebra have fairly normal spacing and alignment. There is mild vacuum disc at L5-S1. There i s no compression fracture. Bony pelvis is intact. Hip joints are intact. IMPRESSION: 3 cm cyst on the right ovary without change in size compared to old exam. Appendix not seen. No sign of appendicitis. Minimal subsegmental atelectasis at the lung bases appears new compared to old exam. Hiatal hernia unchanged.
[2021-05-26] MEDS ORDERED: MAG HYDROX/AL HYDROX/SIMETH 30 ML, HYOSCYAMINE ELIXIR 10 ML PO STA ×2 (01:29)
== END 2021-05-26 01:49 | disposition home or self-care (01) ==
LOC: EC 22:58
DX: K29.70 Gastritis, unspecified, without bleeding (principal); I10 Essential (primary) hypertension; E78.5 Hyperlipidemia, unspecified; K21.9 Gastro-esophageal reflux disease without esophagitis; M19.90 Unspecified osteoarthritis, unspecified site; Z79.51 Long term (current) use of inhaled steroids; Z79.899 Other long term (current) drug therapy; Z86.718 Personal history of other venous thrombosis and embolism; Z86.711 Personal history of pulmonary embolism; Z90.49 Acquired absence of other specified parts of digestive tract
CPT/HCPCS: 36415; 71046; 74177; 80053; 83690; 83735; 83880; 84484; 85025; 85610; 85730; 93005; 99285

== ENCOUNTER → 2021-12-30 | Outpatient (CLI) | payer MEDICARE ==
--- NOTE | 2022-01-02 11:40 | MM ---
Reason for exam: screening (asymptomatic). Last mammogram was performed 1 year ago. History: Patient is postmenopausal and is nulliparous. Physical Findings: A clinical breast exam by your physician is recommended on an annual basis and results should be correlated with mammographic findings. MG Screening Mammo w CAD Bilateral CC and MLO view(s) were taken. Prior study comparison: January 06, 2021, right breast MG work up mamm w CAD RT. December 29, 2020, bilateral MG screening mammo w CAD. There are scattered fibroglandular densities. There is no discrete abnormality. No significant changes when compared with prior studies. ASSESSMENT: Negative, BI-RAD 1 RECOMMENDATION: Routine screening mammogram of both breasts in 1 year.
== END | disposition home or self-care (01) ==
LOC: RADMAMWWP 13:17
PROVIDERS: ATTEND Family Medicine
DX: Z12.31 Encounter for screening mammogram for malignant neoplasm of breast (principal); Z78.0 Asymptomatic menopausal state
CPT/HCPCS: 77067

== ENCOUNTER 2022-08-20 19:19 | Observation (INO) | payer MEDICARE ==
--- NOTE | 2022-08-20 19:40 | ED ---
SOB HPI - General Chief Complaint: Shortness of Breath Stated Complaint: MELISSA Time Seen by Provider: 08/20/22 19:20 Source: patient, EMS, RN notes reviewed Mode of arrival: EMS Limitations: no limitations - History of Present Illness Initial Comments: 66-year-old female history of multiple blood clots in past including DVT and PE who states while watching TV she started developing a racing heart with heart rate of 135 blood pressure 116/85 going breathing. No overt chest pain no fevers chills or sweats he was feeling chilled upon arrival here however. No other current complaints modifying factors at this time MD Complaint: shortness of breath - Related Data Home Medications Medication Instructions Recorded Confirmed Lovastatin [Mevacor] 20 mg PO HS 12/09/14 08/20/22 Omeprazole 20 mg PO BID 02/21/17 08/20/22 Ergocalciferol (Vitamin D2) 50,000 unit PO Q30D 09/15/17 08/20/22 [Vitamin D2] Metoprolol Tartrate [Lopressor] 50 mg PO DAILY 09/15/17 08/20/22 Latanoprost [Xalatan 0.005%] 1 drop BOTH EYES HS 04/02/20 08/20/22 Losartan Potassium [Cozaar] 100 mg PO HS 04/02/20 08/20/22 Sucralfate [Carafate] 1 gm PO BID 04/02/20 08/20/22 Albuterol Inhaler [Ventolin Hfa 1 - 2 puff INHALATION RT-QID PRN 08/20/22 08/20/22 Inhaler] Levothyroxine Sodium [Synthroid] 125 mcg PO DAILY 08/20/22 08/20/22 Meclizine HCl 12.5 - 25 mg PO QID PRN 08/20/22 08/20/22 Sucralfate [Carafate] 1 gm PO BID PRN 08/20/22 08/20/22 hydrALAZINE HCL [Apresoline] 50 mg PO TID 08/20/22 08/20/22 Allergies Allergy/AdvReac Type Severity Reaction Status Date / Time No Known Allergies Allergy Verified 08/20/22 22:04 Review of Systems ROS Statement: Those systems with pertinent positive or pertinent negative responses have been documented in the HPI. ROS Other: All systems not noted in ROS Statement are negative. Past Medical History Past Medical History: Deep Vein Thrombosis (DVT), GERD/Reflux, Hyperlipidemia, Hypertension, Osteoarthritis (OA), Pulmonary Embolus (PE) Additional Past Medical History / Comment(s): chronic neck pain with bulging discs, DVT with PE in 2002; upper hiatal hernia repaired 2003 History of Any Multi-Drug Resistant Organisms: None Reported Past Surgical History: Cholecystectomy, Hernia Repair Additional Past Surgical History / Comment(s): hiatel hernia Past Anesthesia/Blood Transfusion Reactions: No Reported Reaction Additional Past Anesthesia/Blood Transfusion Reaction / Comment(s): dry heaves from anesthesia Past Psychological History: No Psychological Hx Reported Smoking Status: Never smoker Past Alcohol Use History: Rare Past Drug Use History: None Reported - Past Family History Brother(s) Family Medical History: Cancer Additional Family Medical History / Comment(s): bone cancer. brain cancer Sister(s) History Unknown: Yes Family Medical History: Cancer Additional Family Medical History / Comment(s): skin cancer. colon cancer Father Family Medical History: Cancer Additional Family Medical History / Comment(s): prostate,lung and brain cancer General Exam - General Exam Comments Initial Comments: This is a well-developed well-nourished awake alert oriented 4 female Limitations: no limitations General appearance: alert, anxious Head exam: Present: atraumatic, normocephalic, normal inspection Eye exam: Present: normal appearance, PERRL, EOMI. Absent: scleral icterus, conjunctival injection, periorbital swelling ENT exam: Present: normal exam, mucous membranes moist Neck exam: Present: normal inspection, full ROM, other (No stridor JVD or bruits). Absent: tenderness, meningismus, lymphadenopathy Respiratory exam: Present: normal lung sounds bilaterally, other (Patient does demonstrate tachypnea). Absent: respiratory distress, wheezes, rales, rhonchi, stridor Cardiovascular Exam: Present: normal rhythm, tachycardia, normal heart sounds. Absent: systolic murmur, diastolic murmur, rubs, gallop, clicks GI/Abdominal exam: Present: soft, normal bowel sounds. Absent: distended, tenderness, guarding, rebound, rigid Extremities exam: Present: normal inspection, full ROM, normal capillary refill. Absent: tenderness, pedal edema, joint swelling, calf tenderness Back exam: Present: normal inspection Neurological exam: Present: alert, oriented X3, CN II-XII intact Psychiatric exam: Present: normal affect, normal mood Skin exam: Present: warm, dry, intact, normal color. Absent: rash Course Vital Signs 08/20/22 08/20/22 19:21 20:00 Temperature 97.8 F Pulse Rate 137 H 86 Respiratory 26 H 22 Rate Blood Pressure 124/71 131/72 O2 Sat by Pulse 93 L 95 Oximetry Medical Decision Making - Medical Decision Making I did discuss findings with the patient family was present. Patient currently is asymptomatic with his concern that this is never been quite like this before heart rate was almost 141 time at home. Patient will be admitted for cardiology evaluation and did discuss the case with Dr. Saldaña covering Dr. Ruiz - Lab Data Result diagrams: 08/20/22 19:55 08/20/22 19:55 Lab Results 08/20/22 08/20/22 08/20/22 Range/Units 19:55 19:55 19:55 WBC 6.4 (3.8-10.6) k/uL RBC 4.86 (3.80-5.40) m/uL Hgb 14.5 (11.4-16.0) gm/dL Hct 42.4 (34.0-46.0) % MCV 87.3 (80.0-100.0) fL MCH 29.8 (25.0-35.0) pg MCHC 34.2 (31.0-37.0) g/dL RDW 13.2 (11.5-15.5) % Plt Count 178 (150-450) k/uL MPV 9.7 Neutrophils % 61 % Lymphocytes % 29 % Monocytes % 6 % Eosinophils % 2 % Basophils % 0 % Neutrophils # 3.9 (1.3-7.7) k/uL Lymphocytes # 1.8 (1.0-4.8) k/uL Monocytes # 0.4 (0-1.0) k/uL Eosinophils # 0.1 (0-0.7) k/uL Basophils # 0.0 (0-0.2) k/uL PT 10.8 (9.0-12.0) sec INR 1.0 (<1.2) APTT 22.4 (22.0-30.0) sec D-Dimer 0.60 H (<0.60) mg/L FEU Sodium 138 (137-145) mmol/L Potassium 4.8 (3.5-5.1) mmol/L Chloride 107 (98-107) mmol/L Carbon Dioxide 23 (22-30) mmol/L Anion Gap 8 mmol/L BUN 16 (7-17) mg/dL Creatinine 0.94 (0.52-1.04) mg/dL Est GFR (CKD-EPI)AfAm 73 (>60 ml/min/1.73 sqM) Est GFR (CKD-EPI)NonAf 63 (>60 ml/min/1.73 sqM) Glucose 129 H (74-99) mg/dL Plasma Lactic Acid Sukh (0.7-2.0) mmol/L Calcium 9.1 (8.4-10.2) mg/dL Magnesium 1.8 (1.6-2.3) mg/dL Total Bilirubin 1.3 (0.2-1.3) mg/dL AST 50 H (14-36) U/L ALT 37 H (4-34) U/L Alkaline Phosphatase 76 (38-126) U/L Troponin I (0.000-0.034) ng/mL NT-Pro-B Natriuret Pep pg/mL Total Protein 7.1 (6.3-8.2) g/dL Albumin 4.2 (3.5-5.0) g/dL 08/20/22 08/20/22 08/20/22 Range/Units 19:55 19:55 22:00 WBC (3.8-10.6) k/uL RBC (3.80-5.40) m/uL Hgb (11.4-16.0) gm/dL Hct (34.0-46.0) % MCV (80.0-100.0) fL MCH (25.0-35.0) pg MCHC (31.0-37.0) g/dL RDW (11.5-15.5) % Plt Count (150-450) k/uL MPV Neutrophils % % Lymphocytes % % Monocytes % % Eosinophils % % Basophils % % Neutrophils # (1.3-7.7) k/uL Lymphocytes # (1.0-4.8) k/uL Monocytes # (0-1.0) k/uL Eosinophils # (0-0.7) k/uL Basophils # (0-0.2) k/uL PT (9.0-12.0) sec INR (<1.2) APTT (22.0-30.0) sec D-Dimer (<0.60) mg/L FEU Sodium (137-145) mmol/L Potassium (3.5-5.1) mmol/L Chloride (98-107) mmol/L Carbon Dioxide (22-30) mmol/L Anion Gap mmol/L BUN (7-17) mg/dL Creatinine (0.52-1.04) mg/dL Est GFR (CKD-EPI)AfAm (>60 ml/min/1.73 sqM) Est GFR (CKD-EPI)NonAf (>60 ml/min/1.73 sqM) Glucose (74-99) mg/dL Plasma Lactic Acid Sukh 1.6 (0.7-2.0) mmol/L Calcium (8.4-10.2) mg/dL Magnesium (1.6-2.3) mg/dL Total Bilirubin (0.2-1.3) mg/dL AST (14-36) U/L ALT (4-34) U/L Alkaline Phosphatase (38-126) U/L Troponin I <0.012 (0.000-0.034) ng/mL NT-Pro-B Natriuret Pep 74 pg/mL Total Protein (6.3-8.2) g/dL Albumin (3.5-5.0) g/dL - EKG Data -: EKG Interpreted by [facility] EKG shows normal: sinus rhythm, axis, intervals, QRS complexes, ST-T waves Rate: normal EKG Comments: EKG interpreted by me sinus rhythm a 68. Interval 144 QRS duration 91 QT since QTC 394/[address]-T wave changes seen at this time - Radiology Data Radiology results: image reviewed (Imaging interpreted by me in no acute processes no evidence of PE and CAT scan.) Disposition Clinical Impression: Paroxysmal tachycardia, Dyspnea Disposition: ADMITTED IP TO THIS [facility] Condition: Stable Referrals: Dino Ruiz MD [Primary Care Provider] - 1-2 days Decision Date: 08/20/22 Decision Time: 23:30
--- NOTE | 2022-08-20 20:16 | XR ---
EXAMINATION TYPE: XR chest 2V DATE OF EXAM: 08/20/2022 COMPARISON: 05/25/2021 HISTORY: Difficulty breathing TECHNIQUE: 2 views FINDINGS: Heart and mediastinum are normal. Lungs are clear. Diaphragm is normal. There is small hiat al hernia. Bony thorax is intact. IMPRESSION: No active cardiomegaly disease. No change
[2022-08-20 20:26] LABS: Basophils % (A) 0 %; Eosinophils # (A) 0.1 k/uL (0-0.7); Eosinophils % (A) 2 %; HCT 42.4 % (34.0-46.0); HGB 14.5 gm/dL (11.4-16.0); Lymphocytes # (A) 1.8 k/uL (1.0-4.8); Lymphocytes % (A) 29 %; MCH 29.8 pg (25.0-35.0); MCHC 34.2 g/dL (31.0-37.0); MCV 87.3 fL (80.0-100.0); Mean Platelet Volume 9.7; Monocytes # (A) 0.4 k/uL (0-1.0); Monocytes % (A) 6 %; Neutrophils # (A) 3.9 k/uL (1.3-7.7); Neutrophils % (A) 61 %; Platelet Count 178 k/uL (150-450); RBC 4.86 m/uL (3.80-5.40); RDW 13.2 % (11.5-15.5); WBC 6.4 k/uL (3.8-10.6)
[2022-08-20 20:43] LABS: Calcium 9.1 mg/dL (8.4-10.2)
[2022-08-20 20:51] LABS: Albumin 4.2 g/dL (3.5-5.0); Magnesium 1.8 mg/dL (1.6-2.3); Potassium 4.8 mmol/L (3.5-5.1); Total Bilirubin 1.3 mg/dL (0.2-1.3); Total Protein 7.1 g/dL (6.3-8.2)
[2022-08-20 20:52] LABS: Partial Thromboplastin Time 22.4 sec (22.0-30.0); Prothrombin Time 10.8 sec (9.0-12.0)
--- NOTE | 2022-08-20 22:52 | CT ---
EXAMINATION TYPE: CT angio chest DATE OF EXAM: 08/20/2022 COMPARISON: 11/14/2017 HISTORY: elevated d dimer CT DLP: 324.5 mGycm Automated exposure control for dose reduction was used. CONTRAST: Performed with IV Contrast, patient injected with 75 mL of Isovue 370. Images obtained from the thoracic inlet to the diaphragm with the IV contrast. There are Three-D post processed images. There is a large hiatal hernia. Heart size is normal. No pericardial effusion. There is no mediastina l adenopathy. There are no hilar masses. There is normal contrast opacification of the pulmonary charlene khadijah. No filling defect. There is mild interstitial density and subsegmental atelectasis right lung b ase. There are clips from cholecystectomy. There is some coarse interstitial density at the right pos terior lung base. No pulmonary mass. The thoracic aorta is intact. No aneurysm or dissection. The thoracic vertebra appear intact. No compression fracture. Sternum is intact. IMPRESSION: Negative exam. No evidence of pulmonary embolism. Hiatal hernia. No adverse change compared to the ol d exam. Fibrotic changes at the right lung base similar to old exam.
[2022-08-20] MEDS ORDERED: NALOXONE 0.4 MG/ML 1 ML VIAL IV PRN (23:46)
[2022-08-20] MEDS ORDERED: ACETAMINOPHEN TAB 325 MG TAB PO PRN (23:46)
[2022-08-20] MEDS ORDERED: ALBUTEROL NEBULIZED 2.5 MG/3 ML INHALATION PRN (23:48)
[2022-08-21] MEDS: SODIUM CHLORIDE 0.9% 1,000 ML IV SCH ×2 (01:50→14:55)
[2022-08-21 03:26] LABS: T4, Free (Free Thyroxine) 1.69 ng/dL (0.78-2.19)
[2022-08-21] MEDS ORDERED: LEVOTHYROXINE 125 MCG TAB PO SCH (06:30)
--- NOTE | 2022-08-21 07:56 | P.CRDCN ---
History of Present Illness History of present illness: This is a 66 year old female with a past medical history of right LE DVT and 3 Pulmonary embolisms, hypothyroidism, hypertension, dyslipidemia. 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 We have been asked to see in consultation for tachycardia. Patient presents emergency department with an episode yesterday of elevated heart rates. She states that she was sitting on the couch watching TV and had acute onset heart racing, palpitations. She had some associated lightheadedness and generalized weakness. She denies any chest pain, shortness of breath, syncope or loss of consciousness. She states that this has happened to her in the past about 10 years ago, she has had multiple workups in the outpatient setting with no diagnosis in the past. She denies any history of CAD, irregular heart rhythm, stroke, diabetes. She denies being diagnosed with hematological disorder She denies tobacco use. Patient states her palpitations lasted longer this time, she states it lasted up until she was in the ER, patient was tachycardic with HR 130s documented, however, no EKG of the tachycardia available. DIAGNOSTICS * EKG reveals sinus rhythm, heart 68, no significant STT wave abnormalities suggest acute ischemia * CTA of the chest was negative for pulmonary embolism * Telemetry tracings indicate sinus rhythm with heart rates in the 60s to 70s * Echocardiogram in 2020 revealed EF 5560 percent, moderate concentric LVH, mild mitral regurgitation, mild tricuspid regurgitation. * Chest xray no acute cardiopulmonary process * Laboratory reviewed, CBC unremarkable, d-dimer 0.6, troponin negative 3, sodium 138, potassium 4.8, BUN 16, serum creatinine 0.9, proBNP 74, TSH 0.087, free T4 1 0.6 * Current home cardiac medications include losartan 100 mg daily, hydralazine 50 mg TID, metoprolol titrate 50 mg daily REVIEW OF SYSTEMS At the time of my exam: CONSTITUTIONAL: Denies fever or chills. CARDIOVASCULAR: Denies chest pain, shortness of breath, orthopnea, PND. Reports palpitations. RESPIRATORY: Denies cough. GASTROINTESTINAL: Denies abdominal pain, diarrhea, constipation, nausea or vomiting. MUSCULOSKELETAL: Denies myalgias. NEUROLOGIC: Denies numbness, tingling, headacbe or weakness. ENDOCRINE: Denies fatigue, weight change, polydipsia or polyurina. GENITOURINARY: Denies burning, hematuria or urgency with micturation. HEMATOLOGIC: Denies history of anemia or bleeding. +history of DVT/PE PHYSICAL EXAMINATION Blood pressure 141/77, heart 72, afebrile, saturation 96% on room air CONSTITUTIONAL: No apparent distress. HEENT: Head is normocephalic. Pupils are equal, round. Sclerae anicteric. Mucous membranes of the mouth are moist. No JVD. No carotid bruit. CHEST EXAMINATION: Lungs are clear to auscultation. No chest wall tenderness is noted on palpation or with deep breathing. HEART EXAMINATION: Regular rate and rhythm. S1, S2 heard. No murmurs, gallops or rub. ABDOMEN: Soft, nontender. Positive bowel sounds. EXTREMITIES: 2+ peripheral pulses, no lower extremity edema and no calf tenderness. NEUROLOGIC EXAMINATION: Patient is awake, alert and oriented x3. ASSESSMENT Palpitations Reported Tachycardia, unable to capture on telemetry or EKG while inpatient at this time History of DVT and pulmonary embolisms Hypothyroidism Hypertension Dyslipidemia PLAN Reported Tachycardia, unable to capture on telemetry or EKG while inpatient at this time, no further symptoms overnight or this morning. Recommend increase activity, monitor on telemetry while inpatient, if no further episodes and patient is asymptomatic, ok to discharge from a cardiology perspective and follow up outpatient with Dr Fowler in the office for event monitor placement and echocardiogram can be done as an outpatient. Patient with a follow up appointment tomorrow 08/22 at 8:45AM. Nurse practitioner note has been reviewed by physician. Signing provider agrees with the documented findings, assessment, and plan of care. Past Medical History Past Medical History: Deep Vein Thrombosis (DVT), GERD/Reflux, Hyperlipidemia, Hypertension, Osteoarthritis (OA), Pulmonary Embolus (PE) Additional Past Medical History / Comment(s): chronic neck pain with bulging discs, DVT with PE in 2002; upper hiatal hernia repaired 2003 History of Any Multi-Drug Resistant Organisms: None Reported Past Surgical History: Cholecystectomy, Hernia Repair Additional Past Surgical History / Comment(s): hiatel hernia Past Anesthesia/Blood Transfusion Reactions: No Reported Reaction Additional Past Anesthesia/Blood Transfusion Reaction / Comment(s): dry heaves from anesthesia Past Psychological History: No Psychological Hx Reported Smoking Status: Never smoker Past Alcohol Use History: Rare Past Drug Use History: None Reported - Past Family History Brother(s) Family Medical History: Cancer Additional Family Medical History / Comment(s): bone cancer. brain cancer Sister(s) History Unknown: Yes Family Medical History: Cancer Additional Family Medical History / Comment(s): skin cancer. colon cancer Father Family Medical History: Cancer Additional Family Medical History / Comment(s): prostate,lung and brain cancer Medications and Allergies Home Medications Medication Instructions Recorded Confirmed Type Lovastatin [Mevacor] 20 mg PO HS 12/09/14 08/20/22 History Omeprazole 20 mg PO BID 02/21/17 08/20/22 History Ergocalciferol (Vitamin D2) 50,000 unit PO Q30D 09/15/17 08/20/22 History [Vitamin D2] Metoprolol Tartrate [Lopressor] 50 mg PO DAILY 09/15/17 08/20/22 History Latanoprost [Xalatan 0.005%] 1 drop BOTH EYES HS 04/02/20 08/20/22 History Losartan Potassium [Cozaar] 100 mg PO HS 04/02/20 08/20/22 History Sucralfate [Carafate] 1 gm PO BID 04/02/20 08/20/22 History Albuterol Inhaler [Ventolin Hfa 1 - 2 puff INHALATION RT-QID PRN 08/20/22 08/20/22 History Inhaler] Levothyroxine Sodium [Synthroid] 125 mcg PO DAILY 08/20/22 08/20/22 History Meclizine HCl 12.5 - 25 mg PO QID PRN 08/20/22 08/20/22 History Sucralfate [Carafate] 1 gm PO BID PRN 08/20/22 08/20/22 History hydrALAZINE HCL [Apresoline] 50 mg PO TID 08/20/22 08/20/22 History Allergies Allergy/AdvReac Type Severity Reaction Status Date / Time No Known Allergies Allergy Verified 08/20/22 22:04 Physical Exam Vitals: Vital Signs Temp Pulse Resp BP Pulse Ox 08/21/22 01:47 74 16 139/86 96 08/20/22 20:00 86 22 131/72 95 08/20/22 19:21 97.8 F 137 H 26 H 124/71 93 L Intake and Output 08/20/22 08/20/22 08/21/22 14:59 22:59 06:59 Other: Weight 80.739 kg Results 08/20/22 19:55 08/20/22 19:55 Cardiac Enzymes 08/20/22 08/20/22 08/21/22 Range/Units 19:55 19:55 00:21 AST 50 H (14-36) U/L Troponin I <0.012 0.034 (0.000-0.034) ng/mL 08/21/22 Range/Units 02:36 AST (14-36) U/L Troponin I 0.026 (0.000-0.034) ng/mL Coagulation 08/20/22 Range/Units 19:55 PT 10.8 (9.0-12.0) sec APTT 22.4 (22.0-30.0) sec CBC 08/20/22 Range/Units 19:55 WBC 6.4 (3.8-10.6) k/uL RBC 4.86 (3.80-5.40) m/uL Hgb 14.5 (11.4-16.0) gm/dL Hct 42.4 (34.0-46.0) % Plt Count 178 (150-450) k/uL Comprehensive Metabolic Panel 08/20/22 Range/Units 19:55 Sodium 138 (137-145) mmol/L Potassium 4.8 (3.5-5.1) mmol/L Chloride 107 (98-107) mmol/L Carbon Dioxide 23 (22-30) mmol/L BUN 16 (7-17) mg/dL Creatinine 0.94 (0.52-1.04) mg/dL Glucose 129 H (74-99) mg/dL Calcium 9.1 (8.4-10.2) mg/dL AST 50 H (14-36) U/L ALT 37 H (4-34) U/L Alkaline Phosphatase 76 (38-126) U/L Total Protein 7.1 (6.3-8.2) g/dL Albumin 4.2 (3.5-5.0) g/dL Current Medications Generic Name Dose Route Start Last Admin Trade Name Freq PRN Reason Stop Dose Admin Acetaminophen 650 mg 08/20/22 23:46 Acetaminophen Tab 325 Mg Tab PO Q6HR PRN Mild Pain or Fever > 100.5 Albuterol Sulfate 2.5 mg 08/20/22 23:48 Albuterol Nebulized 2.5 Mg/3 Ml INHALATION RT-QID PRN Shortness Of Breath Atorvastatin Calcium 10 mg 08/21/22 21:00 Atorvastatin 10 Mg Tab PO HS CHAR Ergocalciferol 1,250 mcg 08/24/22 09:00 Ergocalciferol 1,250 Mcg (50,000 Iu) Capsule PO Q30D CHAR Hydralazine HCl 50 mg 08/21/22 09:00 Hydralazine Hcl 50 Mg Tab PO TID CHAR Sodium Chloride 1,000 mls @ 75 mls/hr 08/20/22 23:45 08/21/22 01:50 Saline 0.9% IV 75 mls/hr .[id number] CHAR Administration Latanoprost 1 drops 08/21/22 21:00 Latanoprost 0.005% Ophth Drops 2.5 Ml Btl BOTH EYES HS CHAR Levothyroxine Sodium 125 mcg 08/21/22 06:30 08/21/22 06:40 Levothyroxine 125 Mcg Tab PO 125 mcg DAILY@0630 CHAR Administration Losartan Potassium 100 mg 08/21/22 21:00 Losartan 50 Mg Tab PO HS CHAR Metoprolol Tartrate 50 mg 08/21/22 09:00 Metoprolol Tartrate 50 Mg Tab PO DAILY CHAR Naloxone HCl 0.2 mg 08/20/22 23:46 Naloxone 0.4 Mg/Ml 1 Ml Vial IV Q2M PRN Opioid Reversal Pantoprazole Sodium 40 mg 08/21/22 09:00 Pantoprazole 40 Mg Tablet PO BID CHAR Sucralfate 1 gm 08/21/22 09:00 Sucralfate 1 Gm Tab PO BID [facility] Intake and Output 08/20/22 08/20/22 08/21/22 14:59 22:59 06:59 Other: Weight 80.739 kg Patient Weight 08/21/22 06:59 Weight 80.739 kg 08/20/22 19:55 08/20/22 19:55
[2022-08-21] MEDS ORDERED: PANTOPRAZOLE 40 MG TABLET PO SCH (09:00)
[2022-08-21] MEDS ORDERED: hydrALAZINE HCL 50 MG TAB PO SCH (09:00)
[2022-08-21] MEDS ORDERED: SUCRALFATE 1 GM TAB PO SCH (09:00)
[2022-08-21] MEDS ORDERED: METOPROLOL TARTRATE 50 MG TAB PO SCH (09:00)
[2022-08-21 12:42] VITALS: BP 119/69; PULSE 70; RESP 16; TEMP 98.1
[2022-08-21] MEDS ORDERED: LOSARTAN 50 MG TAB PO SCH (21:00)
[2022-08-21] MEDS ORDERED: LATANOPROST 0.005% OPHTH DROPS 2.5 ML BTL BOTH EYES SCH (21:00)
[2022-08-21] MEDS ORDERED: ATORVASTATIN 10 MG TAB PO SCH (21:00)
[2022-08-21] MEDS ORDERED: APIXABAN 5 MG TAB PO SCH (21:00)
--- NOTE | 2022-08-21 22:51 | DS ---
DISCHARGE SUMMARY CHIEF COMPLAINT: Tachycardia. HISTORY OF PRESENT ILLNESS AND PHYSICAL EXAMINATION: Details of this lady's history and physical can be found in the initial workup. LABORATORY STUDIES: While she was in the hospital, she had laboratory studies, details of which can be found in the laboratory section of her chart. COURSE IN THE HOSPITAL: After admission, she was placed on bedrest, started on intravenous fluids and placed on telemetry. She converted to normal sinus rhythm. She had no chest pain, orthopnea, PND, lightheadedness, etc. She was seen by Cardiology and it was felt she could be discharged and she will undergo an echocardiogram at a later date. She will go home on her usual activity, diet, and medication in addition to apixaban 5 mg twice a day. She has also been on a beta katherin. FINAL DIAGNOSES: 1. Supraventricular tachycardia. 2. History of hypertension. 3. History of gastritis. 4. Irritable bowel syndrome. OPERATIONS: None. CONSULTATION: Cardiology. She is improved. MMODL / IJN: [id number] /
--- NOTE | 2022-08-22 08:55 | HP ---
HISTORY AND PHYSICAL CHIEF COMPLAINT: Rapid heart beating. HISTORY OF PRESENT ILLNESS: This is another admission for this 66-year-old female. She has a history of hypertension, hyperlipidemia, but is otherwise fairly healthy. She began to notice a rapid heart beating. This did not stop. She felt a little bit dizzy and slightly in short of breath. She came to the emergency room. She was found to be in SVT. She had no chest pain, syncope, etc. REVIEW OF SYSTEMS: She denied any neurologic issues, cough, hemoptysis, abdominal pain, nausea, vomiting, etc. Past medical history, family history, and personal and social histories are all otherwise unremarkable or noncontributory or unchanged. MEDICATIONS: She cannot take Symbicort. She is on, 1. Montelukast. 2. Hydralazine. 3. Sucralfate. 4. Metoprolol. 5. Losartan. 6. Lovastatin. 7. Thyroid. 8. Omeprazole. 9. Ondansetron. 10.Vicodin. 11.Vitamin D. 12.Ventolin. 13.She uses Flexeril occasionally. She does not smoke and drinks alcohol only occasionally. She has had a lot of difficulty in the past with gastritis and irritable bowel syndrome. PHYSICAL EXAMINATION: VITAL SIGNS: Blood pressure is 142/84 with a pulse of 115 and respirations of 18. She is afebrile. GENERAL: She appeared to be in no acute distress. SKIN: Color is normal. Skin is warm, dry. HEAD, EARS, EYES, NOSE, MOUTH AND THROAT: Normal. NECK: Carotids are normal. There is no thyromegaly. CHEST: Demonstrated good breath sounds bilaterally. CARDIAC: Tachycardia. ABDOMEN: Soft and nontender. EXTREMITIES: Normal. NEUROLOGICAL: She is intact. DIAGNOSES: She is admitted to the hospital with diagnoses of: 1. New onset atrial fibrillation. 2. History of hypertension. 3. History of gastritis. 4. History of irritable bowel syndrome. PLAN: 1. Bedrest. 2. IV fluids. 3. Telemetry. 4. Cardiology consult. MMTOM / LONNY: [id number] /
[2022-08-24] MEDS ORDERED: ERGOCALCIFEROL 1,250 MCG (50,000 IU) CAPSULE PO SCH (09:00)
== END 2022-08-21 17:20 | disposition home or self-care (01) ==
LOC: EC 19:19 → 3SCARD 23:46 → 6NMEDSUR 08-21 00:31
PROVIDERS: ADMIT Family Medicine; ATTEND Family Medicine
DX: I47.1 Supraventricular tachycardia (principal); I10 Essential (primary) hypertension; K29.70 Gastritis, unspecified, without bleeding; K58.9 Irritable bowel syndrome, unspecified; R06.00 Dyspnea, unspecified; I48.91 Unspecified atrial fibrillation; E78.5 Hyperlipidemia, unspecified; K21.9 Gastro-esophageal reflux disease without esophagitis; E03.9 Hypothyroidism, unspecified; Z86.711 Personal history of pulmonary embolism; Z86.718 Personal history of other venous thrombosis and embolism; Z79.01 Long term (current) use of anticoagulants; Z79.890 Hormone replacement therapy; Z79.899 Other long term (current) drug therapy
CPT/HCPCS: 99285; 36415; 93005; 85379; 84439; 83880; 80053; 84443; 83605; 83735; 84484 ×2; 85025; 85610; 85730; 71046; 71275; G0378 ×2; Q9967

== ENCOUNTER 2023-03-24 03:07 | Emergency (ER) | payer MEDICARE ==
[2023-03-24 03:11] VITALS: RESP 18; TEMP 98.2
[2023-03-24] MEDS ORDERED: SODIUM CHLORIDE 0.9% 1,000 ML IV STA (03:18)
--- NOTE | 2023-03-24 03:35 | ED ---
Chest Pain HPI - General Chief Complaint: Chest Pain Stated Complaint: chest pain Time Seen by Provider: 03/24/23 03:14 Source: patient, RN notes reviewed, old records reviewed Mode of arrival: ambulatory Limitations: no limitations - History of Present Illness Initial Comments: This is a 67-year-old female to the ER today. Patient presents today for e valuation of chest pain. Patient does have history of asthma and COPD but cannot seem to be able to stick to her regimen today. Patient's chest feels tight feels mucousy, feels like she can't take a deep breath. Patient does admit to current chest pain as well. Tightness in her chest. No recent fever cough or congestion of travel history no sick contacts no prior history of heart disease MD Complaint: chest pain -: hour(s) Onset: during rest Pain Location: substernal Pain Radiation: none Severity: moderate Severity scale (1-10): 6 Quality: tightness, heaviness Consistency: constant Improves With: nothing Worsens With: nothing Anginal Symptoms: dyspnea Treatments Prior to Arrival: none - Related Data Home Medications Medication Instructions Recorded Confirmed Lovastatin [Mevacor] 20 mg PO HS 12/09/14 08/20/22 Omeprazole 20 mg PO BID 02/21/17 08/20/22 Ergocalciferol (Vitamin D2) 50,000 unit PO Q30D 09/15/17 08/20/22 [Vitamin D2] Latanoprost [Xalatan 0.005%] 1 drop BOTH EYES HS 04/02/20 08/20/22 Losartan Potassium [Cozaar] 100 mg PO HS 04/02/20 08/20/22 Sucralfate [Carafate] 1 gm PO BID 04/02/20 08/20/22 Albuterol Inhaler [Ventolin Hfa 1 - 2 puff INHALATION RT-QID PRN 08/20/22 08/20/22 Inhaler] Levothyroxine Sodium [Synthroid] 125 mcg PO DAILY 08/20/22 08/20/22 Meclizine HCl 12.5 - 25 mg PO QID PRN 08/20/22 08/20/22 Sucralfate [Carafate] 1 gm PO BID PRN 08/20/22 08/20/22 hydrALAZINE HCL [Apresoline] 50 mg PO TID 08/20/22 08/20/22 Previous Rx's Medication Instructions Recorded Apixaban [Eliquis] 5 mg PO BID #60 tab 08/21/22 Metoprolol Tartrate [Lopressor] 50 mg PO DAILY #90 tab 08/21/22 Allergies Allergy/AdvReac Type Severity Reaction Status Date / Time No Known Allergies Allergy Verified 03/24/23 03:09 Review of Systems ROS Statement: Those systems with pertinent positive or pertinent negative responses have been documented in the HPI. ROS Other: All systems not noted in ROS Statement are negative. EKG Findings - EKG Comments: EKG Findings:: EKG is sinus bradycardia 55 DC 144 QRS 92 QTC 411 - EKG Results: EKG: interpreted by GENOVEVA Past Medical History Past Medical History: Asthma, Deep Vein Thrombosis (DVT), GERD/Reflux, Hyperlipidemia, Hypertension, Osteoarthritis (OA), Pulmonary Embolus (PE) Additional Past Medical History / Comment(s): chronic neck pain with bulging discs, DVT with PE in 2002; upper hiatal hernia repaired 2003 History of Any Multi-Drug Resistant Organisms: None Reported Past Surgical History: Cholecystectomy, Hernia Repair Additional Past Surgical History / Comment(s): hiatal hernia Past Anesthesia/Blood Transfusion Reactions: No Reported Reaction Additional Past Anesthesia/Blood Transfusion Reaction / Comment(s): dry heaves from anesthesia Past Psychological History: No Psychological Hx Reported Smoking Status: Never smoker Past Alcohol Use History: Rare Past Drug Use History: None Reported - Past Family History Brother(s) Family Medical History: Cancer Additional Family Medical History / Comment(s): bone cancer. brain cancer Sister(s) History Unknown: Yes Family Medical History: Cancer Additional Family Medical History / Comment(s): skin cancer. colon cancer Father Family Medical History: Cancer Additional Family Medical History / Comment(s): prostate,lung and brain cancer General Exam Limitations: no limitations General appearance: alert, in no apparent distress, anxious Head exam: Present: atraumatic, normocephalic, normal inspection Eye exam: Present: normal appearance, PERRL, EOMI. Absent: scleral icterus, conjunctival injection, periorbital swelling ENT exam: Present: normal exam, mucous membranes moist Neck exam: Present: normal inspection. Absent: tenderness, meningismus, lymphadenopathy Respiratory exam: Present: normal lung sounds bilaterally. Absent: respiratory distress, wheezes, rales, rhonchi, stridor Cardiovascular Exam: Present: regular rate, normal rhythm, normal heart sounds. Absent: systolic murmur, diastolic murmur, rubs, gallop, clicks GI/Abdominal exam: Present: soft, normal bowel sounds. Absent: distended, tenderness, guarding, rebound, rigid Extremities exam: Present: normal inspection, full ROM, normal capillary refill. Absent: tenderness, pedal edema, joint swelling, calf tenderness Back exam: Present: normal inspection Neurological exam: Present: alert, oriented X3, CN II-XII intact Psychiatric exam: Present: normal affect, normal mood Skin exam: Present: warm, dry, intact, normal color. 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 sent in by a medical professional or institution? @ -no Did you speak to anyone other than the patient for history? @ -no Did you review nursing and triage notes? @ -agree Were old charts reviewed? @ -yes Differential Diagnosis? @ -prior EKG interpreted by me (3pts min.)? @ -yes X-rays interpreted by me (1pt min.)? @ -yes CT interpreted by me (1pt min.)? @ -no U/S interpreted by me (1pt. min.)? @ -no What testing was considered but not performed? (CT, X-rays, U/S, labs)? Why? @ -no What meds were considered but not given? Why? @ -no Did you discuss the management of the patient with other professionals? @ -no Did you reconcile home meds? @ -no Was smoking cessation discussed for >3mins.? @ -no Was critical care preformed (if so, how long)? @ -no Were there social determinants of health that impacted care today? How? (Homelessness, low income, unemployed, alcoholism, drug addiction, transportation, low edu. Level, literacy, decrease access to med. care, [facility], rehab)? @ -no Was there de-escalation of care discussed even if they declined? (Discuss DNR or withdrawal of care, Hospice)? @ -no What co-morbidities impacted this encounter? (DM, HTN, Smoking, COPD, CAD, Cancer, CVA, Hep., AIDS, mental health diagnosis, sleep apnea, morbid obesity)? @ -none Was patient admitted / discharged? @ -67 female to the emergency department for evaluation of chest pain today with underlying COPD possible pleuritic type pleurisy pain. Patient has proved here in the ER feels well and can be discharged home Discharge Undiagnosed new problem with uncertain prognosis? @ -no Drug Therapy requiring intensive monitoring for toxicity (Heparin, Nitro, Insulin, Cardizem)? @ -no Were any procedures done? @ -no Diagnosis/symptom? @ -Chest pain, COPD exacerbation Acute, or Chronic, or Acute on Chronic? @ -acute Uncomplicated (without systemic symptoms) or Complicated (systemic symptoms)? @ -complicated Side effects of treatment? @ -no Exacerbation, Progression, or Severe Exacerbation] @ -no Poses a threat to life or bodily function? @ -yes with ACS hypoxia from COPD Reevaluation #5: 03/24/23 04:27 Differential Chest Pain: Stable Angina, Unstable Angina, STEMI, NSTEMI Aortic Dissection, Pneumothorax, Musculoskeletal, Esophageal Spasm GERD, Cholecystitis, Pancreatitis, Zoster, this is not meant to be an all-inclusive list. Chest Pain MDM - MDM 67 female to the emergency department for evaluation of chest pain today with underlying COPD possible pleuritic type pleurisy pain. Patient has proved here in the ER feels well and can be discharged home Disposition Clinical Impression: Chest pain, Atypical chest pain, Shortness of breath Disposition: HOME SELF-CARE Condition: Good Instructions (If sedation given, give patient instructions): Chest Pain (ED) Is patient prescribed a controlled substance at d/c from ED?: No Referrals: Dino Ruiz MD [Primary Care Provider] - 1-2 days Time of Disposition: 06:00
[2023-03-24] MEDS ORDERED: IPRATROPIUM-ALBUTEROL 3 ML NEB INHALATION STA (03:54)
[2023-03-24 04:24] LABS: Basophils % (A) 0 %; Eosinophils # (A) 0.1 k/uL (0-0.7); Eosinophils % (A) 2 %; HCT 36.3 % (34.0-46.0); HGB 12.2 gm/dL (11.4-16.0); Lymphocytes # (A) 1.4 k/uL (1.0-4.8); Lymphocytes % (A) 27 %; MCH 28.7 pg (25.0-35.0); MCHC 33.6 g/dL (31.0-37.0); MCV 85.3 fL (80.0-100.0); Mean Platelet Volume 9.1; Monocytes # (A) 0.4 k/uL (0-1.0); Monocytes % (A) 7 %; Neutrophils # (A) 3.3 k/uL (1.3-7.7); Neutrophils % (A) 62 %; Platelet Count 193 k/uL (150-450); RBC 4.26 m/uL (3.80-5.40); RDW 13.6 % (11.5-15.5); WBC 5.3 k/uL (3.8-10.6)
[2023-03-24 04:36] LABS: INR 0.9 (<1.2); Partial Thromboplastin Time 22.4 sec (22.0-30.0); Prothrombin Time 10.1 sec (9.0-12.0)
[2023-03-24 04:38] LABS: ALT 31 U/L (4-34); AST 27 U/L (14-36); African American GFR (CKD) 69 (>60 ml/min/1.73 sqM); Albumin 3.2 g/dL (3.5-5.0); Alkaline Phosphatase 65 U/L (38-126); Anion Gap 6 mmol/L; Blood Urea Nitrogen 10 mg/dL (7-17); Calcium 8.3 mg/dL (8.4-10.2); Carbon Dioxide 26 mmol/L (22-30); Chloride 107 mmol/L (98-107); Glucose 103 mg/dL (74-99); Lipase 115 U/L (23-300); Magnesium 1.9 mg/dL (1.6-2.3); Non-African American GFR(CKD) 59 (>60 ml/min/1.73 sqM); Potassium 3.3 mmol/L (3.5-5.1); Sodium 139 mmol/L (137-145); Total Bilirubin 0.5 mg/dL (0.2-1.3); Total Protein 5.7 g/dL (6.3-8.2)
[2023-03-24 06:13] VITALS: BP 131/66; PULSE 62
--- NOTE | 2023-03-24 07:38 | XR ---
EXAMINATION TYPE: XR chest 1V portable DATE OF EXAM: 03/24/2023 COMPARISON: 08/20/2022 INDICATION: Chest pain midsternal TECHNIQUE: Single frontal view of the chest is obtained. FINDINGS: The heart size is normal. The pulmonary vasculature is normal. The lungs are clear. IMPRESSION: 1. No acute pulmonary process.
== END 2023-03-24 06:15 | disposition home or self-care (01) ==
LOC: EC 03:07
DX: J44.1 Chronic obstructive pulmonary disease with (acute) exacerbation (principal); I10 Essential (primary) hypertension; K21.9 Gastro-esophageal reflux disease without esophagitis; E78.5 Hyperlipidemia, unspecified; Z79.899 Other long term (current) drug therapy
CPT/HCPCS: 36415; 71045; 80053; 83690; 83735; 83880; 84484; 85025; 85610; 85730; 93005; 94640; 96360; 96361; 99285

== ENCOUNTER → 2023-10-18 | Outpatient (CLI) | payer MEDICARE ==
--- NOTE | 2023-10-18 20:22 | MM ---
Reason for Exam: Screening (asymptomatic). Last mammogram was performed 1 year(s) and 9 month(s) ago. Patient History: Menarche at age 12. Patient has no children. Postmenopausal. Risk Values: Laura 5 year model risk: 1.9%. NCI Lifetime model risk: 5.9%. Prior Study Comparison: 12/29/2020 Bilateral Screening Mammogram, [facility]. 01/06/2021 Right Diagnostic Mammogram, [facility]. 12/30/2021 Bilateral Screening Mammogram, [facility]. Tissue Density: There are scattered fibroglandular densities. Findings: Analyzed By CAD. There is no suspicious group of microcalcifications or new suspicious mass in either breast. Overall Assessment: Negative, BI-RAD 1 Management: Screening Mammogram of both breasts in 1 year. . Patient should continue monthly self-breast exams. A clinical breast exam by your physician is recommended on an annual basis. This exam should not preclude additional follow-up of suspicious palpable abnormalities. Note on Laura scores and lifetime risk: 1. A Laura score greater than 3% is considered moderate risk. If this is the case, consider specialist referral to assess eligibility for a risk reducing agent. 2. If overall lifetime risk for the development of breast cancer is 20% or higher, the patient may qualify for future screening with alternating mammogram and breast MRI. Electronically signed and approved by: Mac Carrera M.D. Radiologist
== END | disposition home or self-care (01) ==
LOC: RADMAMWWP 07:13
PROVIDERS: ATTEND Family Medicine
DX: Z12.31 Encounter for screening mammogram for malignant neoplasm of breast (principal); Z78.0 Asymptomatic menopausal state
CPT/HCPCS: 77067